=== PATIENT | male | born 1970 | race Caucasian/White ===

== ENCOUNTER 2017-10-24 19:37 | Inpatient (IN) | payer OTHER ==
[~2017-10-24] VITALS: Ht 170.2 cm; Wt 83.9 kg
[~2017-10-24 19:37] MED LIST: ADVAIR 250-501 EACH INH; CHLORDIAZEPOXID25 M3 PO; CLEOCIN HCL300 M1 PO; DAILY VALUE1 EACH PO; FISH OIL 1,0001 EAC1 PO; GLUCOSAMINE &1 EAC1 PO; LEXAPRO20 M1 PO; NALTREXONE HCL50 M1 PO; TOPROL XL100 M1 PO; VICODIN 5-3001 EACH PO; VITAMIN D31000 UNI1 PO; [UNRECOGNIZED DRUG - CODE] PO
[2017-10-24 20:33] LABS: ABSOLUTE BASOPHIL COUNT 0.1 /CUMM (0.0-0.2); ABSOLUTE EOSINOPHIL COUNT 0.1 /CUMM (0.0-0.7); ABSOLUTE GRANULOCYTE CT 3.1 /CUMM (1.4-6.5); ABSOLUTE LYMPH COUNT 3.4 /CUMM (1.2-3.4); ABSOLUTE MONOCYTE COUNT 0.4 /CUMM (0.10-0.60); BASOPHIL % 1.1 % (0.0-2.0); EOSINOPHIL % 1.5 % (0-5); GRANULOCYTE % 43.9 % (42.2-75.2); HEMATOCRIT 43.3 % (42-52); MEAN CORPUSCULAR HGB 31.4 PG (27.0-31.0); MEAN CORPUSCULAR VOLUME 92.3 FL (80.0-94.0); MEAN PLATELET VOLUME 7.6 FL (7.4-10.4); PLATELET COUNT 254 /CUMM (130-400); RBC DISTRIBUTION WIDTH 13.1 % (11.5-14.5); RED BLOOD CELL CT 4.69 /CUMM (4.70-6.10); WHITE BLOOD CELL COUNT 7.1 /CUMM (4.8-10.8)
--- NOTE | 2017-10-24 22:05 | ED NECK/BACK PAIN COMPLAINT ---
See Addendum History of Present Illness General Chief Complaint: General Adult Stated Complaint: PT HAS PAIN ON THE RIGTH SIDE AND IS NUMB Source: patient, old records Exam Limitations: no limitations Vital Signs & Intake/Output Vital Signs & Intake/Output Vital Signs Date Time Temp Pulse Resp B/P B/P Pulse O2 O2 Flow FiO2 Mean Ox Delivery Rate 10/25 0135 98.2 88 18 128/82 96 Room Air 10/25 0134 98.2 88 18 128/82 10/24 2347 98.6 90 18 104/68 10/24 2347 98.6 90 18 104/68 95 Room Air 10/24 1957 98.4 85 16 155/105 95 Room Air ED Intake and Output 10/25 0000 10/24 1200 Intake Total Output Total Balance Patient 190 lb Weight Allergies Coded Allergies: No Known Allergies (11/09/15) Reconcile Medications Chlordiazepoxide HCl 25 MG CAPSULE 1-2 CAP PO TID PRN alcohol withdrawal symptoms eight tabs...[id number] Cholecalciferol (Vitamin D3) (Vitamin D3) 1,000 UNIT CAPSULE 1 CAP PO DAILY SUPPLEMENT (Reported) Escitalopram Oxalate (Lexapro) 20 MG TABLET 1 TAB PO DAILY ANXIETY (Reported) Fluticasone/Salmeterol (Advair 250-50 Diskus) (Unknown Strength) BLST.W.DEV ( Unknown Dose) INH BID RESPIRATORY (Reported) Gluc 2KCL/Chondr/Cecile Hy/Hy AC (Glucosamine & Chondroitin Cap) 1 EACH CAPSULE 1 CAP PO DAILY SUPPLEMENT (Reported) Metoprolol Succ XL (Toprol XL) 100 MG TAB.ER.24H 1 TAB PO DAILY BP (Reported) Multivitamin (Daily Value) 1 EACH TABLET 1 TAB PO DAILY VITAMIN SUPPORT ( Reported) Naltrexone HCl 50 MG TABLET 1 TAB PO QPM SUBSTANCE ABUSE (Reported) [place]-3 Fatty Acids/Fish Oil (Fish Oil 1,000 MG Softgel) 1 EACH CAPSULE 1 CAP PO DAILY SUPPLEMENT (Reported) Vit B Complex 100 Cmb #3/Herbs (Balanced B-100 Tablet) 100 MG TABLET 1 TAB PO DAILY VITAMIN SUPPORT (Reported) Triage Note: PT TO TRIAGE C/O NECK PAIN X5 DAYS WITH R SIDE FACE AND ARM NUMBNESS SINCE YESTERDAY. PT STATES HAD 1/2 PINT VODKA AT 10 AM TO TRY AND "CURE THE PAIN." DENIES DAILY DRINKING. DENIES W/D SEIZURES. DENIES CP. Triage Nurses Notes Reviewed? yes Onset: Abrupt Duration: week(s): (1), intermittent, waxing and waning Timing: recent history Quality/Severity: mild (numbness) Location: paraspinous muscles Radiation: none Method of Injury: lifting pergola Associated Symptoms: etoh use HPI: 2-year-old male with history of hypertension, alcohol abuse presents to the ER complaining of right-sided neck pain radiating down his right arm and down his right back to his leg for the past 1 week after he states he was lifting a Pergola up. This happened at work there was no fall. He denies any chest pain shortness of breath. The symptoms are waxing and waning and intermittent in nature. Nothing preceded the episodes though. He denies any facial weakness slurred speech. His mother denies any changes mental status. No headache. He states at times his face feels numb. The patient does report that he had been drinking this evening in an attempt to improve his symptoms. On arrival the patient states that he is also looking for alcohol detox. He drinks daily he is gone through bad withdrawals before however denies history of seizure. No SI no HI. He denies any drug use. (Alfonzo Blanchard) Past History Travel History Traveled to [place] past 21 day No Medical History Any Pertinent Medical History? 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 No (Alfonzo Blanchard) Review of Systems Review of Systems Constitutional: Reports: see HPI. Comments Review of systems: See HPI, All other systems negative. Constitutional, no chills no fever, HEENT: no sore throat no congestion Cardiovascular: No chest pain , Skin: no rashes, no change in skin Respiratory: No dyspnea no cough no sputum GI: No nausea no vomiting, Muscle skeletal: No joint pain, no back pain, no neck pain, Neurologic: , no headache Heme/endocrine: No bruising (Alfonzo Blanchard) Physical Exam Physical Exam General Appearance: well developed/nourished, alert, awake Neck: normal inspection, supple, full range of motion Comments: Well-developed well-nourished person in no acute distress HEENT: Normal EENT exam; PERRL, EOMI, no nystagmus. HEAD is atraumatic. moist mucous membranes. Neck: Supple, no bruit normal range of motion Back: Full range of motion Cardiovascular: Regular rate and rhythms no murmurs Respiratory: Chest nontender.There were no bony deformities, no asymmetry. No respiratory distress. Patient speaking in full complete sentences. Breath sounds clear to auscultation bilaterally: NO W/R/R Abdomen: Soft, nontender nondistended, Extremity: No edema, full range of motion of extremities, normal and equal pulses bilaterally, 5 out of 5 strength noted to bilateral upper and lower extremities Neuro: Alert oriented x3, motor sensory normal, cranial nerves II through XII grossly intact. There were no obvious focal neurologic abnormalities. Skin: No appreciable rash on exposed skin, skin is warm and dry. Psych: Mood and affect is normal, memory and judgment is normal. Core Measures CVA/TIA Diagnosis: No (Alfonzo Blanchard) Progress Differential Diagnosis: C spine injury, cauda equina syn, herniated disc, myofascial strain, spinal cord inj, TIA. CVA, ETOH ABUSE, ETOH WITHDRAWAL, ELECTROLYTE ABNORMALITY Plan of Care: Orders Procedure Date/time Status URINE DRUG SCREEN FOR ER ONLY 10/25 0040 Active Pathway - chart 10/25 0039 Active CIWA 10/243 Active Add-on Test (ER Only) 10/24 2216 Active ETHANOL 10/24 202 Complete TROPONIN LEVEL 10/24 1950 Complete LIPASE 10/24 1950 Complete COMPREHENSIVE METABOLIC PANEL 10/24 1950 Complete CBC WITHOUT DIFFERENTIAL 10/24 1950 Complete EKG 10/24 1939 Active Current Medications Sig/Romeo Start time Last Medication Dose Stop Time Status Admin Lorazepam 1.5 MG Q12H 10/27 0600 UNVr (Ativan) 10/27 180 Lorazepam 1.5 MG Q6 10/26 0600 UNVr (Ativan) 10/26 1801 Metoprolol Tartrate 100 MG BID 10/25 0900 UNVr (Lopressor) Escitalopram Oxalate 10 MG 0800 10/25 0800 UNVr (Lexapro) Lorazepam 2 MG Q6 10/25 0600 UNVr (Ativan) 10/26 0001 Laboratory Tests 10/25/17 0120: Urine Opiates Screen Pending, Methadone Screen Pending, Barbiturate Screen Pending, Ur Phencyclidine Scrn Pending, Amphetamines Screen Pending, U Benzodiazepines Scrn Pending, Urine Cocaine Screen Pending, Urine Cannabis Screen Pending 10/24/172025: Anion Gap 13, Estimated GFR > 60, BUN/Creatinine Ratio 18.3, Glucose 135 H, Calcium 8.2 L, Total Bilirubin 0.5, AST 36, ALT 44, Alkaline Phosphatase 78, Troponin I < 0.01, Total Protein 6.8, Albumin 4.1, Globulin 2.7, Albumin/ Globulin Ratio 1.5, Lipase 238, CBC w Diff NO MAN DIFF REQ, RBC 4.69 L, MCV 92.3, MCH 31.4 H, MCHC 34.0, RDW 13.1, MPV 7.6, Gran % 43.9, Lymphocytes % 48.3 , Monocytes % 5.2, Eosinophils % 1.5, Basophils % 1.1, Absolute Granulocytes 3.1 , Absolute Lymphocytes 3.4, Absolute Monocytes 0.4, Absolute Eosinophils 0.1, Absolute Basophils 0.1, Serum Alcohol 367.0 I discussed with the patient all his labs CAT scan is neurologically intact, no focal weakness to the right side. The patient is requesting alcohol detox and discussed with them plan going forward we will watch him overnight given his elevated alcohol level at this time, we will MONITOR ciwa levels 100 case d/w and signed out to dr cerna pending sobriety, [facility] Diagnostic Imaging: Viewed by Me: Radiology Read, CT Scan. Discussed w/RAD: Radiology Read, CT Scan. Radiology Impression: PATIENT: BOO MCCARTY PRESENT AGE: 47 PATIENT ACCOUNT NO: [id number] : 69 LOCATION: [facility] ORDERING PHYSICIAN: Alfonzo CARLISLE SERVICE DATE: 10/24/17 EXAM TYPE: RAD - XRY-PORTABLE CHEST XRAY EXAMINATION: XR PORTABLE CHEST CLINICAL INFORMATION: Congestion. COMPARISON: None TECHNIQUE: Portable frontal view of the chest was obtained. FINDINGS: There is a mild linear streaky densities in the left lower lung. Right lung is clear. No pleural effusions are seen. The cardiomediastinal silhouette is normal. No acute osseous abnormality is visible. IMPRESSION: Mild amount of linear streaky densities in the left lower lung which may reflect scar or plate-like atelectasis. Otherwise, no airspace consolidation. DICTATED BY: Dk Kumar MD DATE/TIME DICTATED:10/24/172253 SEWAGE RETICULATION DRAFTING OFFICER:LOPEZ DATE/TIME TRANSCRIBED:10/24/172253 CONFIDENTIAL, DO NOT COPY WITHOUT APPROPRIATE AUTHORIZATION. <Electronically signed in Other Vendor System> SIGNED BY: Dk Kumar MD 10/24/172257 , PATIENT: BOO MCCARTY PRESENT AGE: 47 PATIENT ACCOUNT NO: [id number] : 69 LOCATION: [facility] ORDERING PHYSICIAN: Alfonzo CARLISLE SERVICE DATE: 10/24/17 EXAM TYPE: CAT - CT HEAD WO IV CONTRAST EXAMINATION: CT HEAD WITHOUT CONTRAST CLINICAL INFORMATION: Right-sided numbness. COMPARISON: Head CT from 06/04/2017. TECHNIQUE: Contiguous axial imaging was performed from the skull base to vertex without intravenous administration of contrast. The study is limited with motion artifacts. DLP: 777.6 mGy-cm FINDINGS: There is no evidence of acute intracranial hemorrhage or territorial infarction. No abnormal mass effect or midline shift is seen. Mcguire to white matter differentiation is well preserved. No extra-axial fluid collections are identified. The ventricles are normal in size. There is no abnormal attenuation within the brain parenchyma. The osseous structures and soft tissues are normal. The mastoid air cells are well aerated. There is mucosal opacification of the left maxillary sinus with mild to moderate mucosal thickening in the ethmoid sinus air cells. IMPRESSION: Limited study with motion artifacts. Otherwise, no acute intracranial pathology. Worsened mucosal opacification of the left maxillary sinus with mild to moderate mucosal thickening in the anterior ethmoid air cells bilaterally. DICTATED BY: Dk Kumar MD DATE/TIME DICTATED:10/24/172235 SEWAGE RETICULATION DRAFTING OFFICER:NAV DATE/ TIME TRANSCRIBED:10/24/172235 CONFIDENTIAL, DO NOT COPY WITHOUT APPROPRIATE AUTHORIZATION. <Electronically signed in Other Vendor System> SIGNED BY: Dk Kumar MD 10/24/172241 Initial ED EKG: nsr at 80, no acute st seg changes, normal axis Prior EKG: unchanged (05/2017) Hand-Off Endorsed To: Ayleen STOKES,Dk Garland Endorsed Time: 0100 Pending: other (sobriety, ciwa) (Cecilia CARLISLE,Alfonzo) Departure Departure Disposition: STILL A PATIENT Condition: Stable Clinical Impression Primary Impression: Alcohol abuse Referrals: Jorden STOKES,Dk Nelson (PCP/Family) Additional Instructions: Follow up with your pmd this week. return with any concerns Departure Forms: Customer Survey General Discharge Information (Alfonzo Blanchard) PA/THICKENER OPERATOR Co-Sign Statement Statement: ED Attending supervision documentation- [] I saw and evaluated the patient. I have also reviewed all the pertinent lab results and diagnostic results. I agree with the findings and the plan of care as documented in the PA's/THICKENER OPERATOR's documentation. [X] I have reviewed the ED Record and agree with the PA's/THICKENER OPERATOR's documentation. [] Additions or exceptions (if any) to the PAs/THICKENER OPERATOR's note and plan are summarized below: [] (Ayleen STOKES,Dk Garland)
--- NOTE | 2017-10-24 22:42 | CT SCAN REPORT ---
EXAMINATION: CT HEAD WITHOUT CONTRAST CLINICAL INFORMATION: Right-sided numbness. COMPARISON: Head CT from 06/04/2017. TECHNIQUE: Contiguous axial imaging was performed from the skull base to vertex without intravenous administration of contrast. The study is limited with motion artifacts. DLP: 777.6 mGy-cm FINDINGS: There is no evidence of acute intracranial hemorrhage or territorial infarction. No abnormal mass effect or midline shift is seen. Mcguire to white matter differentiation is well preserved. No extra-axial fluid collections are identified. The ventricles are normal in size. There is no abnormal attenuation within the brain parenchyma. The osseous structures and soft tissues are normal. The mastoid air cells are well aerated. There is mucosal opacification of the left maxillary sinus with mild to moderate mucosal thickening in the ethmoid sinus air cells. IMPRESSION: Limited study with motion artifacts. Otherwise, no acute intracranial pathology. Worsened mucosal opacification of the left maxillary sinus with mild to moderate mucosal thickening in the anterior ethmoid air cells bilaterally.
--- NOTE | 2017-10-24 22:58 | RADIOLOGY REPORT ---
EXAMINATION: XR PORTABLE CHEST CLINICAL INFORMATION: Congestion. COMPARISON: None TECHNIQUE: Portable frontal view of the chest was obtained. FINDINGS: There is a mild linear streaky densities in the left lower lung. Right lung is clear. No pleural effusions are seen. The cardiomediastinal silhouette is normal. No acute osseous abnormality is visible. IMPRESSION: Mild amount of linear streaky densities in the left lower lung which may reflect scar or plate-like atelectasis. Otherwise, no airspace consolidation.
[2017-10-24 23:47] VITALS: BP 104/68
[2017-10-25] VITALS (12 sets, daily range): BP systolic 128–180; BP diastolic 69–110
--- NOTE | 2017-10-25 20:05 | History & Physical ---
Toshia Granado 10/25/17 2005: General Information and HPI History of Present Illness: Mr. Sung is a 47-year-old male with past medical history significant for alcohol use disorder, HTN, anxiety who presents to the ED with neck pain and alcohol withdrawal. 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 When he got home he drank a pint of vodka to "self medicate" himself. Prior to that he reports he was sober for 1 week but often binge drink every other week. He has been admitted for alcohol withdrawal/detoxification 2-3 times, his last admission was 1 year ago at [facility]. He was previously placed on a Librium taper and weaned off for anxiety and subsequently placed on Gabapentin. He has had one alcoholic seizure at [facility] > 25 years ago. 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 Exam & Diagnostic Data Last 24 Hrs of Vital Signs/I&O Vital Signs Date Time Temp Pulse Resp B/P B/P Pulse O2 O2 Flow FiO2 Mean Ox Delivery Rate 10/26 2039 98.8 70 22 137/69 10/25 2040 98.8 70 22 137/69 93 Room Air 10/25 1840 98.8 98 20 152/98 10/25 1838 98.8 98 20 152/98 100 Room Air 10/25 1659 98.8 68 24 160/104 94 Room Air 10/25 1658 98.8 68 24 160/104 10/25 1431 83 16 164/106 10/25 1427 83 16 164/106 93 Room Air 10/25 1143 98.8 80 16 153/96 10/25 1143 98.8 80 16 153/96 94 Room Air 10/25 1116 90 145/76 10/25 0840 98.9 90 16 145/76 10/25 0835 98.9 90 16 145/76 94 Room Air 10/25 0628 99.1 82 18 132/84 10/25 0628 99.1 82 18 132/84 95 Room Air 10/25 0518 98.1 82 18 142/86 95 Room Air 10/25 0440 98.1 82 18 142/86 10/25 0333 98.0 86 18 144/84 95 Room Air 10/25 0231 98.0 86 18 144/84 10/25 0135 98.2 88 18 128/82 96 Room Air 10/25 0134 98.2 88 18 128/82 10/24 2347 98.6 90 18 104/68 10/24 2347 98.6 90 18 104/68 95 Room Air Intake & Output 10/25 1600 10/25 0800 10/25 0000 Intake Total Output Total Balance Patient 190 lb Weight Physical Exam General Appearance Alert, Oriented X3, Cooperative, No Acute Distress HEENT Atraumatic, PERRLA, EOMI, Mucous Membr. moist/pink Neck Supple, No JVD, full range of motion in cervical spine Cardiovascular Regular Rate, Normal S1, Normal S2, No Murmurs Lungs mild BL wheezing Abdomen Normal Bowel Sounds, Soft, No Tenderness Neurological BL hand tremors Extremities No Edema Last 24 Hrs of Labs/Mayco: Laboratory Tests 10/25/17 2044: Magnesium Cancelled 10/25/17 0120: Urine Opiates Screen < 100, Methadone Screen 53, Barbiturate Screen < 60, Ur Phencyclidine Scrn < 6.00, Amphetamines Screen < 100, U Benzodiazepines Scrn < 85, Urine Cocaine Screen < 50, Urine Cannabis Screen < 5.00 Diagnostic Data EKG Results SR, HR 78, QTc 452 CXR Results FINDINGS: There is a mild linear streaky densities in the left lower lung. Right lung is clear. No pleural effusions are seen. The cardiomediastinal silhouette is normal. No acute osseous abnormality is visible. IMPRESSION: Mild amount of linear streaky densities in the left lower lung which may reflect scar or plate-like atelectasis. Otherwise, no airspace consolidation. Other Results CT HEAD WITHOUT CONTRAST IMPRESSION: Limited study with motion artifacts. Otherwise, no acute intracranial pathology. Worsened mucosal opacification of the left maxillary sinus with mild to moderate mucosal thickening in the anterior ethmoid air cells bilaterally. Assessment/Plan Assessment: Mr. Sung is a 47-year-old male with past medical history significant for alcohol use disorder, HTN, anxiety who presents to the ED with neck pain and alcohol withdrawal. Problem list: Alcohol withdrawal/detoxification Right-sided neck pain Plan: Admit to general medicine for further evaluation and management Ativan per CIWA protocol TRC/nebs when necessary Resume home medications Thiamine, Folic acid, MVI supplementation Warm/cold compressions for neck pain Psych consult Diet: Regular DVT ppx: ALPS, sc heparin Code: Full As Ranked By This Provider Problem List: 1. Alcohol intoxication 2. Alcohol abuse 3. Alcohol dependency Core Measures/Misc (03/25) Acute Coronary Syndrome ACS Diagnosis: No Congestive Heart Failure Congestive Heart Failure Diagnosis No Cerebrovascular Accident CVA/TIA Diagnosis: No VTE (View Protocol) VTE Risk Factors Age>40 No Mechanical VTE Prophylaxis d/t N/A MechProphylax Ordered No VTE Pharm Prophylaxis d/t NA PharmProphylax ordered Sepsis (View protocol) Sepsis Present: No Nurys Yost 10/26/17 0102: General Information and HPI Allergies/Medications Home Med list Cholecalciferol (Vitamin D3) (Vitamin D) 2,000 UNIT CAPSULE 1 CAP PO DAILY SUPPLEMENT (Reported) Escitalopram Oxalate (Lexapro) 20 MG TABLET 1 TAB PO QPM ANXIETY (Reported) Fluticasone/Salmeterol (Advair 250-50 Diskus) 250 MCG-50 MCG/DOSE BLST.W.DEV 1 PUF INH BID lung (Reported) Fluticasone/Salmeterol (Advair 250-50 Diskus) 1 EACH BLST.W.DEV 1 PUF INH DAILY RESP. (Reported) Gabapentin 100 MG CAPSULE 1 CAP PO TID PRN ANXIETY (Reported) Gluc 2KCL/Chondr/Cecile Hy/Hy AC (Glucosamine & Chondroitin Cap) (Unknown Strength ) CAPSULE (Unknown Dose) PO DAILY SUPPLEMENT (Reported) Metoprolol Succ XL (Toprol XL) 100 MG TAB.ER.24H 1 TAB PO DAILY BP (Reported) Resident Review Statement Resident Statement: examined this patient, discussed with internal controls specialist, reviewed images, amended to note Other Findings: 47-year-old gentleman with past medical history of alcohol abuse with 2 episodes of alcohol detox, one episode of benzo/alcohol withdrawal seizures, smoker came to the hospital with chief complaint of neck pain for 3 days and also requesting alcohol detox. Patient reports that he has episodes of binge drinking 1 pint to 1 quart of vodka and recently after he had an neck strain due to moving heavy objects, he tried to treat his pain with excessive alcohol intake which resulted in binge drinking and now is coming to the hospital for alcohol detox. Patient denies SI or HI. Patient denies any nausea, vomiting, abdominal pain, dizziness, fevers, chills and the pain and it is much better. No focal neurological symptom. Patient also reports that he has history of anxiety and he is taking Lexapro and gabapentin as well. Patient is a daily smoker but denies using any illicit drugs. Patient was hospitalized in [facility] for [facility] couple of years ago for bronchitis/pneumonia and was hospitalized for alcohol/benzo withdrawal in [facility] about 20 years ago. No history of GI bleeding or ascites. Upon examination vitals in the ED with a stable with mildly elevated blood pressure, no fevers and good O2 saturation on room air Alert and oriented 3 HEENT Atraumatic, PERRLA, EOMI Neck Supple, No JVD, Cardiovascular Regular Rate, Normal S1, Normal S2 Lungs mild bilateral wheezing abdomen Normal Bowel Sounds, Soft, No Tenderness, No Hepatospenomegaly, No Masses Neurological Normal Gait, Normal Speech, Strength at 5/5 X4 Ext, Sensation Intact Extremities No Clubbing, No Cyanosis, No Edema,Normal Pulses Labs were notable for serum alcohol of 367 on October 24, calcium 8.2, glucose 137 , Chest x-ray Mild amount of linear streaky densities in the left lower lung which may reflect scar or plate-like atelectasis. Otherwise, no airspace consolidation. HEAD CT Worsened mucosal opacification of the left maxillary sinus with mild to moderate mucosal thickening in the anterior ethmoid air cells bilaterally. Assessment Alcohol abuse History of anxiety on Lexapro History of hypertension on metoprolol History of possible COPD on Advair? History of benzo/alcohol withdrawal seizures Mildly decreased calcium Plan Admit to general medicine floor Put the patient on thiamine, folic acid, multivitamin IV Ativan per CLIFFORD P.o. Ativan 2 mg every 6 for now Psychiatry and social consult in the morning Metoprolol 100 daily for blood pressure control Gabapentin 100 x3 times a day and Lexapro 20 mg daily Check magnesium and calcium in the morning and replete it one time for now TR nebs and continue Advair DVT prophylaxis is mechanical and subQ Lovenox, full code, heart healthy diet, Tylenol for pain Nixon STOKES, [facility] 10/26/17 0220: Attending MD Review Statement Attending Statement Attending MD Statement: examined this patient, discuss w/resident/PA/ANESTHESIOLOGIST/PHYSICIAN, agreed w/resident/PA/ANESTHESIOLOGIST/PHYSICIAN, reviewed images, amended to note Attending Assessment/Plan: 47 yo M smoker with h/o HTN, alcohol abuse, anxiety/depression, possible alcohol or benzo withdrawal seizure (>10 yrs ago), came to the ER for evaluation of right neck pain. Patient works at [employer] and 2 days ago lifted a heavy box, wherein he thinks he pulled a neck muscle and started having severe neck pain associated with right facial numbness. To combat the pain, he drank a pint of vodka. He is a binge drinker and drinks about a pint to a quart of vodka. He drinks almost every other day and tends to binge over the weekends. Last drink was 1 day prior. He states he was sober for 1 week prior to this. History is not very reliable. He told me his last detox was 7 yrs ago at [facility], but he reported to residents that last detox was 9 months ago. He currently denies SI or HI. Vitals: afebrile, hypertensive 180/110, HR 70-90, sats 94% RA. Exam: AAO, in no distress, mucosa dry, Chest b/l scattered wheeze, Heart S1S2 regular, Abd soft, LE no edema. Neuro exam nonfocal. Patient reports his neck pain is far better and right facial numbness is resolved. Labs unremarkable, alcohol 367. Utox some methadone but negative. CT head: no acute pathology, worsening mucosal opacification of left maxillary sinus with mild to moderate mucosal thickening in anterior ethmoid air cells. CXR: mild amount of linear streaky densities in left lower lung possibly atelectasis, no consolidation. EKG: sinus rhythm, no acute changes. Assessment and plan: 1. Alcohol withdrawal 2. Uncontrolled essential hypertension 3. Anxiety and depression 4. Right neck muscular sprain improving 5. Wheezing, mild bronchospasm likely underlying COPD given h/o smoking - Admit to general medicine - CIWA protocol, IV ativan per CIWA - PO ativan 2 mg Q6 - Banana bag x 1, change to PO thiamine, folic acid and MVI - Psych consult to help with anxiety management pt is on gabapentin and lexapro - Continue metoprolol for hypertension, consider adding amlodipine or ACEI - TRC nebs, patient has been on advair since he was diagnosed with bronchitis, will continue - Social work consult - Smoking cessation counseling, nicotine patch - Neck pain local hot compresses, analgesic balm and as needed motrin. DVT ppx Lovenox. Full code.
[2017-10-25] MEDS ORDERED: GABAPENTIN100 M2 PO (21:41)
[2017-10-25] MEDS ORDERED: GLUCOSAMINE &1 EAC1 PO (21:45)
[2017-10-25] MEDS ORDERED: VITAMIN D2000 UNIT PO (21:45)
--- NOTE | 2017-10-26 00:47 | Admission Certification ---
Admission Certification Certification Statement - As attending physician, I certify that at the time of - admission, based on clinical presentation, severity of - symptoms, need for further diagnostic testing and - therapeutic interventions, and risk of adverse outcomes - without in-hospital treatment, in my clinical assessment, - this patient requires an acute hospital stay for a minimum - of two nights or longer. I have also considered psychsocial - factors such as support system, advanced age, financial - issues, cognitive issues, and failed out-patient treatments, - past re-admission history, safety of patient, and lack of - compliance as applicable. Specific rationale supporting this admission is: Alcohol withdrawal.
[2017-10-26] MEDS ORDERED: ADVAIR 250-501 EACH INH (00:56)
[2017-10-26 02:44] VITALS: BP 180/120
[2017-10-26 07:14] VITALS: BP 162/118
--- NOTE | 2017-10-26 07:28 | PN- Housestaff ---
Kayode STOKES,[facility] 10/26/17 0728: Subjective Follow-up For: Alcohol withdrawal/detoxification Right-sided neck pain Subjective: Patient seen and examined with complaint of fatigue. No overnight events. ciwa 0, 11, 4, 4, 7, 5, 5, 8 patient required total of 13 mg of Ativan 2 mg q6 and 1 mg IV PRN Review of Systems Constitutional: Reports: see HPI. Objective Last 24 Hrs of Vital Signs/I&O Vital Signs Date Time Temp Pulse Resp B/P B/P Pulse O2 O2 Flow FiO2 Mean Ox Delivery Rate 10/26 1019 Room Air Room Air 10/26 0809 79 162/118 10/26 0809 79 162/118 10/26 0714 98.7 79 18 162/118 94 10/26 0331 180/120 10/26 0244 180/120 10/26 0004 180/110 10/25 2224 98.7 71 18 180/110 94 Room Air 10/25 2215 98.7 71 16 180/110 10/25 2040 98.8 70 22 137/69 10/25 2040 98.8 70 22 137/69 93 Room Air 10/25 1840 98.8 98 20 152/98 10/25 1838 98.8 98 20 152/98 100 Room Air 10/25 1659 98.8 68 24 160/104 94 Room Air 10/25 1658 98.8 68 24 160/104 10/25 1431 83 16 164/106 10/25 1427 83 16 164/106 93 Room Air 10/25 1143 98.8 80 16 153/96 10/25 1143 98.8 80 16 153/96 94 Room Air Intake & Output 10/26 1600 10/26 0800 10/26 0000 Intake Total 240 20 Output Total 0 Balance 240 20 Intake, IV 20 Intake, Oral 240 Output, Urine 0 Patient 185 lb Weight Weight Reported by Patient Measurement Method Physical Exam General Appearance: Alert, Oriented X3, Cooperative Lungs: Clear to Auscultation Abdomen: Normal Bowel Sounds, Soft, No Tenderness Neurological: Normal Speech Current Medications: Current Medications Sig/Romeo Start time Last Medication Dose Route Stop Time Status Admin Acetaminophen 650 MG Q6P PRN 10/25 2144 AC PO Budesonide/ 2 PUF BID 10/26 0900 AC Formoterol Fumarate INH Calcium Gluconate 0 .STK-MED ONE 10/25 2128 DC IV Calcium Gluconate 1 GM ONCE ONE 10/25 2045 DC 10/25 Sodium Chloride 100 ML IV 10/25 2144 2137 Enoxaparin Sodium 40 MG DAILY 10/26 0900 AC 10/26 SC 0809 Escitalopram Oxalate 10 MG 0800 10/25 0800 AC 10/26 PO 0808 Folic Acid 0 .STK-MED ONE 10/25 215 DC PO Folic Acid 1 MG DAILY 10/25 2145 AC 10/26 PO 0808 Labetalol HCl 10 MG ONCE ONE 10/26 0300 DC 10/26 IV 10/26 0301 0331 Lisinopril 20 MG DAILY 10/26 0900 AC 10/26 PO 0809 Lorazepam 1.5 MG Q12H 10/27 0600 DC PO 10/27 1801 Lorazepam 1.5 MG Q6 10/26 0600 CAN PO 10/26 1801 Lorazepam 2 MG ONE ONE 10/25 2330 DC 10/25 IV 10/25 2331 2349 Lorazepam 0 Q1P PRN 10/25 2145 AC 10/26 IV 0532 Lorazepam 0 .STK-MED ONE 10/25 1653 DC PO Lorazepam 0 .STK-MED ONE 10/25 1653 DC .ROUTE Lorazepam 2 MG ONE ONE 10/25 1645 DC 10/25 IV 10/25 1646 1659 Lorazepam 0 .STK-MED ONE 10/25 1145 DC PO Lorazepam 2 MG Q6 10/25 0600 AC 10/26 PO 11/01 0600 0532 Losartan Potassium 25 MG ONCE ONE 10/26 0245 CAN PO 10/26 0246 Losartan Potassium 25 MG ONCE ONE 10/25 2330 DC 10/26 PO 10/25 2331 0004 Magnesium Oxide 400 MG ONE ONE 10/25 2100 DC 10/25 PO 10/25 2101 2137 Metoprolol Succinate 100 MG DAILY 10/26 0900 AC 10/26 PO 0809 Metoprolol Tartrate 0 .STK-MED ONE 10/25 2128 DC PO Metoprolol Tartrate 0 .STK-MED ONE 10/25 1121 DC PO Metoprolol Tartrate 100 MG BID 10/25 0900 DC 10/25 PO 2137 Multivitamins 1 TAB DAILY 10/26 0900 AC 10/26 PO 0809 Thiamine HCl 0 .STK-MED ONE 10/25 2157 DC PO Thiamine HCl 100 MG DAILY 10/25 2144 AC 10/26 PO 0809 Last 24 Hrs of Lab/Mayco Results Last 24 Hrs of Labs/Mics: Laboratory Tests 10/26/17 0715: Anion Gap 11, Estimated GFR > 60, BUN/Creatinine Ratio 12.9, Magnesium 1.7, CBC w Diff NO MAN DIFF REQ, RBC 4.74, MCV 91.4, MCH 31.9 H, MCHC 34.9, RDW 13.2, MPV 8.1, Gran % 53.1, Lymphocytes % 34.3, Monocytes % 10.2 H, Eosinophils % 2.0 , Basophils % 0.4, Absolute Granulocytes 3.9, Absolute Lymphocytes 2.5, Absolute Monocytes 0.7 H, Absolute Eosinophils 0.1, Absolute Basophils 0 10/25/172043: Magnesium Cancelled Assessment/Plan Assessment: 47-year-old gentleman with past medical history of alcohol abuse with 2 episodes of alcohol detox, one episode of benzo/alcohol withdrawal seizures, smoker came to the hospital with chief complaint of neck pain for 3 days and also requesting alcohol detox. vitals in the ED with a stable with mildly elevated blood pressure Labs were notable for serum alcohol of 367 on October 24, calcium 8.2, glucose 137 The patient is being treated and evaluated for following conditions #Alcohol detoxification -CIWA max 11 -Ativan per CIWA -Ativan 2mg q6 -Multivitamin Folic acid Thiamine -Monitor for DTs and withdrawal seizures -Social work consult #History of hypertension Patient has history of essential hypertension and is on metoprolol at home. Overnight the patient's blood pressure was running in high range up to 180/100 patient received 10 mg of labetalol and 25 mg of losartan. Patient is currently passing through alcohol withdrawal and its expected his heart rate and blood pressure to runn at the higher range. -Continue home dose of metoprolol -Lisinopril added 20mg -Continue to monitor #Right-sided neck pain Likely muscular -Tylenol and motrin for pain -Warm compresses -Lidocaine patch #History of benzo/alcohol withdrawal seizures and anxiety -Continue gabapentin 100 mg 3 times a day -Continue Lexapro 30 mg daily -Psychiatric consult #Possible history of COPD on Advair -Continue Advair -TRC #Regular diet DVT ppx Lovenox/ Full code Problem List: 1. Alcohol abuse Pain Ratin Pain Location: n/a Pain Goal: Pain 4 or less Pain Plan: prn Tomorrow's Labs & Rationales: Mega Wadsworth MD 10/26/17 1230: Attending MD Review Statement Attending Statement Attending MD Statement: examined this patient, discuss w/resident/PA/HEALTH CARE LIAISON, agreed w/resident/PA/HEALTH CARE LIAISON, discussed with family, discussed with nursing, discussed with case mgmt Attending Assessment/Plan: 47 yo M smoker with h/o HTN, alcohol abuse, anxiety/depression, possible alcohol or benzo withdrawal seizure (>10 yrs ago), came to the ER for evaluation of right neck pain. Vitals: afebrile, hypertensive 160/118, HR 70-90, sats 92-94% RA. Physical exam is otherwise unremarkable Assessment and plan: 1. Alcohol withdrawal 2. Uncontrolled essential hypertension 3. Anxiety and depression 4. Right neck muscular sprain improving 5. Wheezing, mild bronchospasm likely underlying COPD given h/o smoking - CIWA protocol - maximum score of about 10 - PO ativan 2 mg Q6 - Banana bag x 1 given, now on oral MVI's - Psych consult to help with anxiety management pt is on gabapentin and lexapro - Added lisinopril - can go up on lisinopril to 40 mg OD, however, patient's BP elevation is from alcohol withdrawal most likely - TRC nebs, patient has been on advair since he was diagnosed with bronchitis, will continue - Social work consult - Smoking cessation counseling, nicotine patch - Neck pain local hot compresses, analgesic balm and as needed motrin. DVT ppx Lovenox. Full code.
[2017-10-26 08:24] LABS: ABSOLUTE BASOPHIL COUNT 0 /CUMM (0.0-0.2); ABSOLUTE EOSINOPHIL COUNT 0.1 /CUMM (0.0-0.7); ABSOLUTE GRANULOCYTE CT 3.9 /CUMM (1.4-6.5); ABSOLUTE LYMPH COUNT 2.5 /CUMM (1.2-3.4); ABSOLUTE MONOCYTE COUNT 0.7 /CUMM (0.10-0.60); BASOPHIL % 0.4 % (0.0-2.0); GRANULOCYTE % 53.1 % (42.2-75.2); HEMATOCRIT 43.3 % (42-52); MEAN CORPUSCULAR HGB 31.9 PG (27.0-31.0); MEAN CORPUSCULAR HGB CONC 34.9 G/DL (33.0-37.0); MEAN CORPUSCULAR VOLUME 91.4 FL (80.0-94.0); MEAN PLATELET VOLUME 8.1 FL (7.4-10.4); PLATELET COUNT 199 /CUMM (130-400); RBC DISTRIBUTION WIDTH 13.2 % (11.5-14.5); RED BLOOD CELL CT 4.74 /CUMM (4.70-6.10); WHITE BLOOD CELL COUNT 7.3 /CUMM (4.8-10.8)
[2017-10-26] MEDS ORDERED: MULTIVITAMINS1 EAC9 PO (11:40)
--- NOTE | 2017-10-26 11:40 | Patient Discharge Instructions ---
Discharge Instructions General Discharge Information You were seen/treated for: alcohol detox Special Instructions: please follow up with your primary care doctor after discharge please follow up with ike MASTERSON after discharge. Call to make an appointment Diet Continue normal diet: Yes Activity Activity Self Limited: Yes Acute Coronary Syndrome Inclusion Criteria At DC or during hospital stay patient has or had the following: ACS DIAGNOSIS No Discharge Core Measures Meds if any: Prescribed or Continued at Discharge Meds if any: NOT Prescribed or Continued at Discharge Congestive Heart Failure Inclusion Criteria At DC or during hospital stay patient has or had the following: CHF DIAGNOSIS No Discharge Core Measures Meds if any: Prescribed or Continued at Discharge Meds if any: NOT Prescribed or Continued at Discharge Cerebrovascular accident Inclusion Criteria At DC or during hospital stay patient has or had the following: CVA/TIA Diagnosis No Discharge Core Measures Meds if any: Prescribed or Continued at Discharge Meds if any: NOT Prescribed or Continued at Discharge Venous thromboembolism Inclusion Criteria VTE Diagnosis No VTE Type NONE VTE Confirmed by (Test) NONE Discharge Core Measures - Per Current guidelines, there needs to be overlap - treatment for the first 5 days of Warfarin therapy. - If discharged on Warfarin prior to 5 days of - overlap therapy, the patient will need to be - assessed for post discharge needs including - *Post discharge parental anticoagulation - *Warfarin and/or parental anticoagulation education - *Follow up date to check INR post discharge At least 5 days overlap therapy as Inpatient No Meds if any: Prescribed or Continued at Discharge Note: Overlap Therapy is Warfarin and Anticoagulant Meds if any: NOT Prescribed or Continued at Discharge
[2017-10-26 14:44] VITALS: BP 152/98
--- NOTE | 2017-10-26 15:44 | Cons- Psychiatry ---
Psychiatric Consult Date of Consult: 10/26/17 Reason for Consult: "Anxiety" Patient is followed by [facility] for PC and psychiatry. History of Present Illness: 47 single, male presents to triage on 10/24/17 @ 2000 with a CC of neck pain X 5 days, right side face and arm numbness since yesterday. One half pint vodka at 10AM to help the pain. History of seizure in early when [facility] instructed him to stop Ativan. Denies any detox in the ICU, or Ativan drip or ICU hospitalization Reports alcohol rehab at [facility] [place] after losing a job in 2007. Periods of sobriety 6 mos, 9 mos, 90 days The patient reports he binges on alcohol when he is stressed out. Denies psychiatry hospitalization follow ed by [facility], and was weaned off Librium and started on Lexapro by Wesley Jose APRN, who is aware the patient is in the hospital. He has a new job at [employer] that he wants to keep. His mother has notified [employer] that the patient is in the hospital, but not why. The patient lives in [place] with his mother, whom he cares for. He has no children. Allergies: Coded Allergies: No Known Allergies (11/09/15) Current Medications: Current Medications Sig/Romeo Start time Last Medication Dose Route Stop Time Status Admin Acetaminophen 650 MG Q6P PRN 10/25 2144 AC PO Budesonide/ 2 PUF BID 10/26 0900 AC Formoterol Fumarate INH Calcium Gluconate 0 .STK-MED ONE 10/25 2128 DC IV Calcium Gluconate 1 GM ONCE ONE 10/25 2044 DC 10/25 Sodium Chloride 100 ML IV 10/25 Enoxaparin Sodium 40 MG DAILY 10/26 0900 AC 10/26 SC 0809 Escitalopram Oxalate 10 MG 00 10/25 0800 AC 10/26 PO 0808 Folic Acid 0 .STK-MED ONE 10/25 2156 DC PO Folic Acid 1 MG DAILY 10/25 2144 AC 10/26 PO 0808 Labetalol HCl 10 MG ONCE ONE 10/26 0300 DC 10/26 IV 10/26 0301 0331 Lidocaine 1 PAT DAILY 10/26 1310 AC 10/26 EXT 1325 Lisinopril 20 MG DAILY 10/26 0900 AC 10/26 PO 0809 Lorazepam 1.5 MG Q12H 10/27 0600 DC PO 10/27 1801 Lorazepam 1.5 MG Q6 10/26 0600 CAN PO 10/26 1801 Lorazepam 2 MG ONE ONE 10/25 2330 DC 10/25 IV 10/25 2331 2349 Lorazepam 0 Q1P PRN 10/25 2145 AC 10/26 IV 0532 Lorazepam 0 .STK-MED ONE 10/25 1653 DC PO Lorazepam 0 .STK-MED ONE 10/25 1653 DC .ROUTE Lorazepam 2 MG ONE ONE 10/25 1645 DC 10/25 IV 10/25 1646 1659 Lorazepam 2 MG Q6 10/25 0600 AC 10/26 PO 11/01 0600 1326 Losartan Potassium 25 MG ONCE ONE 10/26 0245 CAN PO 10/26 0246 Losartan Potassium 25 MG ONCE ONE 10/25 2330 DC 10/26 PO 10/25 2331 0004 Magnesium Oxide 400 MG ONE ONE 10/25 2100 DC 10/25 PO 10/25 2101 2137 Magnesium Sulfate 1 GM ONCE ONE 10/26 1145 AC Dextrose/Water 100 ML IV 10/26 1544 Metoprolol Succinate 100 MG DAILY 10/26 0900 AC 10/26 PO 0809 Metoprolol Tartrate 0 .STK-MED ONE 10/25 2129 DC PO Metoprolol Tartrate 100 MG BID 10/25 0900 DC 10/25 PO 2137 Multivitamins 1 TAB DAILY 10/26 0900 AC 10/26 PO 0809 Nicotine 14 MG DAILY 10/26 1310 AC TOP Potassium Chloride 40 MEQ ONCE ONE 10/26 1130 DC 10/26 PO 10/26 1131 1326 Thiamine HCl 0 .STK-MED ONE 10/25 2157 DC PO Thiamine HCl 100 MG DAILY 10/25 2145 AC 10/26 PO 0809 Past History Past Medical History Neurological: NONE EENT: NONE Cardiovascular: hypertension Respiratory: NONE Gastrointestinal: NONE Hepatic: NONE Renal: NONE Musculoskeletal: NONE Psychiatric: anxiety, Alcohol use disorder Endocrine: NONE Blood Disorders: NONE Cancer(s): NONE SENIOR EXAMINER/Reproductive: NONE Past Surgical History Surgical History: none, non-contributory Psychosocial History Strengths/Capabilities: Motivated for treatment Physical Limitations (Interventions): Unknown Psychiatric Treatment History Psych Treatment Psychiatric Treatment No (Denies) Diagnosis: Alcohol use disorder Substance-induced mood disorder R/O anxiety, unspecified Risk Factors: substance abuse, male Substance Use/Abuse History Drug Use/Abuse Substances Used/Abused Yes Substance Used/Abused Alcohol First Use Not evaluated Last Used RN BABY How much used/taken Reports 1/2 pint before admission Substance Abuse Treatment Substance Abuse Treatment Past Substance Abuse TX Yes Inpatient Treatment Yes Outpatient Treatment Yes Location of Treatment [facility] Reason for Treatment ALcohol dependence Dates of Treatment 2007 Response to Treatment Unknown Assessment/Plan Mental Status Orientation: Person, Place, Situation Affect: Constricted Speech: WNL Neuro-vegetative: WNL Mental Status Exam: Alert, oriented to place, town, person, day, year, off by one month. Denies AH, TH, or VH; presents no [place] delusions Denies homelessness, helplessness, worthlessness or guilty feelings. He denies SI, HI and denies any history of suicide attempt. Sleep 7-8 hours, rested most mornings. He denies any trauma history He denies psychiatric hospitalization He works at [employer] and has a flexible schedule. Lab Results: Laboratory Tests 10/26 10/25 0715 2044 Chemistry Sodium (137 - 145 mmol/L) 137 Potassium (3.5 - 5.1 mmol/L) 3.5 Chloride (98 - 107 mmol/L) 97 L Carbon Dioxide (22 - 30 mmol/L) 28 Anion Gap (5 - 16) 11 BUN (9 - 20 mg/dL) 9 Creatinine (0.7 - 1.2 mg/dL) 0.7 Estimated GFR (>60 ml/min) > 60 BUN/Creatinine Ratio (7 - 25 %) 12.9 Calcium (8.4 - 10.2 mg/dL) 8.8 Magnesium (1.6 - 2.3 mg/dL) 1.7 Cancelled Lipase (23 - 300 U/L) 86 Hematology CBC w Diff NO MAN DIFF REQ WBC (4.8 - 10.8 /CUMM) 7.3 RBC (4.70 - 6.10 /CUMM) 4.74 Hgb (14.0 - 18.0 G/DL) 15.1 Hct (42 - 52 %) 43.3 MCV (80.0 - 94.0 FL) 91.4 MCH (27.0 - 31.0 PG) 31.9 H MCHC (33.0 - 37.0 G/DL) 34.9 RDW (11.5 - 14.5 %) 13.2 Plt Count (130 - 400 /CUMM) 199 MPV (7.4 - 10.4 FL) 8.1 Gran % (42.2 - 75.2 %) 53.1 Lymphocytes % (20.5 - 51.1 %) 34.3 Monocytes % (1.7 - 9.3 %) 10.2 H Eosinophils % (0 - 5 %) 2.0 Basophils % (0.0 - 2.0 %) 0.4 Absolute Granulocytes (1.4 - 6.5 /CUMM) 3.9 Absolute Lymphocytes (1.2 - 3.4 /CUMM) 2.5 Absolute Monocytes (0.10 - 0.60 /CUMM) 0.7 H Absolute Eosinophils (0.0 - 0.7 /CUMM) 0.1 Absolute Basophils (0.0 - 0.2 /CUMM) 0 Diffential Diagnosis: Alcohol use disorder Substance-induced mood disorder R/O anxiety, unspecified Impression: The patient is calm and cooperative. He states that his goal is to get back to work, which we agree with. I have informed him that it will some days to taper him off lorazepam, so that we minimize the risk of withdrawal seizure. He will need an appointment with [facility]. Uncomplicated alcohol withdrawal so far. We suggest using the ETOH Detox protocol to minimize risk of withdrawal. It is in the Order Sets, as 'ETOH Detox.' As of 1400: CIWA [id number] Lorazepam 11 mg in the last 24 hours, 6 scheduled and 5 PRN. VS @ 0714 162/118, 79HR, 98.7, 18RR, 94% RA Serum ETOH 10/24/17 = 367 Other labs reviewed He is not suicidal, psychotic or delirious. Provisional Treatment Plan: 1, Continue alcohol detox lorazepam taper, per the protocol. Hold scheduled lorazepam for oversedation or respiratory depression. See the Addendum for a copy of this. 2. Social work consult for after care planning. 3. Intensive Outpatient Program, and referral to his normal outpatient provider, Wesley Jose APRN at [facility] in [place]. 4. The patient will need a letter for his employer stating he was in the hospital, but not why. 5. Continue daily thiamine, folate and MVI Addendum Addendum In the order sets as: 'ETOH Detox' Proposed Alcohol Detox Order Set Combining 120 Hour (5 Day) Standing Ativan Taper With CIWA-Triggered PRN Ativan Vital Signs and CIWA q 2 hours x 24 hours then q 4 hours (increase Vital Signs and CIWA scoring back to q 2 hours if CIWA scores >8). Thiamine 100 mg po daily x 3 days, 1st dose now. Folate 1 mg po daily x 3 days, 1st dose now. Multivitamin 1 po daily, 1st dose now. Standing Taper (Hold for Over-sedation or Respiratory Depression, But DO NOT HOLD FOR SLEEP): First 24 hours (Total Standing Ativan 8 mg) Ativan 2 mg PO/IV at time 0 Ativan 2 mg PO/IV at time 6 hours Ativan 2 mg PO/IV at time 12 hours Ativan 2 mg PO/IV at time 18 hours Second 24 hours (Total Standing Ativan 6.5 mg) Ativan 1.5 mg PO/IV at time 0 Ativan 2 mg PO/IV at time 6 hours Ativan 1.5 mg PO/IV at time 12 hours Ativan 1.5 mg PO/IV at time 18 hours Third 24 hours (Total Standing Ativan 5 mg) Ativan 1 mg PO/IV at time 0 Ativan 1.5 mg PO/IV at time 6 hours Ativan 1 mg PO/IV at time 12 hours Ativan 1.5 mg PO/IV at time 18 hours Fourth 24 hours (Total Standing Ativan 3.5 mg) Ativan 1 mg PO/IV at time 0 Ativan 1 mg PO/IV at time 6 hours Ativan 0.5 mg PO/IV at time 12 hours Ativan 1 mg PO/IV at time 18 hours Fifth 24 hours (Total Standing Ativan 2 mg) Ativan 0.5 mg PO/IV at time 0 Ativan 0.5 mg PO/IV at time 6 hours Ativan 0.5 mg PO/IV at time 12 hours Ativan 0.5 mg PO/IV at time 18 hours Sixth 24 hours (Total Standing Ativan 0.5 mg) Ativan 0.5 mg PO/IV at time 0 CIWA-Triggered PRN Ativan Ativan 2 mg PO/IV q 2 hours prn CIWA 12+ or Pulse 111+. Ativan 1 mg PO/IV q 2 hours prn CIWA 8-11 or Pulse 100-110. Revised 12/03/13
[2017-10-26 22:04] VITALS: BP 114/80
[2017-10-27 07:04] VITALS: BP 129/75
--- NOTE | 2017-10-27 08:57 | PN- Housestaff ---
Giovanna Aguilar MD,Ami 10/27/17 0857: Subjective Follow-up For: Alcohol withdrawal/detoxification Right-sided neck pain Subjective: Patient visited today, was sleeping in bed comfortably in no acute distress No fever or chills, no shortness of breathing, no chest pain, no other events. CIWA 0-4 this morning Review of Systems Constitutional: Reports: see HPI. Objective Last 24 Hrs of Vital Signs/I&O Vital Signs Date Time Temp Pulse Resp B/P B/P Pulse O2 O2 Flow FiO2 Mean Ox Delivery Rate 10/27 1515 98.5 90 18 128/80 95 Room Air 10/27 1400 98.7 94 19 142/72 10/27 1000 98.9 91 18 132/84 10/27 0915 91 128/70 10/27 0704 97.9 82 20 129/75 97 Room Air 10/27 0400 98.5 18 10/26 2204 98.7 92 18 114/80 95 Room Air Intake & Output 10/27 1600 10/27 0800 10/27 0000 Intake Total 510 50 300 Output Total 950 700 Balance 510 -900 -400 Intake, IV 10 100 Intake, Oral 500 50 200 Output, Urine 950 700 Physical Exam General Appearance: No Acute Distress, Sleeping Skin: No Rashes Skin Temp/Moisture Exam: Warm/Dry Sepsis Skin Exam (color): Normal for Ethnicity HEENT: Atraumatic Cardiovascular: Normal S1, Normal S2 Lungs: Clear to Auscultation, Normal Air Movement Extremities: No Edema Current Medications: Current Medications Sig/Romeo Start time Last Medication Dose Route Stop Time Status Admin Acetaminophen 650 MG Q6P PRN 10/25 2144 AC PO Budesonide/ 2 PUF BID 10/26 09 AC 10/27 Formoterol Fumarate INH 0918 Enoxaparin Sodium 40 MG DAILY 10/26 0900 AC 10/27 SC 0914 Escitalopram Oxalate 10 MG 0800 10/25 0800 AC 10/27 PO 0914 Folic Acid 1 MG DAILY 10/25 214 AC 10/27 PO 0914 Lidocaine 1 PAT DAILY 10/26 1310 AC 10/27 EXT 0913 Lisinopril 20 MG DAILY 10/26 0900 AC 10/27 PO 0915 Lorazepam 1.5 MG Q6 10/27 1800 AC PO 10/28 180 Lorazepam 1.5 MG Q12H 10/27 0600 DC PO 10/27 1801 Lorazepam 0 Q1P PRN 10/25 2145 AC 10/26 IV 0532 Lorazepam 2 MG Q6 10/25 0600 DC 10/27 PO 11/01 0600 1142 Magnesium Sulfate 1 GM ONCE ONE 10/26 1145 DC 10/26 Dextrose/Water 100 ML IV 10/26 1544 1607 Metoprolol Succinate 100 MG DAILY 10/26 0900 AC 10/27 PO 0915 Multivitamins 1 TAB DAILY 10/26 0900 AC 10/27 PO 0914 Nicotine 14 MG DAILY 10/26 1310 AC 10/27 TOP 0911 Thiamine HCl 100 MG DAILY 10/25 2145 AC 10/27 PO 0915 Last 24 Hrs of Lab/[place]co Results Last 24 Hrs of Labs/Mics: Laboratory Tests 10/27/17 0725: Anion Gap 11, Estimated GFR > 60, BUN/Creatinine Ratio 16.7, Magnesium 2.1 Assessment/Plan Assessment: 47-year-old gentleman with past medical history of alcohol abuse with 2 episodes of alcohol detox, one episode of benzo/alcohol withdrawal seizures, smoker came to the hospital with chief complaint of neck pain for 3 days and also requesting alcohol detox. vitals in the ED with a stable with mildly elevated blood pressure Labs were notable for serum alcohol of 367 on October 24, calcium 8.2, glucose 137 The patient is being treated and evaluated for following conditions #Alcohol detoxification -CIWA max 11 -Ativan per CIWA -Ativan decreased to 1.5 mg q6 -Multivitamin Folic acid Thiamine -Monitor for DTs and withdrawal seizures -Social work consult #History of hypertension Patient has history of essential hypertension and is on metoprolol at home. Overnight the patient's blood pressure was running in high range up to 180/100 patient received 10 mg of labetalol and 25 mg of losartan. Patient is currently passing through alcohol withdrawal and its expected his heart rate and blood pressure to runn at the higher range. -Continue home dose of metoprolol -Lisinopril added 20mg -Continue to monitor #Right-sided neck pain Likely muscular -Tylenol and motrin for pain -Warm compresses -Lidocaine patch #History of benzo/alcohol withdrawal seizures and anxiety -Continue gabapentin 100 mg 3 times a day -Continue Lexapro 30 mg daily -Psychiatric consult #Possible history of COPD on Advair -Continue Advair -TRC #Regular diet DVT ppx Lovenox/ Full code Problem List: 1. Alcohol abuse 2. Alcohol intoxication Pain Ratin Pain Location: none Pain Goal: Pain 4 or less Pain Plan: Continue current plan Tomorrow's Labs & Rationales: None Blanca Castrejon MD 10/27/17 1635: Attending MD Review Statement Attending Statement Attending MD Statement: examined this patient, discuss w/resident/PA/TANK INSULATOR RUBBER, agreed w/resident/PA/TANK INSULATOR RUBBER, reviewed EMR data (avail), discussed with nursing, reviewed images, amended to note Attending Assessment/Plan: Patient seen and examined, overall doing well. CIWA scores are running in acceptable range. Vital signs are stable. Will taper his Ativan to 1.5 g every 6 hours today. Continue the rest of his medications. Patient on Lovenox for DVT prophylaxis.
[2017-10-27 10:00] VITALS: BP 132/84
[2017-10-27 14:00] VITALS: BP 142/72
[2017-10-27 15:15] VITALS: BP 128/80
[2017-10-27 23:43] VITALS: BP 127/81
[2017-10-28 07:29] VITALS: BP 110/72
--- NOTE | 2017-10-28 07:34 | PN- Housestaff ---
Giovanna Aguilar MD,Ami 10/28/17 0734: Subjective Follow-up For: Alcohol withdrawal Neck pain Subjective: Patient visited today, was sleeping in bed comfortably in no acute distress No fever or chills, no shortness of breathing, no chest pain, no other events. Improved neck pain CIWA 0-2 this morning Review of Systems Constitutional: Reports: see HPI. Objective Last 24 Hrs of Vital Signs/I&O Vital Signs Date Time Temp Pulse Resp B/P B/P Pulse O2 O2 Flow FiO2 Mean Ox Delivery Rate 10/28 921 92 126/98 10/28 09 92 126/98 10/28 0729 97.7 77 20 110/72 95 Room Air 10/27 2343 98.1 76 20 127/81 97 Room Air 10/27 1515 98.5 90 18 128/80 95 Room Air 10/27 1400 98.7 94 19 142/72 Intake & Output 10/28 1600 10/28 0800 10/28 0000 Intake Total 200 Output Total 400 Balance -200 Intake, Oral 200 Output, Urine 400 Physical Exam General Appearance: Alert, Oriented X3, Cooperative, No Acute Distress Skin Temp/Moisture Exam: Warm/Dry Sepsis Skin Exam (color): Normal for Ethnicity Cardiovascular: Normal S1, Normal S2 Lungs: Clear to Auscultation, Normal Air Movement Abdomen: Soft, No Tenderness Current Medications: Current Medications Sig/Romeo Start time Last Medication Dose Route Stop Time Status Admin Acetaminophen 650 MG Q6P PRN 10/25 2144 AC 10/28 PO 0728 Budesonide/ 2 PUF BID 10/26 09 AC 10/28 Formoterol Fumarate INH 21 Enoxaparin Sodium 40 MG DAILY 10/26 09 AC 10/28 SC 0921 Escitalopram Oxalate 10 MG 10/25 0800 AC 10/28 PO 0728 Folic Acid 1 MG DAILY 10/25 2145 AC 10/28 PO 0915 Lidocaine 1 PAT DAILY 10/26 1310 AC 10/28 EXT 0921 Lisinopril 20 MG DAILY 10/26 0900 AC 10/28 PO 0920 Lorazepam 1.5 MG Q6 10/27 1800 AC 10/28 PO 10/28 1801 0532 Lorazepam 0 Q1P PRN 10/25 2144 AC 10/26 IV 0532 Lorazepam 2 MG Q6 10/25 0600 DC 10/27 PO 11/01 0600 1142 Metoprolol Succinate 100 MG DAILY 10/26 0900 AC 10/28 PO 0922 Multivitamins 1 TAB DAILY 10/26 0900 AC 10/28 PO 0915 Nicotine 14 MG DAILY 10/26 1310 AC 10/28 TOP 0921 Thiamine HCl 100 MG DAILY 10/25 2145 AC 10/28 PO 0915 Assessment/Plan Assessment: 47-year-old gentleman with past medical history of alcohol abuse with 2 episodes of alcohol detox, one episode of benzo/alcohol withdrawal seizures, smoker came to the hospital with chief complaint of neck pain for 3 days and also requesting alcohol detox. vitals in the ED with a stable with mildly elevated blood pressure Labs were notable for serum alcohol of 367 on October 24, calcium 8.2, glucose 137 The patient is being treated and evaluated for following conditions #Alcohol detoxification -CIWA max 11 -Ativan per CIWA -Ativan decreased to 1.5 mg q6 yesterday - continue to taper ativan -Multivitamin Folic acid Thiamine -Monitor for DTs and withdrawal seizures -Social work consult #History of hypertension Patient has history of essential hypertension and is on metoprolol at home. Overnight the patient's blood pressure was running in high range up to 180/100 patient received 10 mg of labetalol and 25 mg of losartan. Patient is currently passing through alcohol withdrawal and its expected his heart rate and blood pressure to runn at the higher range. -Continue home dose of metoprolol -Lisinopril added 20mg -Continue to monitor #Right-sided neck pain Likely muscular -Tylenol and motrin for pain -Warm compresses -Lidocaine patch #History of benzo/alcohol withdrawal seizures and anxiety -Continue gabapentin 100 mg 3 times a day -Continue Lexapro 30 mg daily -Psychiatric consult #Possible history of COPD on Advair -Continue Advair -TRC #Regular diet DVT ppx Lovenox/ Full code Problem List: 1. Alcohol intoxication Pain Ratin Pain Location: none improve neck pain Pain Goal: Pain 4 or less Pain Plan: Continue current plan Tomorrow's Labs & Rationales: None Blanca Castrejon MD 10/28/17 1340: Attending MD Review Statement Attending Statement Attending MD Statement: examined this patient, discuss w/resident/PA/CHEMICAL DEPENDENCY ATTENDANT, agreed w/resident/PA/CHEMICAL DEPENDENCY ATTENDANT, reviewed EMR data (avail), discussed with nursing, amended to note Attending Assessment/Plan: Patient seen and examined, overall doing well. CIWA scores are running in acceptable range. Vital signs are stable. Will taper his Ativan to 1 mg every 6 hours today. Continue the rest of his medications. Patient on Lovenox for DVT prophylaxis.
[2017-10-28 14:58] VITALS: BP 112/61
[2017-10-28 22:08] VITALS: BP 148/84
[2017-10-29 06:03] VITALS: BP 126/90
--- NOTE | 2017-10-29 07:34 | Discharge Summary ---
Visit Information Visit Dates Admission Date: 10/25/17 Discharge Date: 10/30/17 Hospital Course Course Attending Physician: Mega Bone MD Primary Care Physician: Jorden STOKES,Dk Nelson Hospital Course: The patient is 47-year-old gentleman with past medical history of alcohol abuse with 2 episodes of alcohol detox, one episode of benzo/alcohol withdrawal seizures and essential hypertension. He presented to [facility] ED with chief complaint of neck pain for 3 days and also requesting alcohol detox. Patient suffered a neck strain after moving heavy object at his workplace and he decided to treat his pain with excessive alcohol intake resulting in binge drinking Vitals on presentation stable with mildly elevated blood pressure Admission of showed alcohol level of 367 and U tox positive for methadone CT head showed no acute pathology, worsening mucosal opacification of left maxillary sinus with mild to moderate mucosal thickening in anterior ethmoid air cells. CXR showed mild amount of linear streaky densities in left lower lung possibly atelectasis, no consolidation. The patient was admitted to the general medicine floor for alcohol detoxification. He was started on Ativan standing dose and IV PRN along with thiamine, folate and multivitamin. When his CIWA score ran in lower range, he was tapered off Ativan. Patient ran tachycardic and was hypersensitive during his stay most likely secondary to alcohol withdrawal. Patient has history of essential hypertension and is on metoprolol at home. His blood pressure ran on upto 180/100 prompting 10 mg labetalol one-time dose on presentation. Lisinopril 20 mg was also added to his regimen in addition to metoprolol later discontinued on normalization of blood pressure. He continued to complain of right-sided neck pain during his stay which was most likely muscular. pain control was achieved with Tylenol, Motrin, lidocaine patch and warm compresses. Patient had mild hypocalcemia on presentation 8.2 which resolved by itself on repeat labs the next day He also gives history of tobacco dependence and was maintained on nicotine patch. -Patient was extensively counseled on alcohol abstinence. He has also been provided with an option to follow up with [facility]. He was full code and his home medications of Lexapro, gabapentin, metoprolol and Advair were continued Allergies: Coded Allergies: No Known Allergies (11/09/15) Disposition Summary Disposition Principal Diagnosis: Alcohol detoxification Additional Diagnosis: Essential hypertension Discharge Disposition: home or self care Discharge Instructions General Discharge Information Code Status: Full Code Patient's Diet: Regular Patient's Activity: As tolerated Follow-Up Instructions/Appts: Please follow-up with her primary care doctor after discharge. Medications at Discharge Discharge Medications: Continue taking these medications: Metoprolol Succ XL (Toprol XL) 100 MG TAB.ER.24H 1 Tablet ORAL DAILY Comments: Last Taken: 10/30/17 Time: 0845AM Escitalopram Oxalate (Lexapro) 20 MG TABLET 1 Tablet ORAL Every night Comments: Last Taken: 10/30/17 Time: 0845AM Fluticasone/Salmeterol (Advair 250-50 Diskus) 1 EACH BLST.W.DEV 1 Puff Inhale through mouth DAILY Comments: SYMBICORT GIVEN IN HOSPITAL Last Taken: 10/30/17 Time: 0845AM Gabapentin (Gabapentin) 100 MG CAPSULE 1 Capsule ORAL THREE TIMES DAILY as needed for ANXIETY Comments: NOT GIVEN IN HOSPITAL Gluc 2KCL/Chondr/Cecile Hy/Hy AC (Glucosamine & Chondroitin Cap) 375 MG-300 MG-175 MG-2 MG CAPSULE 1 Tablet ORAL DAILY Comments: NOT GIVEN IN HOSPITAL Cholecalciferol (Vitamin D3) (Vitamin D) 2,000 UNIT CAPSULE 1 Capsule ORAL DAILY Qty = 60 Comments: NOT GIVEN IN HOSPITAL Start taking the following new medications: Multiple Vitamin (Multivitamins) 1 EACH TABLET 1 Tablet ORAL DAILY Qty = 30 No Refills Comments: Last Taken: 10/30/17 Time: 0845AM Lidocaine (Lidocaine) 5 % ADH..PATCH 1 Patch On the skin DAILY Qty = 30 No Refills Comments: Last Taken: 10/30/17 Time: 0845AM Copies To: Jorden STOKES,Dk Nelson Attending MD Review Statement Documenting Attending: Caro Underwood MD Other Findings: Medically stable to be discharged home today.
--- NOTE | 2017-10-29 07:34 | PN- Housestaff ---
See Addendum Subjective Follow-up For: Alcohol detoxification Subjective: Seen and examined. Resting comfortably. He offers no complaint. Had an uneventful night. CIWA running low max 3 patient is currently on 1 mg every 6 Ativan has not had any IV Ativan PRN Review of Systems Constitutional: Reports: see HPI. Objective Last 24 Hrs of Vital Signs/I&O Vital Signs Date Time Temp Pulse Resp B/P B/P Pulse O2 O2 Flow FiO2 Mean Ox Delivery Rate 10/29 0603 98.7 90 20 126/90 95 10/28 2208 98.4 82 20 148/84 98 Room Air 10/28 1458 98.1 75 20 112/61 94 Room Air 10/28 0922 92 126/98 10/28 0920 92 126/98 Physical Exam General Appearance: Alert, Oriented X3, Cooperative Neck: Supple, No JVD, smal systic lesion at back of neck Cardiovascular: Normal S1, Normal S2 Lungs: Clear to Auscultation Abdomen: Normal Bowel Sounds, Soft Neurological: Normal Speech Current Medications: Current Medications Sig/Romeo Start time Last Medication Dose Route Stop Time Status Admin Acetaminophen 650 MG Q6P PRN 10/25 214 AC 10/28 PO 0728 Budesonide/ 2 PUF BID 10/26 09 AC 10/28 Formoterol Fumarate INH 2139 Enoxaparin Sodium 40 MG DAILY 10/26 09 AC 10/28 SC 0921 Escitalopram Oxalate 10 MG 0800 10/25 0800 AC 10/28 PO 0728 Folic Acid 1 MG DAILY 10/25 2145 AC 10/28 PO 0915 Lidocaine 1 PAT DAILY 10/26 1310 AC 10/28 EXT 0921 Lisinopril 20 MG DAILY 10/26 0900 AC 10/28 PO 0920 Lorazepam 1 MG Q6 10/28 2359 AC 10/29 PO 0527 Lorazepam 1 MG Q6 10/28 1800 DC 10/28 PO 10/28 1801 1801 Lorazepam 1.5 MG Q6 10/27 1800 DC 10/28 PO 10/28 1801 1202 Lorazepam 0 Q1P PRN 10/25 2145 AC 10/26 IV 0532 Metoprolol Succinate 100 MG DAILY 10/26 0900 AC 10/28 PO 0922 Multivitamins 1 TAB DAILY 10/26 0900 AC 10/28 PO 0915 Nicotine 14 MG DAILY 10/26 1310 AC 10/28 TOP 0921 Thiamine HCl 100 MG DAILY 10/25 2145 10/28 PO 0915 Assessment/Plan Assessment: 47-year-old gentleman with past medical history of alcohol abuse with 2 episodes of alcohol detox, one episode of benzo/alcohol withdrawal seizures, smoker came to the hospital with chief complaint of neck pain for 3 days and also requesting alcohol detox. The patient is being treated and evaluated for following conditions #Alcohol detoxification -CIWA max 2 -Ativan per CIWA -Ativan decreased to 1 mg BID -Continue to taper ativan -Multivitamin Folic acid Thiamine -Monitor for DTs and withdrawal seizures -Social work consult #History of hypertension Patient has history of essential hypertension and is on metoprolol at home. His blood pressure ran on the higher side likely secondary to alcohol withdrawal on presentation prompting 10 mg labetalol one-time dose. Lisinopril 20 mg was also added to his regimen -Continue home dose of metoprolol -Lisinopril consider discontinuing his blood pressures normalized -Continue to monitor #Right-sided neck pain Likely muscular -Tylenol and motrin for pain -Warm compresses -Lidocaine patch #History of benzo/alcohol withdrawal seizures and anxiety -Continue gabapentin 100 mg 3 times a day -Continue Lexapro 30 mg daily -Psychiatric consult #Possible history of COPD on Advair -Continue Advair -TRC #Regular diet DVT ppx Lovenox/ Full code Problem List: 1. Alcohol intoxication Pain Ratin Pain Location: neck Pain Goal: Pain 4 or less Pain Plan: prn Tomorrow's Labs & Rationales: none
[2017-10-29 14:31] VITALS: BP 120/84
[2017-10-29 22:36] VITALS: BP 124/80
--- NOTE | 2017-10-30 07:17 | PN- Housestaff ---
[place] 10/30/17 0717: Subjective Follow-up For: Alcohol withdrawal Uncontrolled Hypertension Anxiety and depression Subjective: No overnight events. Patient remained afebrile and examined this morning. He denied any chest pain, short of breath, nausea, vomiting, chills, fever, abdominal pain dysuria. He reported having neck pain 2/10 under control with pain medication. He is eating drinking well. Possible discharge today. Patient will follow-up patient to outpatient alcohol detox program. Review of Systems Constitutional: Denies: chills, fever, weakness. EENTM: Reports: no symptoms. Cardiovascular: Denies: chest pain, orthopena, palpitations. Respiratory: Denies: cough, orthopnea, short of breath, sputum production. Gastrointestinal: Denies: abdominal pain, bloating, diarrhea, nausea. Genitourinary: Reports: no symptoms. Musculoskeletal: Reports: see HPI. Neurological/Psychological: Reports: no symptoms. Objective Last 24 Hrs of Vital Signs/I&O Vital Signs Date Time Temp Pulse Resp B/P B/P Pulse O2 O2 Flow FiO2 Mean Ox Delivery Rate 10/29 2236 98.1 93 18 124/80 95 Room Air 10/29 1431 98.4 80 20 120/84 95 Room Air Intake & Output 10/30 0800 10/30 0000 10/29 1600 Intake Total 120 1010 680 Output Total 900 Balance 120 110 680 Intake, IV 10 0 Intake, Oral 120 1000 680 Number 0 1 Bowel Movements Output, Urine 900 Physical Exam General Appearance: Alert, Oriented X3, Cooperative Skin Temp/Moisture Exam: Warm/Dry Sepsis Skin Exam (color): Normal for Ethnicity HEENT: Atraumatic, PERRLA, EOMI Neck: Supple Cardiovascular: Normal S1, Normal S2 Lungs: Clear to Auscultation Abdomen: Soft, No Tenderness Neurological: Normal Speech, Strength at 5/5 X4 Ext, Normal Tone Extremities: No Edema Assessment/Plan Assessment: 47-year-old gentleman with past medical history of alcohol abuse with 2 episodes of alcohol detox, one episode of benzo/alcohol withdrawal seizures, smoker came to the hospital with chief complaint of neck pain for 3 days and also requesting alcohol detox. We are following the patient for following conditions: Alcohol detoxification: -Continue CIWA -Ativan decreased to 0.5 mg BID -Multivitamin Folic acid Thiamine -Patient is stable and being discharged to home today. -Social work consult History of hypertension: -Continue home dose of metoprolol -Lisinopril consider discontinuing his blood pressures normalized -Continue to monitor Right-sided neck pain: Likely muscular -Tylenol and motrin for pain -Warm compresses -Lidocaine patch History of benzo/alcohol withdrawal seizures and anxiety: -Continue gabapentin 100 mg 3 times a day -Continue Lexapro 30 mg daily -Patient will follow up outpatient psychiatric DVT prophylaxis: Mechanical and subcutaneous Lovenox CODE STATUS: Full code Problem List: 1. Alcohol abuse Pain Ratin Pain Location: NECK Pain Goal: Remain pain free Pain Plan: pain pathway Tomorrow's Labs & Rationales: NONE Yasmine STOKES,Caro 10/30/17 1119: Attending MD Review Statement Attending Statement Attending MD Statement: examined this patient, discuss w/resident/PA/EXPERIMENTAL MACHINIST, agreed w/resident/PA/EXPERIMENTAL MACHINIST, reviewed EMR data (avail), discussed with nursing, discussed with case mgmt, amended to note Attending Assessment/Plan: Patient seen and examined. Resting comfortably not in any acute distress. No issues overnight reported by nursing staff. He has not required additional doses of Ativan. hE is alert and oriented 3 and conversant appropriately. Reports that mechanical back pain and improving. He is medically stable to be discharged home today. He is willing to follow-up with the [facility] as an outpatient. Also instructed him to follow-up with his primary care provider next week to ensure that his musculoskeletal symptoms continue to improve. If not he may require imaging at that time.
[2017-10-30 07:22] VITALS: BP 127/89
[2017-10-30 08:43] VITALS: BP 127/89
[2017-10-30] MEDS ORDERED: LIDOCAINE1 EACH TOP (10:06)
== END 2017-10-30 10:48 | DRG 772 ==
LOC: ERH 19:37 → ERHI 10-25 18:45 → 2NB 10-25 18:45 → ENRESERV 10-25 20:54 → ENTRNSPT 10-25 21:58 → EDTRNSPTSTS 10-25 22:07 → 2NB 10-25 22:15 → CMPTRNSPT 10-25 22:21 → 2NB 10-26 07:51 → ENPENDDIS 10-30 10:11 → 2NB 10-30 10:48
PROVIDERS: Internal Medicine; Physician Assistant Medical
PROC: HZ2ZZZZ Detoxification Services for Substance Abuse Treatment (ICD-10-PCS; principal; 2017-10-30)
PROC: HZ89ZZZ Medication Management for Substance Abuse Treatment, Other Replacement Medication (ICD-10-PCS; principal; 2017-10-30)
PROC: HZ99ZZZ Pharmacotherapy for Substance Abuse Treatment, Other Replacement Medication (ICD-10-PCS; principal; 2017-10-30)
DX: F10.239 Alcohol dependence with withdrawal, unspecified (principal); F10.229 Alcohol dependence with intoxication, unspecified; Y90.8 Blood alcohol level of 240 mg/100 ml or more; I10 Essential (primary) hypertension; Z72.0 Tobacco use; E83.51 Hypocalcemia; F41.9 Anxiety disorder, unspecified; S13.9XXA Sprain of joints and ligaments of unspecified parts of neck, initial encounter; X50.0XXA Overexertion from strenuous movement or load, initial encounter; J44.9 Chronic obstructive pulmonary disease, unspecified; F32.9 Major depressive disorder, single episode, unspecified
CPT/HCPCS: 2NSBP; 36592; 71045; 80307; 82436; 93005; 93010; 99232; G0480; J0610; J1650; J3490; J7508

== ENCOUNTER 2017-11-22 18:59 | Inpatient (IN) | payer OTHER ==
[~2017-11-22] VITALS: Ht 170.2 cm; Wt 83.9 kg
[~2017-11-22 18:59] MED LIST changes: +GABAPENTIN100 M2 PO; +LIDOCAINE1 EACH TOP; +MULTIVITAMINS1 EAC9 PO; +VITAMIN D2000 UNIT PO
--- NOTE | 2017-11-22 19:47 | ED GENERAL ADULT ---
See Addendum History of Present Illness General Chief Complaint: Dyspnea (COPD, CHF, Other) Stated Complaint: SHORT OF BREATH Source: patient, family, old records Exam Limitations: intoxication Vital Signs & Intake/Output Vital Signs & Intake/Output Vital Signs Date Time Temp Pulse Resp B/P B/P Pulse O2 O2 Flow FiO2 Mean Ox Delivery Rate 11/23 1210 98.4 82 20 140/106 11/23 1210 98.4 82 20 140/106 94 Room Air 11/23 0834 154/111 11/23 0834 154/111 11/23 0736 98.7 79 18 139/88 11/23 0735 98.7 79 18 199/88 99 Room Air 11/23 0510 98.4 81 18 123/87 11/23 0510 98.4 81 18 123/87 94 Room Air 11/23 0243 69 18 114/69 11/23 0243 69 18 114/69 94 Room Air 11/23 0032 76 16 129/61 95 Room Air 11/22 2246 70 18 118/53 94 Room Air 11/22 2127 96.8 77 16 142/99 11/22 2108 97 11/22 1905 96.8 77 16 142/99 95 Room Air ED Intake and Output 11/23 0000 11/22 1200 Intake Total 0 Output Total Balance 0 Intake, Oral 0 Patient 185 lb Weight Weight Reported by Patient Measurement Method Allergies Coded Allergies: No Known Allergies (11/09/15) Reconcile Medications Cholecalciferol (Vitamin D3) (Vitamin D) 2,000 UNIT CAPSULE 1 CAP PO DAILY SUPPLEMENT (Reported) Escitalopram Oxalate (Lexapro) 20 MG TABLET 1 TAB PO QPM ANXIETY (Reported) Fluticasone/Salmeterol (Advair 250-50 Diskus) 1 EACH BLST.W.DEV 1 PUF INH DAILY RESP. (Reported) Gabapentin 100 MG CAPSULE 1 CAP PO TID PRN ANXIETY (Reported) Gluc 2KCL/Chondr/Cecile Hy/Hy AC (Glucosamine & Chondroitin Cap) 375 MG-300 MG-175 MG-2 MG CAPSULE 1 TAB PO DAILY SUPPLEMENT (Reported) Lidocaine 5 % ADH..PATCH 1 PAT TOP DAILY Back pain Metoprolol Succ XL (Toprol XL) 100 MG TAB.ER.24H 1 TAB PO DAILY BP (Reported) Multiple Vitamin (Multivitamins) 1 EACH TABLET 1 TAB PO DAILY Supplement Triage Note: 47 Y/O MALE BROUGHT IN BY MOTHER FOR EVAL OF SOB. MOTHER STATES "HE TOLD ME HE COULDN'T BREATH SO I WOULD TAKE HIM TO THE HOSPITAL BUT HE DRANK A PINT OF VODKA TODAY AND HE DIDNT GO TO WORK AND IS GOING TO BE FIRED". PT STATES HE IS INTERESTED IN DETOX HOWEVER MOTHER COMMENTS HE HAD APPOINTMENT FOR OUTPATIENT DETOX RESOURCES AND "HE NEVER SHOWED". PT ONLY C/O R NECK PAIN. FALLS ASLEEP WHEN NOT ADDRESSED IN TRIAGE. Triage Nurses Notes Reviewed? yes Onset: 2 weeks Duration: week(s):, constant, continues in ED Timing: recent history Injury Environment: home Severity: severe No Modifying Factors: none HPI: Presents with mother after binge drinking for the last 2 weeks complaining of neck pain radiating to his arms and body percent on the left. He requests detox for alcohol. His last drink was 2 hours prior to admission with history of withdrawal seizures and DTs. His mother reports he complained of being short of breath prior to admission. There's been no fever chills nausea vomiting diarrhea abdominal pain chest pain headache dysuria rash bleeding. (Main Carr MD) Past History Travel History Traveled to [place] past 21 day No Medical History Any Pertinent Medical History? see below for history Neurological: NONE EENT: NONE Cardiovascular: hypertension Respiratory: NONE Gastrointestinal: NONE Hepatic: NONE Renal: NONE Musculoskeletal: NONE Psychiatric: anxiety, Alcohol use disorder Endocrine: NONE Blood Disorders: NONE Cancer(s): NONE BACK END ARCHITECT/Reproductive: NONE History of MRSA: No History of VRE: No History of CDIFF: No Influenza Vaccine: 07/18/17 Tetanus Vaccine: 11/09/15 Surgical History Surgical History: non-contributory, N Psychosocial History Who do you live with Mother Services at Home None What is your primary language Nepali Tobacco Use: Current Daily Use Daily Tobacco Use Amount/Type: => 5 Cigarettes daily Family History Hx Contributory? No (Main Carr MD) Review of Systems Review of Systems Constitutional: Reports: see HPI, malaise. EENTM: Reports: no symptoms. Respiratory: Reports: see HPI, short of breath. Cardiovascular: Reports: no symptoms. GI: Reports: no symptoms. Genitourinary: Reports: no symptoms. Musculoskeletal: Reports: see HPI, neck pain. Skin: Reports: no symptoms. Neurological/Psychological: Reports: see HPI, paresthesia. Hematologic/Endocrine: Reports: no symptoms. Immunologic/Allergic: Reports: no symptoms. All Other Systems: Reviewed and Negative (Main Carr MD) Physical Exam Physical Exam General Appearance: well developed/nourished, alert, awake, anxious, mild distress Head: atraumatic, normal appearance Eyes: Bilateral: normal appearance, PERRL, EOMI. Ears, Nose, Throat: normal pharynx, normal ENT inspection, hearing grossly normal Neck: normal inspection, supple, full range of motion, tender lateral, no midline tenderness Respiratory: chest non-tender, no respiratory distress, quiet respiration, decreased breath sounds, wheezing Cardiovascular: regular rate/rhythm, normal peripheral pulses, norml femoral pulses equa Peripheral Pulses: 4+ carotid (R), 4+ carotid (L) Gastrointestinal: normal bowel sounds, soft, non-tender, no organomegaly Back: normal inspection, normal range of motion Extremities: normal inspection, normal capillary refill, normal range of motion, no edema Neurologic/Psych: no motor/sensory deficits, awake, alert, oriented x 3, normal gait, normal mood/affect, supervisor in circuit testing II-XII nml as tested Reflexes: 2+: bicep (R), bicep (L). Skin: intact, normal color, warm/dry Lymphatic: no anterior cervical brie Core Measures ACS in differential dx? No CVA/TIA Diagnosis: No Sepsis Present: No Sepsis Focused Exam Completed? No (Main Carr MD) Progress Differential Diagnoses I considered the following diagnoses in my evaluation of the patient: Cervical radiculopathy alcohol dependence COPD Plan of Care: Orders Procedure Date/time Status Regular Diet 11/23 B Active Patient Safety Monitor 11/23 0335 Active Patient Safety Monitor 11/22 2335 Active URINE DRUG SCREEN FOR ER ONLY 11/22 1944 Complete OXYGEN SETUP (GEN) 11/23 1939 Active Saline Lock 11/[address] in observation 11/23 1939 Active Patient Data 11/23 1939 Active Vital Signs 11/23 1939 Active Patient Safety Monitor 11/23 1939 Active CIWA 11/23 1939 Active Activity/Ambulation 11/23 1939 Active MAGNESIUM 11/23 1939 Complete ETHANOL 11/23 1939 Complete COMPREHENSIVE METABOLIC PANEL 11/23 1939 Complete CBC WITHOUT DIFFERENTIAL 11/23 1939 Complete CASE MANAGEMENT CONSULT 11/23 1939 Active Code Status 11/23 1939 Active Intake & Output 11/22 1918 Active Current Medications Sig/Romeo Start time Last Medication Dose Stop Time Status Admin Metoprolol Succinate 100 MG DAILY 11/23 0900 AC 11/23 (Toprol Xl) 0834 Gabapentin 300 MG Q8 11/22 2200 AC 11/23 (Neurontin) 0508 Clonidine 0.1 MG TID 11/22 2100 AC 11/23 (Catapres) 0834 Escitalopram Oxalate 20 MG QPM 11/22 2099 AC 11/22 (Lexapro) 2126 Ibuprofen 600 MG 4 TIMES/DAY PRN 11/22 1944 AC (Motrin) Lidocaine 1 PAT DAILY 11/22 193 AC 11/23 (Lidoderm) 0834 Laboratory Tests 11/22/172037: Urine Opiates Screen < 100, Methadone Screen 47, Barbiturate Screen < 60, Ur Phencyclidine Scrn < 6.00, Amphetamines Screen < 100, U Benzodiazepines Scrn < 85, Urine Cocaine Screen < 50, Urine Cannabis Screen < 5.00 11/22/172001: Anion Gap 15, Estimated GFR > 60, BUN/Creatinine Ratio 18.8, Glucose 142 H, Calcium 8.9, Magnesium 1.7, Total Bilirubin 0.5, AST 76 H, ALT 72, Alkaline Phosphatase 71, Total Protein 6.7, Albumin 4.2, Globulin 2.5, Albumin/Globulin Ratio 1.7, CBC w Diff NO MAN DIFF REQ, RBC 5.04, MCV 92.3, MCH 32.1 H, MCHC 34.8, RDW 14.0, MPV 7.2 L, Gran % 56.9, Lymphocytes % 28.7, Monocytes % 13.2 H , Eosinophils % 0.5, Basophils % 0.7, Absolute Granulocytes 4.2, Absolute Lymphocytes 2.1, Absolute Monocytes 1.0 H, Absolute Eosinophils 0, Absolute Basophils 0.1, Serum Alcohol 365.0 Diagnostic Imaging: Viewed by Me: Radiology Read. Discussed w/RAD: Radiology Read. Radiology Impression: Mild degenerative changes of cervical spine. Degenerative disc height narrowing at C3-C4 and C4-C5. No change since the CT study of 2016. Initial ED EKG: none Hand-Off Endorsed To: Ambrosio Maciel DO Endorsed Time: 0700 Pending: other (CLIFFORD, case mgmt) (Lilly STOKESMain) Departure Departure Disposition: STILL A PATIENT Condition: Stable Clinical Impression Primary Impression: Alcohol dependency Secondary Impressions: Bronchospasm, acute, Cervical radiculopathy Referrals: Jorden STOKES,Dk Nelson (PCP/Family) Departure Forms: Customer Survey General Discharge Information (Main Carr MD) Departure Comments 11/23/17 The patient was signed out to me by Dr. Carr , he is pending approval for inpatient alcohol detox by case management. (Ambrosio Maciel DO) Critical Care Note Critical Care Note Critical Care Time: 30-74 min (35) (Main Carr MD) ED Attending Observation Initial Observation Note: I have seen and personally examined BOO MCCARTY on 11/22/17 at 2055. I agree with the current emergency department documentation. The disposition (admission or discharge) is uncertain at this time, he needs a period of observation for the following reason(s): alcohol intoxication deleirum, neck pain, bronchospasm The ED Nurse caring for this patient has been personally informed as to what the patient is being observed for. (Main Carr MD)
[2017-11-22 20:16] LABS: ABSOLUTE BASOPHIL COUNT 0.1 /CUMM (0.0-0.2); ABSOLUTE EOSINOPHIL COUNT 0 /CUMM (0.0-0.7); ABSOLUTE GRANULOCYTE CT 4.2 /CUMM (1.4-6.5); ABSOLUTE LYMPH COUNT 2.1 /CUMM (1.2-3.4); BASOPHIL % 0.7 % (0.0-2.0); EOSINOPHIL % 0.5 % (0-5); GRANULOCYTE % 56.9 % (42.2-75.2); HEMATOCRIT 46.5 % (42-52); MEAN CORPUSCULAR HGB 32.1 PG (27.0-31.0); MEAN CORPUSCULAR HGB CONC 34.8 G/DL (33.0-37.0); MEAN CORPUSCULAR VOLUME 92.3 FL (80.0-94.0); MEAN PLATELET VOLUME 7.2 FL (7.4-10.4); PLATELET COUNT 289 /CUMM (130-400); RED BLOOD CELL CT 5.04 /CUMM (4.70-6.10); WHITE BLOOD CELL COUNT 7.4 /CUMM (4.8-10.8)
--- NOTE | 2017-11-22 20:53 | RADIOLOGY REPORT ---
EXAMINATION: XR CERVICAL SPINE CLINICAL INFORMATION: Right neck pain. Tingling in fingers. No trauma. COMPARISON: CT cervical spine 06/04/2017 TECHNIQUE: Lateral. AP. Odontoid. Swimmer's. FINDINGS: Cervical disc height narrowing at C3-C4 with small endplate spurs of the vertebrae. There is mild disc height narrowing C4-C5 without significant spur. The remainder of the cervical disc heights are normal. The facet joints are normal. Compared to the prior CAT scan there is been no substantial change. IMPRESSION: Mild degenerative changes of cervical spine. Degenerative disc height narrowing at C3-C4 and C4-C5. No change since the CT study of 06/04/2017.
[2017-11-23] VITALS (7 sets, daily range): BP systolic 114–150; BP diastolic 69–106
--- NOTE | 2017-11-23 14:29 | History & Physical ---
Toshia Granado 11/23/17 1429: General Information and HPI History of Present Illness: Mr. Eddy is a 47-year-old M, current smoker (1/2 PPD x 20 yrs) with past medical history of alcohol use disorder, one episode of benzo/alcohol withdrawal seizures and HTN who presents to the ED with neck pain and alcohol intoxication. Patient reports he has been binge drinking for the past 2 weeks due to neck pain that radiates to his shoulders. He also reports intermittent palpitations, dry heaving, gait instability and "blackouts" after drinking. His last drink was a few hours ago, a pint of vodka. As per records patient did not go to work today due to intoxication. He has been treated at an [facility] at least 3 times. His psychiatrist recently changed his Librium to gabapentin. He denies fever, chills, jerky movements, SI/HI, hallucinations. In the ED he was hypertensive, he was given IV lorazepam 5 mg clonidine 0.1 mg, metoprolol 100 mg and gabapentin 300 mg Allergies/Medications Allergies: Coded Allergies: No Known Allergies (11/09/15) Past History Travel History Traveled to [place] past 21 day No Medical History Neurological: NONE EENT: NONE Cardiovascular: hypertension Respiratory: NONE Gastrointestinal: NONE Hepatic: NONE Renal: NONE Musculoskeletal: NONE Psychiatric: anxiety, Alcohol use disorder Endocrine: NONE Blood Disorders: NONE Cancer(s): NONE MASON TENDER/Reproductive: NONE History of MRSA: No History of VRE: No History of CDIFF: No Isolation History: Standard Influenza Vaccine: 07/18/17 Tetanus Vaccine: 11/09/15 Surgical History Surgical History: non-contributory, N Past Family/Social History Psychosocial History Services at Home: None Smoking Status: Never Smoked Review of Systems Review of Systems Constitutional: Reports: see HPI. Exam & Diagnostic Data Last 24 Hrs of Vital Signs/I&O Vital Signs Date Time Temp Pulse Resp B/P B/P Pulse O2 O2 Flow FiO2 Mean Ox Delivery Rate 11/23 1423 82 140/106 11/23 1210 98.4 82 20 140/106 11/23 1210 98.4 82 20 140/106 94 Room Air 11/23 0834 154/111 11/23 0834 154/111 11/23 0736 98.7 79 18 139/88 11/23 0735 98.7 79 18 199/88 99 Room Air 11/23 0510 98.4 81 18 123/87 11/23 0510 98.4 81 18 123/87 94 Room Air 11/23 0243 69 18 114/69 11/23 0243 69 18 114/69 94 Room Air 11/23 0032 76 16 129/61 95 Room Air 11/22 2246 70 18 118/53 94 Room Air 11/22 2127 96.8 77 16 142/99 11/22 2108 97 11/22 1905 96.8 77 16 142/99 95 Room Air Intake & Output 11/23 1600 11/23 0800 11/23 0000 Intake Total 0 Output Total Balance 0 Intake, Oral 0 Patient 185 lb Weight Weight Reported by Patient Measurement Method Physical Exam General Appearance Alert, Oriented X3, Cooperative, No Acute Distress HEENT Atraumatic, PERRLA, EOMI, Mucous Membr. moist/pink Cardiovascular Regular Rate, Normal S1, Normal S2, No Murmurs Lungs RUL/RLL wheezing Abdomen RUQ tenderness Extremities BL tremors Last 24 Hrs of Labs/Mayco: Laboratory Tests 11/22/172037: Urine Opiates Screen < 100, Methadone Screen 47, Barbiturate Screen < 60, Ur Phencyclidine Scrn < 6.00, Amphetamines Screen < 100, U Benzodiazepines Scrn < 85, Urine Cocaine Screen < 50, Urine Cannabis Screen < 5.00 11/22/172001: Anion Gap 15, Estimated GFR > 60, BUN/Creatinine Ratio 18.8, Glucose 142 H, Calcium 8.9, Magnesium 1.7, Total Bilirubin 0.5, AST 76 H, ALT 72, Alkaline Phosphatase 71, Total Protein 6.7, Albumin 4.2, Globulin 2.5, Albumin/Globulin Ratio 1.7, CBC w Diff NO MAN DIFF REQ, RBC 5.04, MCV 92.3, MCH 32.1 H, MCHC 34.8, RDW 14.0, MPV 7.2 L, Gran % 56.9, Lymphocytes % 28.7, Monocytes % 13.2 H , Eosinophils % 0.5, Basophils % 0.7, Absolute Granulocytes 4.2, Absolute Lymphocytes 2.1, Absolute Monocytes 1.0 H, Absolute Eosinophils 0, Absolute Basophils 0.1, Serum Alcohol 365.0 Diagnostic Data Other Results 11/22/17-1943 EXAM TYPE: RAD - XRY-CERV SPINE 4 OR 5 VIEWS FINDINGS: Cervical disc height narrowing at C3-C4 with small endplate spurs of the vertebrae. There is mild disc height narrowing C4-C5 without significant spur. The remainder of the cervical disc heights are normal. The facet joints are normal. Compared to the prior CAT scan there is been no substantial change. IMPRESSION: Mild degenerative changes of cervical spine. Degenerative disc height narrowing at C3-C4 and C4-C5. No change since the CT study of 06/04/2017. Assessment/Plan Assessment: Mr. Eddy is a 47-year-old gentleman with past medical history of alcohol abuse with 2 episodes of alcohol detox, one episode of benzo/alcohol withdrawal seizures and HTN who presents to the ED with alcohol withdrawal. Problem list: #Alcohol use disorder/withdrawal #Transaminitis - most likely 2/2 alcohol Plan: Admit to general med for further evaluation and management Ativan per CIAR protocol Scheduled Ativan 2 mg q6h MVI, thiamine, folate supplement Nicotine patch Resume home meds: Gabapentin, Escitalopram, and Metoprolol Psych consult Social work consult Diet: Regular DVT ppx: sc Lovenox Code: Full As Ranked By This Provider Problem List: 1. Alcohol intoxication 2. Alcohol dependency 3. Alcohol abuse Core Measures/Misc (03/25) Acute Coronary Syndrome ACS Diagnosis: No Congestive Heart Failure Congestive Heart Failure Diagnosis No Cerebrovascular Accident CVA/TIA Diagnosis: No VTE (View Protocol) VTE Risk Factors Age>40 No Mechanical VTE Prophylaxis d/t N/A MechProphylax Ordered No VTE Pharm Prophylaxis d/t NA PharmProphylax ordered Sepsis (View protocol) Sepsis Present: No Ilia Lance MD 11/23/17 0853: General Information and HPI Allergies/Medications Home Med list Cholecalciferol (Vitamin D3) (Vitamin D) 2,000 UNIT CAPSULE 1 CAP PO DAILY SUPPLEMENT (Reported) Clonidine HCl (Catapres) 0.1 MG TABLET 0.1 MG PO TID blodd pressure Cyclobenzaprine HCl 5 MG TABLET 5 MG PO BID PRN neck pain . Escitalopram Oxalate (Lexapro) 20 MG TABLET 1 TAB PO QPM ANXIETY (Reported) Fluticasone/Salmeterol (Advair 250-50 Diskus) 1 EACH BLST.W.DEV 1 PUF INH DAILY RESP. (Reported) Folic Acid 1 MG TABLET 1 MG PO DAILY vitamin supplement . Gabapentin 100 MG CAPSULE 1 CAP PO TID PRN ANXIETY (Reported) Gluc 2KCL/Chondr/Cecile Hy/Hy AC (Glucosamine & Chondroitin Cap) 375 MG-300 MG-175 MG-2 MG CAPSULE 1 TAB PO DAILY SUPPLEMENT (Reported) Lidocaine 5 % ADH..PATCH 1 PAT TOP DAILY Back pain Metoprolol Succ XL (Toprol XL) 100 MG TAB.ER.24H 1 TAB PO DAILY BP (Reported) Multiple Vitamin (Multivitamins) 1 EACH TABLET 1 TAB PO DAILY Supplement Nicotine (Nicotine Patch) 14 MG/24 HOUR PATCH.TD24 14 MG TOP DAILY SMOKING CESSATION . Omeprazole 20 MG CAPSULE.DR 40 MG PO DAILY AC ACID REFLUX . Thiamine HCl (Vitamin B-1) 50 MG TABLET 50 MG PO DAILY vitamin supplement . Resident Review Statement Resident Statement: examined this patient, discussed with commissioner of internal revenue, agreed with commissioner of internal revenue Other Findings: Patient is a 47-year-old male, chronic smoker(1/2 PPD x 20 yrs) with past medical history of alcohol use disorder and failed 3 episodes of alcohol detox( [facility] essential hypertension, history of chronic neck pain, brought in by mother for evaluation of shortness of breath. According to the mother he was not able to breath. According to the ED document the mother told that he drank 1 pint of vodka yesterday and is not working. He never followed his appointment for outpatient detox. During the examination he reports that he was having pain in the neck which was radiating to his right shoulder. He was feeling intermittent palpitation, dry heaving, nausea, tremors , feel probably while he walks, episodes of blackouts after drinking. He denies any SI/HI, hallucination. He is Vital signs at time of admission -temperature 96.8, pulse 77, respiratory rate 16, blood pressure 142/99, SPO2 95% on room air. On examination -patient was conscious, cooperative, tremors positive on extremities, lungs bilaterally wheezing, abdomen soft, bowel sounds positive, heart S1-S2 normal, extremity -no edema, no ecchymotic patches. Blood workup showed -WBC 7.4, hemoglobin 16.2, platelet count 29, granulocyte 56.9, monocytes 13.2, eosinophils 0.5, sodium 143, potassium 4.7, chloride 97, carbondi oxide 31, anion gap 15, BUN 15, creatinine 0.8, glucose 142, calcium 8.9, magnesium 1.57, total bilirubin 0.5, AST 76, ALT 72, alkaline phosphatase 71, total protein 6.7, U tox was negative, serum alcohol level was 365. Cervical spine CT scan -mild degenerative changes of the cervical spine, degenerative disc height narrowing at C3/C4, C4/C5. Patient was given lidocaine patch, ibuprofen, citalopram, clonidine, gabapentin, metoprolol. Assessment and plan - Alcohol use disorder - * We will admit the patient to general medicine floor * Ativan according to CIWA score * Tablet Ativan 2 mg every 6 * IV fluids -banana bag * Multivitamins * watch for withdrawal symptoms * Psych consult * Social work consult Neck pain -nonspecific possibly secondary to degenerative changes * Pain medication according to the pain scale Mild transaminitis -secondary to alcohol * We will follow the LFT chronic smoker * Nicotine patch daily * Smoking cessation counseling is done Diet -regular diet CODE STATUS-full code DVT prophylaxis -ALP s
[2017-11-24] VITALS: BP 150/90
[2017-11-24 06:20] VITALS: BP 154/90
--- NOTE | 2017-11-24 07:43 | PN- Housestaff ---
See Addendum Subjective Follow-up For: #Alcohol use disorder/withdrawal #Transaminitis - most likely 2/2 alcohol Subjective: Patient offers no complaints or acute events overnight Review of Systems Constitutional: Reports: see HPI. Objective Last 24 Hrs of Vital Signs/I&O Vital Signs Date Time Temp Pulse Resp B/P B/P Pulse O2 O2 Flow FiO2 Mean Ox Delivery Rate 11/24 0620 98.1 88 20 154/90 92 Room Air 11/24 0000 Room Air 11/24 0000 98.6 99 20 150/90 11/23 2201 98.6 99 20 150/90 93 11/23 2112 90 152/88 11/23 1718 98.3 90 18 150/80 93 Room Air 11/23 1705 Room Air 11/23 1643 98.6 76 18 146/88 11/23 1642 98.6 76 18 146/88 94 Room Air 11/23 1423 82 140/106 11/23 1210 98.4 82 20 140/106 11/23 1210 98.4 82 20 140/106 94 Room Air 11/23 0834 154/111 11/23 0834 154/111 Intake & Output 11/24 0800 11/24 0000 11/23 1600 Intake Total 480 1550 Output Total 250 Balance 480 1300 Intake, IV 750 Intake, Oral 480 800 Output, Urine 250 Patient 185 lb Weight Weight Reported by Patient Measurement Method Physical Exam General Appearance: Alert, Oriented X3, Cooperative, No Acute Distress Cardiovascular: Regular Rate, Normal S1, Normal S2 Lungs: Clear to Auscultation, Normal Air Movement Abdomen: Normal Bowel Sounds, Soft, No Tenderness Current Medications: Current Medications Sig/Romeo Start time Last Medication Dose Route Stop Time Status Admin Albuterol Sulfate 2 PUF Q4 11/23 1800 AC 11/23 INH 2111 Budesonide/ 2 PUF BID 11/23 2100 AC 11/23 Formoterol Fumarate INH 2111 Cholecalciferol 2,000 IU DAILY 11/23 1739 AC 11/23 PO 2111 Clonidine 0.1 MG TID 11/22 2100 AC 11/23 PO 2111 Cyanocobalamin/ 1 BAG 1500 11/24 1500 AC Thiamine/Pyridoxine IV 11/25 2259 Sodium Chloride 1,000 ML Cyanocobalamin/ 1 BAG DAILY 11/23 1426 CAN Thiamine/Pyridoxine IV 11/25 1659 Dextrose/Water 1,000 ML Cyanocobalamin/ 1 BAG DAILY 11/23 1426 DC 11/23 Thiamine/Pyridoxine IV 11/25 1659 1506 Sodium Chloride 1,000 ML Escitalopram Oxalate 20 MG QPM 11/22 2100 AC 11/23 PO 2112 Folic Acid 1 MG DAILY 11/23 1426 CAN PO 11/25 0901 Gabapentin 100 MG TID PRN 11/23 1745 AC PO Gabapentin 300 MG Q8 11/22 2200 DC 11/23 PO 1423 Ibuprofen 600 MG .STK-MED ONE 11/23 2118 DC PO 11/23 2119 Ibuprofen 600 MG 4 TIMES/DAY PRN 11/22 1945 AC 11/23 PO 2141 Lidocaine 1 PAT DAILY 11/22 1939 AC 11/23 EXT 0834 Lorazepam 0.5 MG ONCE 11/28 0000 DC IV 11/28 0001 Lorazepam 0.5 MG Q6 11/27 0600 DC IV 11/28 0000 Lorazepam 0.5 MG ONCE ONE 11/26 1800 DC IV 11/26 1801 Lorazepam 1 MG Q6H 11/26 0000 DC IV 11/26 1201 Lorazepam 1.5 MG Q12H 11/25 0600 DC IV 11/25 1801 Lorazepam 1 MG Q12H 11/25 0000 DC IV 11/25 1201 Lorazepam 2 MG ONCE ONE 11/24 1800 DC IV 11/24 1801 Lorazepam 1.5 MG Q6H 11/24 0000 DC IV 11/24 1201 Lorazepam 0 Q1P PRN 11/23 1815 AC 11/23 IV 2145 Lorazepam 2 MG Q6 11/23 1800 DC 11/23 IV 11/23 1801 1723 Lorazepam 2 MG Q6 11/23 1800 AC 11/24 PO 0552 Lorazepam 1 MG Q4P PRN 11/23 1800 DC IV Lorazepam 2 MG STAT STA 11/23 1454 DC 11/23 IV 11/23 1455 1455 Lorazepam 0 .STK-MED ONE 11/23 1448 CAN .ROUTE Lorazepam 2 MG ONCE 11/23 1430 DC IV 11/23 1431 Lorazepam 0 .STK-MED ONE 11/23 0808 DC PO Lorazepam 1 MG ONE ONE 11/23 0800 DC 11/23 PO 11/23 0801 0802 Metoprolol Succinate 100 MG DAILY 11/23 0900 AC 11/23 PO 0834 Multivitamins 1 TAB DAILY 11/23 1426 CAN PO Multivitamins 1 TAB DAILY 11/23 1739 AC 11/23 Therapeutic PO 2111 Nicotine 14 MG DAILY 11/23 1934 AC 11/23 TOP 211 Thiamine HCl 100 MG DAILY 11/23 1426 CAN PO 11/25 0901 Assessment/Plan Assessment: Mr. Eddy is a 47-year-old gentleman with past medical history of alcohol abuse with 2 episodes of alcohol detox, one episode of benzo/alcohol withdrawal seizures and HTN who presents to the ED with alcohol withdrawal. Problem list: #Alcohol use disorder/withdrawal #Mild Transaminitis - most likely 2/2 alcohol Plan: Continue Ativan per CIWA protocol Continue Scheduled Ativan 2 mg q6h Continue MVI, thiamine, folate supplement Continue Nicotine patch Continue Gabapentin, Escitalopram, and Metoprolol Appreciate Psych recommendations Diet: Regular DVT ppx: sc Lovenox Code: Full Problem List: 1. Alcohol intoxication 2. Alcohol dependency Pain Ratin Pain Location: NA Pain Goal: Remain pain free Pain Plan: NA Tomorrow's Labs & Rationales: CBC,BEP
[2017-11-24 08:48] LABS: ABSOLUTE BASOPHIL COUNT 0 /CUMM (0.0-0.2); ABSOLUTE EOSINOPHIL COUNT 0.1 /CUMM (0.0-0.7); ABSOLUTE GRANULOCYTE CT 2.4 /CUMM (1.4-6.5); ABSOLUTE LYMPH COUNT 1.8 /CUMM (1.2-3.4); ABSOLUTE MONOCYTE COUNT 0.5 /CUMM (0.10-0.60); BASOPHIL % 0.5 % (0.0-2.0); EOSINOPHIL % 1.8 % (0-5); GRANULOCYTE % 49.9 % (42.2-75.2); MEAN CORPUSCULAR HGB 32.1 PG (27.0-31.0); MEAN CORPUSCULAR HGB CONC 34.3 G/DL (33.0-37.0); MEAN CORPUSCULAR VOLUME 93.7 FL (80.0-94.0); MEAN PLATELET VOLUME 8.3 FL (7.4-10.4); PLATELET COUNT 149 /CUMM (130-400); RBC DISTRIBUTION WIDTH 14.1 % (11.5-14.5); RED BLOOD CELL CT 4.37 /CUMM (4.70-6.10); WHITE BLOOD CELL COUNT 4.9 /CUMM (4.8-10.8)
[2017-11-24 11:06] LABS: HEMATOCRIT 40.9 % (42-52)
[2017-11-24 12:00] VITALS: BP 156/104
[2017-11-24 14:56] VITALS: BP 124/84
[2017-11-24 22:38] VITALS: BP 140/90
[2017-11-25 01:42] VITALS: BP 142/94
[2017-11-25 06:57] VITALS: BP 142/96
--- NOTE | 2017-11-25 08:17 | PN- Housestaff ---
See Addendum Subjective Follow-up For: #Alcohol use disorder/withdrawal #Transaminitis - resolved Subjective: Patient seen and examined at bedside. No overnight events. Denies suicidal ideation, hallucination, nausea, vomiting, abdominal pain. Review of Systems Constitutional: Reports: no symptoms, see HPI. Objective Last 24 Hrs of Vital Signs/I&O Vital Signs Date Time Temp Pulse Resp B/P B/P Pulse O2 O2 Flow FiO2 Mean Ox Delivery Rate 11/25 0657 99.1 90 18 142/96 95 Room Air 11/25 0142 98.8 72 16 142/94 92 Room Air 11/24 2238 98.8 78 18 140/90 97 Room Air 11/24 2024 80 124/84 11/24 1456 124/84 11/24 1200 98.2 80 20 156/104 96 Room Air Intake & Output 11/25 1600 11/25 0800 11/25 0000 Intake Total 500 900 Output Total 600 Balance -100 900 Intake, IV 600 Intake, Oral 500 300 Output, Urine 600 Physical Exam General Appearance: Alert, Oriented X3, Cooperative, No Acute Distress Cardiovascular: Regular Rate, Normal S1, Normal S2, No Murmurs Lungs: Clear to Auscultation Abdomen: Soft, No Tenderness, No Hepatospenomegaly Neurological: Normal Speech, Strength at 5/5 X4 Ext, Normal Tone, Sensation Intact Current Medications: Current Medications Sig/Romeo Start time Last Medication Dose Route Stop Time Status Admin Albuterol Sulfate 2 PUF Q4 11/23 1800 AC 11/25 INH 1022 Budesonide/ 2 PUF BID 11/23 2100 AC 11/25 Formoterol Fumarate INH 1022 Cholecalciferol 2,000 IU DAILY 11/23 1739 AC 11/25 PO 1019 Clonidine 0.1 MG TID 11/22 2100 AC 11/25 PO 1020 Cyanocobalamin/ 1 BAG 1500 11/24 1500 DC 11/24 Thiamine/Pyridoxine IV 11/25 2259 1459 Sodium Chloride 1,000 ML Escitalopram Oxalate 20 MG QPM 11/22 2100 AC 11/24 PO 2024 Folic Acid 1 MG DAILY 11/25 0915 AC 11/25 PO 1017 Gabapentin 100 MG TID PRN 11/23 1745 AC PO Ibuprofen 600 MG 4 TIMES/DAY PRN 11/22 1945 AC 11/23 PO 2141 Lidocaine 1 PAT DAILY 11/22 1939 AC 11/23 EXT 0834 Lorazepam 0.5 MG ONCE 11/28 0000 DC IV 11/28 0001 Lorazepam 0.5 MG Q6 11/27 0600 DC IV 11/28 0000 Lorazepam 0.5 MG ONCE ONE 11/26 1800 DC IV 11/26 1801 Lorazepam 1 MG Q6H 11/26 0000 DC IV 11/26 1201 Lorazepam 1.5 MG Q6 11/25 1200 AC PO Lorazepam 1.5 MG Q12H 11/25 0600 DC IV 11/25 1801 Lorazepam 1 MG Q12H 11/25 0000 DC IV 11/25 1201 Lorazepam 2 MG ONCE ONE 11/24 1800 DC IV 11/24 1801 Lorazepam 0 Q1P PRN 11/23 1815 AC 11/23 IV 2145 Lorazepam 2 MG Q6 11/23 1800 DC 11/25 PO 0522 Metoprolol Succinate 100 MG DAILY 11/23 0900 AC 11/25 PO 1020 Multivitamins 1 TAB DAILY 11/23 1739 AC 11/25 Therapeutic PO 1020 Nicotine 14 MG DAILY 11/23 1934 AC 11/25 TOP 1021 Omeprazole 40 MG DAILY AC 11/24 1730 AC 11/25 PO 0522 Potassium Chloride 40 MEQ ONCE ONE 11/25 0915 DC 11/25 PO 11/25 0916 1018 Potassium Chloride 40 MEQ ONCE ONE 11/24 1515 DC 11/24 PO 11/24 1516 1711 Thiamine HCl 50 MG DAILY 11/25 0909 AC 11/25 PO 1018 Last 24 Hrs of Lab/Mayco Results Last 24 Hrs of Labs/Mics: Laboratory Tests 11/25/17 0630: Anion Gap 9, Estimated GFR > 60, BUN/Creatinine Ratio 11.7, CBC w Diff NO MAN DIFF REQ, RBC 4.41 L, MCV 93.2, MCH 32.1 H, MCHC 34.4, RDW 13.9, MPV 9.1, Gran % 68.2, Lymphocytes % 24.5, Monocytes % 5.6, Eosinophils % 1.4, Basophils % 0.3, Absolute Granulocytes 5.6, Absolute Lymphocytes 2.0, Absolute Monocytes 0.5, Absolute Eosinophils 0.1, Absolute Basophils 0 Assessment/Plan Assessment: Mr. Eddy is a 47-year-old gentleman with past medical history of alcohol abuse with 2 episodes of alcohol detox, one episode of benzo/alcohol withdrawal seizures and HTN who presents to the ED with alcohol withdrawal. Problem list: #Alcohol use disorder/withdrawal #Mild Transaminitis - resolved Plan: Continue Ativan per CIWA protocol. Scoring 2 in CIWA. Continue Scheduled Ativan at 1.5 mg every 6. Discontinue banana bag. Patient able to tolerate oral feeds. Continue MVI, thiamine, folate supplement. Potassium 3.5 was Repleted. Continue Nicotine patch Continue Gabapentin, Escitalopram, and Metoprolol Appreciate Psych recommendations Diet: Regular DVT ppx: sc Lovenox Code: Full Problem List: 1. Alcohol dependency Pain Ratin Pain Location: None Pain Goal: Remain pain free Pain Plan: Tylenol Tomorrow's Labs & Rationales: CBC, BEP
[2017-11-25 08:26] LABS: ABSOLUTE BASOPHIL COUNT 0 /CUMM (0.0-0.2); ABSOLUTE EOSINOPHIL COUNT 0.1 /CUMM (0.0-0.7); ABSOLUTE GRANULOCYTE CT 5.6 /CUMM (1.4-6.5); ABSOLUTE MONOCYTE COUNT 0.5 /CUMM (0.10-0.60); BASOPHIL % 0.3 % (0.0-2.0); EOSINOPHIL % 1.4 % (0-5); GRANULOCYTE % 68.2 % (42.2-75.2); HEMATOCRIT 41.1 % (42-52); MEAN CORPUSCULAR HGB 32.1 PG (27.0-31.0); MEAN CORPUSCULAR HGB CONC 34.4 G/DL (33.0-37.0); MEAN CORPUSCULAR VOLUME 93.2 FL (80.0-94.0); MEAN PLATELET VOLUME 9.1 FL (7.4-10.4); PLATELET COUNT 137 /CUMM (130-400); RBC DISTRIBUTION WIDTH 13.9 % (11.5-14.5); RED BLOOD CELL CT 4.41 /CUMM (4.70-6.10)
[2017-11-25 10:06] LABS: WHITE BLOOD CELL COUNT 8.1 /CUMM (4.8-10.8)
[2017-11-25 14:49] VITALS: BP 138/88
[2017-11-25 18:30] VITALS: BP 116/84
[2017-11-25 22:55] VITALS: BP 124/82
[2017-11-26] VITALS (9 sets, daily range): BP systolic 110–136; BP diastolic 62–88
--- NOTE | 2017-11-26 07:57 | PN- Housestaff ---
Toshia Granado 11/26/17 0756: Subjective Follow-up For: #Alcohol use disorder/withdrawal #Transaminitis - resolved Subjective: CIWA 0 overnight. Patient offers no complaints. Review of Systems Constitutional: Reports: see HPI. Objective Last 24 Hrs of Vital Signs/I&O Vital Signs Date Time Temp Pulse Resp B/P B/P Pulse O2 O2 Flow FiO2 Mean Ox Delivery Rate 11/26 0641 98.7 90 18 132/88 97 Room Air 11/26 0226 97.9 72 18 136/80 93 Room Air 11/25 2255 98.8 74 20 124/82 94 Room Air 11/25 2138 73 116/84 11/25 1830 98.5 73 20 116/84 93 Room Air 11/25 1449 99.4 82 20 138/88 94 Intake & Output 11/26 1600 11/26 0800 11/26 0000 Intake Total 300 200 Output Total Balance 300 200 Intake, Oral 300 200 Physical Exam General Appearance: Alert, Oriented X3, Cooperative, No Acute Distress Cardiovascular: Regular Rate, Normal S1, Normal S2 Lungs: Clear to Auscultation, Normal Air Movement Abdomen: Normal Bowel Sounds, Soft, No Tenderness Extremities: No Edema Current Medications: Current Medications Sig/Romeo Start time Last Medication Dose Route Stop Time Status Admin Albuterol Sulfate 2 PUF Q4 11/23 1800 AC 11/26 INH 0606 Budesonide/ 2 PUF BID 11/23 2100 AC 11/25 Formoterol Fumarate INH 2137 Cholecalciferol 2,000 IU DAILY 11/23 1739 AC 11/25 PO 1019 Clonidine 0.1 MG TID 11/22 2100 AC 11/25 PO 2138 Cyanocobalamin/ 1 BAG 1500 11/24 1500 DC 11/24 Thiamine/Pyridoxine IV 11/25 2259 1459 Sodium Chloride 1,000 ML Escitalopram Oxalate 20 MG QPM 11/22 2100 AC 11/25 PO 2138 Folic Acid 1 MG DAILY 11/25 0915 AC 11/25 PO 1017 Gabapentin 100 MG TID PRN 11/23 1745 AC PO Ibuprofen 600 MG 4 TIMES/DAY PRN 11/22 1945 AC 11/23 PO 2141 Lidocaine 1 PAT DAILY 11/22 1939 AC 11/23 EXT 0834 Lorazepam 0.5 MG ONCE 11/28 0000 DC IV 11/28 0001 Lorazepam 0.5 MG Q6 11/27 0600 DC IV 11/28 0000 Lorazepam 0.5 MG ONCE ONE 11/26 1800 DC IV 11/26 1801 Lorazepam 1 MG Q6H 11/26 0000 DC IV 11/26 1201 Lorazepam 1.5 MG Q6 11/25 1200 AC 11/26 PO 0606 Lorazepam 0 Q1P PRN 11/23 1815 AC 11/23 IV 2145 Lorazepam 2 MG Q6 11/23 1800 DC 11/25 PO 0522 Metoprolol Succinate 100 MG DAILY 11/23 0900 AC 11/25 PO 1020 Multivitamins 1 TAB DAILY 11/23 1739 AC 11/25 Therapeutic PO 1020 Nicotine 14 MG DAILY 11/23 1934 AC 11/25 TOP 1021 Omeprazole 40 MG DAILY AC 11/24 1730 AC 11/26 PO 0606 Potassium Chloride 40 MEQ ONCE ONE 11/25 0915 DC 11/25 PO 11/25 0916 1018 Thiamine HCl 50 MG DAILY 11/25 0909 AC 11/25 PO 1018 Last 24 Hrs of Lab/Mayco Results Last 24 Hrs of Labs/Mics: Laboratory Tests 11/26/17 0635: Sodium Pending, Potassium Pending, Chloride Pending, Carbon Dioxide Pending, Anion Gap Pending, BUN Pending, Creatinine Pending, BUN/Creatinine Ratio Pending Assessment/Plan Assessment: Mr. Eddy is a 47-year-old gentleman with past medical history of alcohol abuse with 2 episodes of alcohol detox, one episode of benzo/alcohol withdrawal seizures and HTN who presents to the ED with alcohol withdrawal. Problem list: #Alcohol use disorder/withdrawal #Mild Transaminitis - resolved Plan: Continue Ativan per [facility] protocol. Continue taper with Scheduled Ativan at 1.5 mg every 6 Continue MVI, thiamine, folate supplement Continue Nicotine patch Continue Gabapentin, Escitalopram, and Metoprolol Appreciate Psych recommendations Diet: Regular DVT ppx: sc Lovenox Code: Full Problem List: 1. Alcohol intoxication 2. Alcohol dependency Pain Ratin Pain Location: NA Pain Goal: Remain pain free Pain Plan: NA Tomorrow's Labs & Rationales: yancy Castrejon MD,Blanca 11/26/17 1120: Attending MD Review Statement Attending Statement Attending MD Statement: examined this patient, discuss w/resident/PA/WIND FARM DESIGNER, agreed w/resident/PA/WIND FARM DESIGNER, reviewed EMR data (avail), discussed with nursing, discussed with case mgmt, reviewed images, amended to note Attending Assessment/Plan: Patient seen and examined, CIWA scores are running low. He's complaining of some neck pain and neck muscle stiffness. Vital signs are stable. Patient also complained of feeling some pain and bilateral upper extremity with some tingling. Neck x-ray showed cervical spine arthritis. We will replete his potassium and magnesium and will also add low-dose muscle relaxant. Agree with decreasing the dose of his Ativan. Continue CIWA protocol with when necessary Ativan. Please at pharmacologic DVT prophylaxis with Lovenox. Patient to be seen by high school social studies teacher.
[2017-11-27 06:58] VITALS: BP 122/88
--- NOTE | 2017-11-27 08:17 | PN- Housestaff ---
Toshia Granado 11/27/17 0816: Subjective Follow-up For: #Alcohol use disorder/withdrawal #Transaminitis - resolved Subjective: CIWA 0-1 overnight. Patient offers no complaints. Denies nausea, vomiting, abdominal pain, urinary or bowel symptoms Review of Systems Constitutional: Reports: see HPI. Objective Last 24 Hrs of Vital Signs/I&O Vital Signs Date Time Temp Pulse Resp B/P B/P Pulse O2 O2 Flow FiO2 Mean Ox Delivery Rate 11/27 0658 97.6 93 18 122/88 95 Room Air 11/26 2200 97.9 74 18 126/80 11/26 2149 97.9 74 18 126/80 93 11/26 2103 97.9 74 18 126/80 11/26 1420 98.2 71 20 118/62 11/26 1406 98.2 71 20 118/62 93 11/26 1400 98.7 90 20 132/88 11/26 1200 98.7 90 20 132/88 11/26 1000 7.8 74 20 110/78 Intake & Output 11/27 1600 11/27 0800 11/27 0000 Intake Total 300 480 Output Total Balance 300 480 Intake, Oral 300 480 Physical Exam General Appearance: Alert, Oriented X3, Cooperative, No Acute Distress Cardiovascular: Regular Rate, Normal S1, Normal S2 Lungs: Clear to Auscultation, Normal Air Movement Extremities: No Tenderness/Swelling Current Medications: Current Medications Sig/Romeo Start time Last Medication Dose Route Stop Time Status Admin Albuterol Sulfate 2 PUF Q4 11/23 1800 AC 11/27 INH 0514 Budesonide/ 2 PUF BID 11/23 2100 AC 11/26 Formoterol Fumarate INH 210 Cholecalciferol 2,000 IU DAILY 11/23 1739 AC 11/26 PO 0837 Clonidine 0.1 MG TID 11/22 2100 AC 11/26 PO 2103 Cyclobenzaprine HCl 5 MG BID PRN 11/26 1145 AC 11/26 PO 1244 Enoxaparin Sodium 40 MG DAILY@1500 11/26 1536 AC 11/26 SC 1911 Escitalopram Oxalate 20 MG QPM 11/22 2100 AC 11/26 PO 2102 Folic Acid 1 MG DAILY 11/25 0915 AC 11/26 PO 0838 Gabapentin 100 MG TID PRN 11/23 1745 AC PO Ibuprofen 600 MG 4 TIMES/DAY PRN 11/22 1945 AC 11/23 PO 2141 Lidocaine 1 PAT DAILY 11/22 1939 AC 11/23 EXT 0834 Lorazepam 0.5 MG ONCE 11/28 0000 DC IV 11/28 0001 Lorazepam 1 MG Q8 11/27 1400 AC PO Lorazepam 0.5 MG Q6 11/27 0600 DC IV 11/28 0000 Lorazepam 0.5 MG ONCE ONE 11/26 1800 DC IV 11/26 1801 Lorazepam 1.5 MG Q8 11/26 1400 DC 11/27 PO 0514 Lorazepam 0 Q1P PRN 11/23 1815 AC 11/23 IV 2145 Metoprolol Succinate 100 MG DAILY 11/23 0900 AC 11/26 PO 0838 Multivitamins 1 TAB DAILY 11/23 1739 AC 11/26 Therapeutic PO 0838 Nicotine 14 MG DAILY 11/23 1934 AC 11/26 TOP 0837 Omeprazole 40 MG DAILY AC 11/24 1730 AC 11/27 PO 0514 Potassium Chloride 40 MEQ ONCE ONE 11/26 1345 DC 11/26 PO 11/26 1346 1420 Thiamine HCl 50 MG DAILY 11/25 0909 AC 11/26 PO 0837 Last 24 Hrs of Lab/Mayco Results Last 24 Hrs of Labs/Mics: Laboratory Tests 11/27/17 0629: Sodium Pending, Potassium Pending, Chloride Pending, Carbon Dioxide Pending, Anion Gap Pending, BUN Pending, Creatinine Pending, BUN/Creatinine Ratio Pending Assessment/Plan Assessment: Mr. Eddy is a 47-year-old gentleman with past medical history of alcohol abuse with 2 episodes of alcohol detox, one episode of benzo/alcohol withdrawal seizures and HTN who presents to the ED with alcohol withdrawal. Problem list: #Alcohol use disorder/withdrawal #Mild Transaminitis - resolved Plan: Continue Ativan per CIWA protocol. Continue taper with Scheduled Ativan at 1 mg every 8 Continue MVI, thiamine, folate supplement Continue Nicotine patch Continue Lidoderm patch Continue cyclobenzaprine for spasms Continue Gabapentin, Escitalopram, and Metoprolol Appreciate Psych recommendations Diet: Regular DVT ppx: sc Lovenox Code: Full Problem List: 1. Cervical radiculopathy 2. Alcohol intoxication 3. Alcohol dependency Pain Ratin Pain Location: NA Pain Goal: Remain pain free Pain Plan: NA Tomorrow's Labs & Rationales: bep Cash STOKESBlanca 11/27/17 1125: Attending MD Review Statement Attending Statement Attending MD Statement: examined this patient, discuss w/resident/PA/CALL MANAGER, agreed w/resident/PA/CALL MANAGER, reviewed EMR data (avail), discussed with nursing, discussed with case mgmt, reviewed images, amended to note Attending Assessment/Plan: Patient seen and examined, overall feeling much better. CIWA score running low.vss. On exam; aox3, nad. cv; s1,s2, rrr resp; clear abd; soft, nt, bs+ ext; no edema Laboratory Tests 11/27 06 Chemistry Sodium (137 - 145 mmol/L) 136 L Potassium (3.5 - 5.1 mmol/L) 3.7 Chloride (98 - 107 mmol/L) 101 Carbon Dioxide (22 - 30 mmol/L) 26 Anion Gap (5 - 16) 10 BUN (9 - 20 mg/dL) 9 Creatinine (0.7 - 1.2 mg/dL) 0.6 L Estimated GFR (>60 ml/min) > 60 BUN/Creatinine Ratio (7 - 25 %) 15.0 A/P: 47-year-old male with past medical history significant for hypertension and alcohol use was admitted with acute alcohol intoxication. Agree with further taper of Ativan. Neck pain is better with Flexeril and Lidoderm patch. Continue the rest of Mx. DVt px; Lovenox.
[2017-11-27 09:44] VITALS: BP 138/90
[2017-11-27 14:02] VITALS: BP 132/80
[2017-11-27 18:00] VITALS: BP 112/80
[2017-11-27 22:07] VITALS: BP 114/70
[2017-11-28 02:10] VITALS: BP 118/64
[2017-11-28 06:20] VITALS: BP 124/68
--- NOTE | 2017-11-28 07:40 | PN- Housestaff ---
See Addendum Subjective Follow-up For: #Alcohol use disorder/withdrawal #Transaminitis - resolved Subjective: CIWA 0 overnight. Patient offers no complaints. Denies nausea, vomiting, abdominal pain, urinary or bowel symptoms Review of Systems Constitutional: Reports: see HPI. Objective Last 24 Hrs of Vital Signs/I&O Vital Signs Date Time Temp Pulse Resp B/P B/P Pulse O2 O2 Flow FiO2 Mean Ox Delivery Rate 11/28 0620 98.4 73 18 124/68 95 Room Air 11/28 0210 75 18 118/64 96 Room Air 11/27 2207 98.7 65 20 114/70 94 Room Air 11/27 2049 65 114/70 11/27 1800 98.1 73 20 112/80 93 Room Air 11/27 1405 77 132/80 11/27 1402 96.0 77 20 132/80 96 Room Air 11/27 0944 97.9 64 20 138/90 95 Room Air Intake & Output 11/28 1600 11/28 0800 11/28 0000 Intake Total 480 480 Output Total Balance 480 480 Intake, Oral 480 480 Number 1 Bowel Movements Physical Exam General Appearance: Alert, Oriented X3, Cooperative, No Acute Distress Cardiovascular: Regular Rate, Normal S1, Normal S2 Lungs: Clear to Auscultation, Normal Air Movement Abdomen: Normal Bowel Sounds, Soft, No Tenderness Current Medications: Current Medications Sig/Romeo Start time Last Medication Dose Route Stop Time Status Admin Albuterol Sulfate 2 PUF Q4 11/23 1800 AC 11/28 INH 0542 Budesonide/ 2 PUF BID 11/23 2100 11/28 Formoterol Fumarate INH 0835 Cholecalciferol 2,000 IU DAILY 11/23 1739 AC 11/28 PO 0833 Clonidine 0.1 MG TID 11/22 2100 AC 11/28 PO 0832 Cyclobenzaprine HCl 5 MG BID PRN 11/26 1145 AC 11/26 PO 1244 Enoxaparin Sodium 40 MG DAILY@1500 11/26 1536 AC 11/27 SC 1606 Escitalopram Oxalate 20 MG QPM 11/22 2100 11/27 PO 2049 Folic Acid 1 MG DAILY 11/25 0915 AC 11/28 PO 0832 Gabapentin 100 MG TID PRN 11/23 1745 AC PO Ibuprofen 600 MG 4 TIMES/DAY PRN 11/22 1945 AC 11/23 PO 2141 Lidocaine 1 PAT DAILY 11/22 1939 AC 11/27 EXT 0857 Lorazepam 0.5 MG Q8 11/28 1400 AC PO 12/04 1359 Lorazepam 0.5 MG ONCE 11/28 0000 DC IV 11/28 0001 Lorazepam 1 MG Q8 11/27 1400 DC 11/28 PO 0541 Lorazepam 0 Q1P PRN 11/23 1815 AC 11/23 IV 2145 Magnesium Oxide 400 MG BID 11/27 1141 DC 11/27 PO 11/27 2101 2049 Metoprolol Succinate 100 MG DAILY 11/23 0900 AC 11/28 PO 0833 Multivitamins 1 TAB DAILY 11/23 1739 AC 11/28 Therapeutic PO 0833 Nicotine 14 MG DAILY 11/23 1934 AC 11/28 TOP 0834 Omeprazole 40 MG DAILY AC 11/24 1730 AC 11/28 PO 0541 Patient Medication 1 ED ONE ONE 11/27 1715 DC 11/27 Teaching ED 11/27 1716 1901 Potassium Chloride 40 MEQ ONCE ONE 11/27 1145 DC 11/27 PO 11/27 1146 1208 Thiamine HCl 50 MG DAILY 11/25 0909 AC 11/28 PO 0833 Last 24 Hrs of Lab/Mayco Results Last 24 Hrs of Labs/Mics: Laboratory Tests 11/28/17 0611: Sodium Pending, Potassium Pending, Chloride Pending, Carbon Dioxide Pending, Anion Gap Pending, BUN Pending, Creatinine Pending, BUN/Creatinine Ratio Pending Assessment/Plan Assessment: Mr. Eddy is a 47-year-old gentleman with past medical history of alcohol abuse with 2 episodes of alcohol detox, one episode of benzo/alcohol withdrawal seizures and HTN who presents to the ED with alcohol withdrawal. Problem list: #Alcohol use disorder/withdrawal #Mild Transaminitis - resolved Plan: Continue Ativan per CIWA protocol. Continue taper with Scheduled Ativan at 1 mg every 8 Continue MVI, thiamine, folate supplement Continue Nicotine patch Continue Lidoderm patch Continue cyclobenzaprine for spasms Continue Gabapentin, Escitalopram, and Metoprolol Appreciate Psych recommendations Diet: Regular DVT ppx: sc Lovenox Code: Full Dispo: DC home today Problem List: 1. Alcohol dependency 2. Alcohol intoxication 3. Alcohol abuse Pain Ratin Pain Location: NA Pain Goal: Remain pain free Pain Plan: NA Tomorrow's Labs & Rationales: none
[2017-11-28] MEDS ORDERED: NICOTINE PATCH1 EAC2 TOP ×2 (07:52→09:48)
[2017-11-28] MEDS ORDERED: VITAMIN B-150 M1 PO ×2 (07:52→09:48)
[2017-11-28] MEDS ORDERED: FOLIC ACID1 M1 PO ×2 (07:52→09:48)
[2017-11-28] MEDS ORDERED: OMEPRAZOLE20 M2 PO ×2 (07:52→09:48)
[2017-11-28] MEDS ORDERED: CLONIDINE PO ×2 (07:52→09:48)
[2017-11-28] MEDS ORDERED: CYCLOBENZAPRINE5 M2 PO ×2 (07:52→09:48)
--- NOTE | 2017-11-28 07:54 | Patient Discharge Instructions ---
Discharge Instructions General Discharge Information You were seen/treated for: Alcohol withdrawal Neck pain You had these procedures: none Special Instructions: Follow up with your PCP within 1 week of discharge You were given a new medication Clonidine for your high blood pressure. Discuss with your PCP in regards to continuing this medication Diet Continue normal diet: Yes Activity Full Activity/No Limits: Yes Acute Coronary Syndrome Inclusion Criteria At DC or during hospital stay patient has or had the following: ACS DIAGNOSIS No Discharge Core Measures Meds if any: Prescribed or Continued at Discharge Meds if any: NOT Prescribed or Continued at Discharge Congestive Heart Failure Inclusion Criteria At DC or during hospital stay patient has or had the following: CHF DIAGNOSIS No Discharge Core Measures Meds if any: Prescribed or Continued at Discharge Meds if any: NOT Prescribed or Continued at Discharge Cerebrovascular accident Inclusion Criteria At DC or during hospital stay patient has or had the following: CVA/TIA Diagnosis No Discharge Core Measures Meds if any: Prescribed or Continued at Discharge Meds if any: NOT Prescribed or Continued at Discharge Venous thromboembolism Inclusion Criteria VTE Diagnosis No VTE Type NONE VTE Confirmed by (Test) NONE Discharge Core Measures - Per Current guidelines, there needs to be overlap - treatment for the first 5 days of Warfarin therapy. - If discharged on Warfarin prior to 5 days of - overlap therapy, the patient will need to be - assessed for post discharge needs including - *Post discharge parental anticoagulation - *Warfarin and/or parental anticoagulation education - *Follow up date to check INR post discharge At least 5 days overlap therapy as Inpatient No Meds if any: Prescribed or Continued at Discharge Note: Overlap Therapy is Warfarin and Anticoagulant Meds if any: NOT Prescribed or Continued at Discharge
[2017-11-28] MEDS ORDERED: CATAPRES0.1 M1 PO (09:50)
--- NOTE | 2017-11-28 11:09 | Discharge Summary ---
Hospital Course Allergies: Coded Allergies: No Known Allergies (11/09/15) Discharge Instructions Medications at Discharge Discharge Medications: Continue taking these medications: Metoprolol Succ XL (Toprol XL) 100 MG TAB.ER.24H 1 Tablet ORAL DAILY Comments: Last Taken: 11/28/17 Time: 830AM Escitalopram Oxalate (Lexapro) 20 MG TABLET 1 Tablet ORAL Every night Comments: Last Taken: 11/27/17 Time: 850PM Fluticasone/Salmeterol (Advair 250-50 Diskus) 1 EACH BLST.W.DEV 1 Puff Inhale through mouth DAILY Comments: SYMBICORT GIVEN IN HOSPITAL Last Taken: 10/30/17 Time: 0845AM Gabapentin (Gabapentin) 100 MG CAPSULE 1 Capsule ORAL THREE TIMES DAILY as needed for ANXIETY Comments: NOT GIVEN IN HOSPITAL Gluc 2KCL/Chondr/Cecile Hy/Hy AC (Glucosamine & Chondroitin Cap) 375 MG-300 MG-175 MG-2 MG CAPSULE 1 Tablet ORAL DAILY Comments: NOT GIVEN IN HOSPITAL Cholecalciferol (Vitamin D3) (Vitamin D) 2,000 UNIT CAPSULE 1 Capsule ORAL DAILY Qty = 60 Comments: Last Taken: 11/28/17 Time: 830AM Multiple Vitamin (Multivitamins) 1 EACH TABLET 1 Tablet ORAL DAILY Qty = 30 Comments: Last Taken: 11/28/17 Time: 830AM Lidocaine (Lidocaine) 5 % ADH..PATCH 1 Patch On the skin DAILY Qty = 30 Comments: Last Taken: 11/27/17 Time: 900AM Start taking the following new medications: Thiamine HCl (Vitamin B-1) 50 MG TABLET 50 Milligram ORAL DAILY Qty = 30 No Refills Instructions: . Comments: Last Taken: 11/28/17 Time: 830AM Folic Acid (Folic Acid) 1 MG TABLET 1 Milligram ORAL DAILY Qty = 30 No Refills Instructions: . Comments: Last Taken: 11/28/17 Time: 830AM Omeprazole (Omeprazole) 20 MG CAPSULE.DR 40 Milligram ORAL DAILY BEFORE BREAKFAST Qty = 14 No Refills Instructions: . Comments: Last Taken: 11/28/17 Time: 540AM Nicotine (Nicotine Patch) 14 MG/24 HOUR PATCH.TD24 14 Milligram On the skin DAILY Qty = 7 No Refills Instructions: . Comments: Last Taken: 11/28/17 Time: 830AM Cyclobenzaprine HCl (Cyclobenzaprine HCl) 5 MG TABLET 5 Milligram ORAL TWICE DAILY as needed for neck pain Qty = 10 No Refills Instructions: . Comments: Last Taken: 11/26/17 Time: 1245PM Clonidine HCl (Catapres) 0.1 MG TABLET 0.1 Milligram ORAL THREE TIMES DAILY Qty = 21 No Refills Comments: Last Taken: 11/28/17 Time: 830AM
== END 2017-11-28 11:00 | DRG 775 ==
LOC: ERH 18:59 → ERHI 19:40 → 2NA 11-23 14:13 → EDBEDREQ 11-23 15:21 → ENRESERV 11-23 16:12 → 2NA 11-23 16:54 → ENTRNSPT 11-23 16:54 → EDTRNSPTSTS 11-23 17:01 → EDTRNSPT 11-23 17:01 → 2NA 11-23 17:06 → CMPTRNSPT 11-23 17:19 → 2NA 11-26 07:11 → ENPENDDIS 11-28 09:19 → 2NA 11-28 11:00
PROVIDERS: Emergency Medicine; Student in an Organized Health Care Education/Training Program
DX: F10.239 Alcohol dependence with withdrawal, unspecified (principal); Y90.8 Blood alcohol level of 240 mg/100 ml or more; M54.12 Radiculopathy, cervical region; I10 Essential (primary) hypertension; F41.9 Anxiety disorder, unspecified; R74.0 Nonspecific elevation of levels of transaminase and lactic acid dehydrogenase [LDH]; F17.200 Nicotine dependence, unspecified, uncomplicated
CPT/HCPCS: 2NAP; 6030; 36592; 72050; 80307; 82436; 99291; G0378; G0480; J1650; J3490; J7508

== ENCOUNTER 2017-12-05 17:27 | Inpatient (IN) | payer OTHER ==
[~2017-12-05] VITALS: Ht 170.2 cm; Wt 74.8 kg
[~2017-12-05 17:27] MED LIST changes: +CATAPRES0.1 M1 PO; +CLONIDINE PO; +CYCLOBENZAPRINE5 M2 PO; +FOLIC ACID1 M1 PO; +NICOTINE PATCH1 EAC2 TOP; +OMEPRAZOLE20 M2 PO; +VITAMIN B-150 M1 PO
[2017-12-05 18:32] VITALS: BP 101/56
[2017-12-05 19:35] VITALS: BP 115/75
[2017-12-05 19:48] LABS: ABSOLUTE BASOPHIL COUNT 0 /CUMM (0.0-0.2); ABSOLUTE EOSINOPHIL COUNT 0.2 /CUMM (0.0-0.7); ABSOLUTE GRANULOCYTE CT 3.2 /CUMM (1.4-6.5); ABSOLUTE LYMPH COUNT 4.4 /CUMM (1.2-3.4); ABSOLUTE MONOCYTE COUNT 0.6 /CUMM (0.10-0.60); BASOPHIL % 0.5 % (0.0-2.0); EOSINOPHIL % 2.6 % (0-5); GRANULOCYTE % 37.9 % (42.2-75.2); HEMATOCRIT 38.9 % (42-52); MEAN CORPUSCULAR HGB 32.3 PG (27.0-31.0); MEAN CORPUSCULAR HGB CONC 34.5 G/DL (33.0-37.0); MEAN CORPUSCULAR VOLUME 93.8 FL (80.0-94.0); MEAN PLATELET VOLUME 7.5 FL (7.4-10.4); PLATELET COUNT 336 /CUMM (130-400); RBC DISTRIBUTION WIDTH 14.3 % (11.5-14.5); RED BLOOD CELL CT 4.14 /CUMM (4.70-6.10); WHITE BLOOD CELL COUNT 8.4 /CUMM (4.8-10.8)
[2017-12-05 20:21] VITALS: BP 106/57
--- NOTE | 2017-12-05 21:20 | ED PSYCHIATRIC COMPLAINT ---
See Addendum History of Present Illness General Chief Complaint: Psychiatric Related Complaint Stated Complaint: NECK PAIN RADIATING DOWN LEFT ARM Source: patient, old records Exam Limitations: no limitations Vital Signs & Intake/Output Vital Signs & Intake/Output Vital Signs Date Time Temp Pulse Resp B/P B/P Pulse O2 O2 Flow FiO2 Mean Ox Delivery Rate 12/06 1515 88 170/108 12/06 1512 98.6 88 18 170/108 12/06 1512 98.6 88 18 170/108 94 Room Air 12/06 1229 99.1 92 18 170/104 12/06 1229 99.1 92 18 170/104 100 Room Air 12/06 1154 91 20 189/98 100 12/06 0927 98.6 96 18 172/98 12/06 0927 98.6 96 18 172/98 12/06 0925 98.6 96 18 172/98 12/06 0924 98.6 96 18 172/98 95 Room Air 12/06 0730 97.7 95 18 128/79 95 Room Air 12/06 0728 97.7 95 18 128/79 12/06 0605 98.3 87 18 138/66 100 Room Air 12/06 0432 97.8 74 18 104/63 12/06 0432 97.8 74 18 104/63 95 Room Air 12/06 0222 79.7 73 18 101/59 12/06 0222 97.7 73 18 101/59 93 Room Air 12/06 0036 97.2 79 18 100/69 12/06 0036 97.2 79 18 100/69 97 Room Air 12/05 2236 97.6 82 16 109/62 12/056 97.6 82 16 109/62 95 Room Air 12/05 2020 97.9 81 95 106/57 12/05 2020 97.9 81 18 106/57 95 12/05 1935 98.3 89 18 115/75 12/05 1842 Room Air 12/05 1832 98.3 83 18 101/56 12/05 1832 98.3 83 18 101/56 94 Room Air ED Intake and Output 12/06 0000 12/05 1200 Intake Total Output Total 200 Balance -200 Output, Urine 200 Patient 178 lb Weight Allergies Coded Allergies: No Known Allergies (11/09/15) Reconcile Medications Cholecalciferol (Vitamin D3) (Vitamin D) 2,000 UNIT CAPSULE 1 CAP PO DAILY SUPPLEMENT (Reported) Clonidine HCl (Catapres) 0.1 MG TABLET 0.1 MG PO TID blodd pressure Cyclobenzaprine HCl 5 MG TABLET 5 MG PO BID PRN neck pain . Escitalopram Oxalate (Lexapro) 20 MG TABLET 1 TAB PO QPM ANXIETY (Reported) Fluticasone/Salmeterol (Advair 250-50 Diskus) 1 EACH BLST.W.DEV 1 PUF INH DAILY RESP. (Reported) Folic Acid 1 MG TABLET 1 MG PO DAILY vitamin supplement . Gabapentin 100 MG CAPSULE 1 CAP PO TID PRN ANXIETY (Reported) Gluc 2KCL/Chondr/Cecile Hy/Hy AC (Glucosamine & Chondroitin Cap) 375 MG-300 MG-175 MG-2 MG CAPSULE 1 TAB PO DAILY SUPPLEMENT (Reported) Lidocaine 5 % ADH..PATCH 1 PAT TOP DAILY Back pain Metoprolol Succ XL (Toprol XL) 100 MG TAB.ER.24H 1 TAB PO DAILY BP (Reported) Multiple Vitamin (Multivitamins) 1 EACH TABLET 1 TAB PO DAILY Supplement Nicotine (Nicotine Patch) 14 MG/24 HOUR PATCH.TD24 14 MG TOP DAILY SMOKING CESSATION . Omeprazole 20 MG CAPSULE.DR 40 MG PO DAILY AC ACID REFLUX . Thiamine HCl (Vitamin B-1) 50 MG TABLET 50 MG PO DAILY vitamin supplement . Triage Note: 47 YEAR OLD MALE COMES TO ER WITH COMPLAINTS OF CHRONIC NECK PAIN , PT HAS BEEN SEEN FOR THIS AND HAS BEEN REFERRED TO PAIN MANAGEMENT AND MRI, PTS MOTHER IS WITH PT AND STATES THAT PT DRINKS ALL OF THE TIME AND THAT HE HAS NOT BEEN TAKING HIS MEDS PTS MOTHER STATES THAT PT THREATENED TO KILLL HIMSELF IF SHE DID NOT DRIVE HIM TO THE HOSPITAL. PTS MOTHER CRYING AT TRIAGE AND STATES THAT THE PATIENT NEEDS TO BE ADMITTED. PT ADMITS TO DRINKING PINT AND A HALF TODAY.PT STATES THAT IF HE GOES HOME " IM GOING TO STAB MYSELF IN THE NECK" Triage Nurses Notes Reviewed? yes Onset: Just prior to arrival Duration: day(s):, constant, continues in ED Timing: recent history Severity: moderate Associated Symptoms: impaired concentration, suicidal ideation HPI: Patient was recently admitted and discharged for alcohol detox. Reports 3 days prior to admission he began drinking heavily again to self medicate for his chronic neck pain that is so severe he threatens to kill himself. Denies fever chills nausea vomiting diarrhea abdominal pain chest pain cough shortness of breath headache dysuria rash bleeding. (Main Carr MD) Past History Travel History Traveled to [place] past 21 day No Medical History Any Pertinent Medical History? see below for history Neurological: seizure EENT: NONE Cardiovascular: hypertension Respiratory: NONE Gastrointestinal: NONE Hepatic: NONE Renal: NONE Musculoskeletal: osteoarthritis Psychiatric: anxiety, Alcohol use disorder Endocrine: NONE Blood Disorders: NONE Cancer(s): NONE JOINT SETTER/Reproductive: NONE History of MRSA: No History of VRE: No History of CDIFF: No Isolation History: Standard Tetanus Vaccine: 11/09/15 Surgical History Surgical History: N Psychosocial History Who do you live with Mother Services at Home None What is your primary language Upper Sorbian Tobacco Use: Current Daily Use Daily Tobacco Use Amount/Type: => 5 Cigarettes daily ETOH Use: alcoholic Illicit Drug Use: denies illicit drug use Family History Hx Contributory? No (Main Carr MD) Review of Systems Review of Systems Constitutional: Reports: no symptoms. EENTM: Reports: no symptoms. Respiratory: Reports: no symptoms. Cardiovascular: Reports: no symptoms. GI: Reports: no symptoms. Genitourinary: Reports: no symptoms. Musculoskeletal: Reports: see HPI, neck pain. Skin: Reports: no symptoms. Neurological/Psychological: Reports: see HPI. Hematologic/Endocrine: Reports: no symptoms. Immunologic/Allergic: Reports: no symptoms. All Other Systems: Reviewed and Negative (Main Carr MD) Physical Exam Physical Exam General Appearance: well developed/nourished, alert, awake, anxious, mild distress, intoxicated Head: atraumatic, normal appearance Eyes: Bilateral: normal appearance, PERRL, EOMI. Ears, Nose, Throat: normal pharynx, normal ENT inspection, hearing grossly normal Neck: normal inspection, supple, full range of motion, ecchymosis Respiratory: normal breath sounds, chest non-tender, no respiratory distress, quiet respiration, lungs clear Cardiovascular: regular rate/rhythm, normal peripheral pulses, norml femoral pulses equa Gastrointestinal: normal bowel sounds, soft, non-tender, no organomegaly Extremities: normal range of motion, no ligament instability Neurological/Psychiatric: no motor/sensory deficits, awake, agitated, alert, anxious, licensed guide II-XII nml as tested Appearance/Memory/Insight: disheveled, impaired insight Behavoir/Eye Contact/Speech: cooperative, compulsive, increased rate of speech Thoughts/Hallucinations: no apparent hallucination Skin: intact, normal color, warm/dry SAD PERSONS SAD PERSONS Response Value Male Sex? yes 1 Age <19 or >45 years? yes 1 Depression/Hopelessness? yes 2 Previous Attempts/Psych Care yes 1 Excessive Ethanol/Drug Use? yes 1 Rational Thinking Loss? yes 2 Social Support? has support 0 Stated Future Intent? yes 2 Total 10 SAD PERSONS Done? yes (Lilly STOKES,Main) Progress Differential Diagnosis: drug intoxication, drug overdose, drug withdrawal, electrolyte abnormality, hypoglycemia Plan of Care: Orders Procedure Date/time Status Regular Diet 12/06 B Active Continuous Observation Monitor 12/06 0700 Active Continuous Observation Monitor 12/06 0300 Active Continuous Observation Monitor 12/05 2300 Active CIWA 12/05 1920 Active ED CRISIS PSYCH CONSULT 12/05 1920 Active URINE DRUG SCREEN FOR ER ONLY 12/05 1910 Complete ETHANOL 12/05 1910 Complete COMPREHENSIVE METABOLIC PANEL 12/05 1910 Complete CBC WITHOUT DIFFERENTIAL 12/05 1910 Complete Continuous Observation Monitor 12/05 190 Active Current Medications Sig/Romeo Start time Last Medication Dose Stop Time Status Admin Metoprolol Succinate 100 MG DAILY 12/06 0900 UNVr 12/06 (Toprol Xl) 0927 Gabapentin 300 MG Q8 12/05 2199 UNVr 12/06 (Neurontin) 1515 Clonidine 0.1 MG TID 12/05 2099 UNVr 12/06 (Catapres) 1515 Escitalopram Oxalate 10 MG QPM 12/05 2099 UNVr 12/05 (Lexapro) 2237 Cyclobenzaprine HCl 5 MG BID PRN 12/05 1929 UNVr (Flexeril 5MG Tab) Lidocaine 1 PAT DAILY 12/05 1920 UNVr 12/06 (Lidoderm) 0927 Nicotine 14 MG DAILY 12/05 1920 UNVr 12/06 (Nicotine Cq) 0927 Laboratory Tests 12/05/171923: Anion Gap 16, Estimated GFR > 60, BUN/Creatinine Ratio 13.8, Glucose 112 H, Calcium 8.3 L, Total Bilirubin 0.2, AST 48, ALT 60, Alkaline Phosphatase 81, Total Protein 6.4, Albumin 3.7, Globulin 2.7, Albumin/Globulin Ratio 1.4, CBC w Diff NO MAN DIFF REQ, RBC 4.14 L, MCV 93.8, MCH 32.3 H, MCHC 34.5, RDW 14.3, MPV 7.5, Gran % 37.9 L, Lymphocytes % 52.3 H, Monocytes % 6.7, Eosinophils % 2.6, Basophils % 0.5, Absolute Granulocytes 3.2, Absolute Lymphocytes 4.4 H, Absolute Monocytes 0.6, Absolute Eosinophils 0.2, Absolute Basophils 0, Serum Alcohol 340.0 12/05/173: Urine Opiates Screen < 100, Methadone Screen 53, Barbiturate Screen < 60, Ur Phencyclidine Scrn < 6.00, Amphetamines Screen 160, U Benzodiazepines Scrn < 85, Urine Cocaine Screen < 50, Urine Cannabis Screen < 5.00 Hand-Off Endorsed To: Dk Abbasi MD Endorsed Time: 0700 Pending: consult (crisis) (Main Carr MD) Comments: Patient has been seen and evaluated with seed production field supervisor. He has been cleared from a psychiatric point of view. Patient was offered to go home with Librium taper however he is very concerned and thinks that he really needs to stay in the hospital for alcohol detox. Patient states that his neck just hurt so bad that he forces him to drink. Patient has no appointment with pain management as well as physical therapy and is in discussion with his doctor for an MRI of the neck. Patient notified that we would not be admitting him for neck pain however we would send the paperwork to the state to see if they would approve another admission for alcohol detox (Dk Abbasi MD) Departure Departure Disposition: STILL A PATIENT Condition: Stable Clinical Impression Primary Impression: Alcohol intoxication delirium Secondary Impressions: Chronic neck pain, Suicidal ideation Referrals: Dk Leonardo MD (PCP/Family) Departure Forms: General Discharge Information (Main Carr MD) Admission Note Spoke With: Shanel Galvez MD Documentation of Exam: Documentation of any treatments & extenuating circumstances including Concerns Regarding Discharge (functional status, medication knowledge or non-compliance, living conditions, etc.) that warrant an admission rather than observation: [ Admitted for alcohol dependency and acute withdrawal. Patient has an IOP appointment for December 12 so he can transition right into IOP care upon discharge from the hospital.] (Dk Abbasi MD)
[2017-12-05 22:36] VITALS: BP 109/62
[2017-12-06] VITALS (11 sets, daily range): BP systolic 100–174; BP diastolic 59–111
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
--- NOTE | 2017-12-06 19:55 | History & Physical ---
WareKaylene 12/06/171953: General Information and HPI MD Statement: I have seen and personally examined BOO MCCARTY and documented this H&P. The patient is a 47 year old M who presented with a patient stated chief complaint of [Alcohol detox]. Source of Information: patient, old records Exam Limitations: no limitations History of Present Illness: Mr. Mccarty is a 47yo M w/ PMH of hypertension, OA, alcohol use disorder, anxiety, history of remote alcohol withdrawl seizure about 10yrs ago x 1 episode, presented with a ER for alcohol detox. Patient presented with chief complaint of chronic neck pain, that was recently referred to pain management and MRI, however patient's mother stated the patient was drinking all the times for the past 3 days to self medicate himself for the chronic neck pain, and he has not been taking his meds. Patient also expressed suicidal ideations per patient's mother upon ER visit. His right neck pain started a few months ago with worsening in the last few weeks, w/ radiation to right arm with on/off tingling sensation. Patient had tried Flexril, Tylenol, Motrin however without any particular relief. Patient was recommended for MRI, however he did not go or follow with any physical therapy at least. Patient denies any hallucination, delusions, but endorsed suicidal ideation to ER, and had sitter in place. Upon admission to the floor, patient denied any suicidal ideation or homicidal ideation anymore. Patient was now intubated was admitted to ICU, and multiple trials were previous detoxing hospital before. Patient had drank approximately 7 50 cc of vodka per day, and last drink was the day prior to this admission. Patient is a current active smoker 5-6 homemade cigars per day, smoking for 16 years. Allergies/Medications Allergies: Coded Allergies: No Known Allergies (11/09/15) Home Med list Cholecalciferol (Vitamin D3) (Vitamin D) 2,000 UNIT CAPSULE 1 CAP PO DAILY SUPPLEMENT (Reported) Clonidine HCl (Catapres) 0.1 MG TABLET 0.1 MG PO TID blodd pressure Cyclobenzaprine HCl 5 MG TABLET 5 MG PO BID PRN neck pain . Escitalopram Oxalate (Lexapro) 20 MG TABLET 1 TAB PO QPM ANXIETY (Reported) Fluticasone/Salmeterol (Advair 250-50 Diskus) 1 EACH BLST.W.DEV 1 PUF INH DAILY RESP. (Reported) Folic Acid 1 MG TABLET 1 MG PO DAILY vitamin supplement . Gabapentin 100 MG CAPSULE 1 CAP PO TID PRN ANXIETY (Reported) Gluc 2KCL/Chondr/Cecile Hy/Hy AC (Glucosamine & Chondroitin Cap) 375 MG-300 MG-175 MG-2 MG CAPSULE 1 TAB PO DAILY SUPPLEMENT (Reported) Lidocaine 5 % ADH..PATCH 1 PAT TOP DAILY Back pain Metoprolol Succ XL (Toprol XL) 100 MG TAB.ER.24H 1 TAB PO DAILY BP (Reported) Multiple Vitamin (Multivitamins) 1 EACH TABLET 1 TAB PO DAILY Supplement Nicotine (Nicotine Patch) 14 MG/24 HOUR PATCH.TD24 14 MG TOP DAILY SMOKING CESSATION . Omeprazole 20 MG CAPSULE.DR 40 MG PO DAILY AC ACID REFLUX . Thiamine HCl (Vitamin B-1) 50 MG TABLET 50 MG PO DAILY vitamin supplement . 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 Exam & Diagnostic Data Last 24 Hrs of Vital Signs/I&O Vital Signs Date Time Temp Pulse Resp B/P B/P Pulse O2 O2 Flow FiO2 Mean Ox Delivery Rate 12/06 1837 98.4 95 20 169/104 12/06 1838 98.4 95 20 169/104 93 Room Air 12/06 1515 88 170/108 12/06 1512 98.6 88 18 170/108 12/06 1512 98.6 88 18 170/108 94 Room Air 12/06 1229 99.1 92 18 170/104 12/06 1229 99.1 92 18 170/104 100 Room Air 12/06 1154 91 20 189/98 100 12/06 0927 98.6 96 18 172/98 12/06 926 98.6 96 18 172/98 12/06 0925 98.6 96 18 172/98 12/06 0924 98.6 96 18 172/98 95 Room Air 12/06 0730 97.7 95 18 128/79 95 Room Air 12/06 0728 97.7 95 18 128/79 12/06 0605 98.3 87 18 138/66 100 Room Air 12/06 0432 97.8 74 18 104/63 12/06 0432 97.8 74 18 104/63 95 Room Air 12/06 0222 79.7 73 18 101/59 12/06 0222 97.7 73 18 101/59 93 Room Air 12/06 0036 97.2 79 18 100/69 12/06 0036 97.2 79 18 100/69 97 Room Air 12/05 2236 97.6 82 16 109/62 12/05 2236 97.6 82 16 109/62 95 Room Air 12/05 2020 97.9 81 95 106/57 12/05 2020 97.9 81 18 106/57 95 Intake & Output 12/06 1600 12/06 0800 12/06 0000 Intake Total Output Total 200 Balance -200 Output, Urine 200 Patient 80.739 kg Weight Physical Exam General Appearance Alert, Oriented X3, Cooperative, No Acute Distress Skin No Rashes, No Breakdown, No Significant Lesion Skin Temp/Moisture Exam: Warm/Dry Sepsis Skin Exam (color): Normal for Ethnicity HEENT Atraumatic Neck Supple, No JVD Cardiovascular Regular Rate Lungs Clear to Auscultation, Normal Air Movement Abdomen Normal Bowel Sounds, Soft, No Tenderness Neurological Normal Speech, Strength at 5/5 X4 Ext, Normal Tone, mild bilateral hand tremors Extremities No Clubbing, No Cyanosis, No Edema, Normal Pulses Assessment/Plan Assessment: On admission, Vitals: Stable afebrile, pulse 88, RR 18, BP 170/108, 94% on room air -CBC: No leukocytosis, H/H 14.4/48.9, MCV 93.8 -BMP: Unremarkable, except serum alcohol 340, 12/05/2017 Problem list/Assessment/Hospital Course: #Alcohol detox #Transaminitis #PMH of hypertension, alcohol withdrawal seizure, anxiety - Admit to general medicine, vitals/CIWA per protocol -Ativan 2 mg every 6, and taper per clinical course -Thiamine/multivitamin/folic acid/B12 -Social service consult -Jone LFTs -Alcohol cessation counseling -PT as needed -Continue gabapentin for pain DVT prophylaxis Pharm PPX + ALPS Regular Diet Full Code As Ranked By This Provider Problem List: 1. Chronic neck pain 2. Alcohol intoxication Core Measures/Misc (03/25) Acute Coronary Syndrome ACS Diagnosis: No Congestive Heart Failure Congestive Heart Failure Diagnosis No Cerebrovascular Accident CVA/TIA Diagnosis: No VTE (View Protocol) VTE Risk Factors Age>40 No Mechanical VTE Prophylaxis d/t N/A MechProphylax Ordered No VTE Pharm Prophylaxis d/t NA PharmProphylax ordered Sepsis (View protocol) Sepsis Present: No If YES complete Sepsis Event Note If YES complete Sepsis Event Note Christina Ramirez 12/07/17 0149: Core Measures/Misc (03/25) Sepsis (View protocol) If YES complete Sepsis Event Note If YES complete Sepsis Event Note Resident Review Statement Resident Statement: examined this patient, discussed with [employer] compliance internship, agreed with [employer] compliance internship Other Findings: Mr Mccarty 47 year old man w/ a PMHx of alcohol abuse ( heavy use in the last 10 years, but varying times of sobriety of 1 year, 6 months ), last hospital admission 2 weeks ago at [facility] for alcohol detox, who relapsed the day after discharge, anxiety, alcohol withdrawl seizure (10 yrs ago x one episode), hypertension, was brought in with a chief concern of chronic neck pain , and drank heavily for the last 3 days for the relief of neck pain. He did not have any chest pain, palpitations. No headache, no injury, loss of consciousness, no motorweakness. Neck pain started a few months ago, and has worsened in the last few weeks; located on the right side of the neck w/ radiation to the right arm, occassional tingling sensation. Tried flexirl, tyleol, motrin w/ no relief. He was evalated by Dr. Mckeon, and was recommended to get an MRI and see an orthopedic surgeon at some point. He did not undergo any physical therapy so far. No hallucinations, delusions. He reported suicidal ideation while he was in the emergency room, and had sitter in place. But upon talking to him, he did not have any suicidal ideation or homicidal ideation at this time. As per the patient, he was never intubated or was admitted into the ICU. He tried multiple trials of detox in a hospital. Drinks approximately 750 mL of vodka a day, and the last drink was the day prior to hospital admission. Day smoker smokes approximately 5-6 homemade cigars per day and has been smoking for the last 16 years. 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 At the time of admission-temperature 98.4, pulse rate 85, respiration 20, blood pressure 169/104, 93% on room air. He persistently remained hypotensive while he was in the ED, which improved during the day. He remained afebrile while he was in the ED. General Exam: AAOx3, No acute distress, dry mucosa, Skin: No rashes, no breakdown;HEENT: PERRLA, EOMI;Neck: Supple, No JVD; No cervical lymphadenopathy; CVS: Reg Rate, Normal S1,S2, No MGR;Resp: Normal air entry, no ronchi/rales; Abdomen: Soft, No tenderness, Normal Bowel Sounds;Neuro: Normal Speech, Strength 5/5 b/l x 4 extremities, Sensation intact, CN III-XII NL, Reflexes 2+, tremors of hand;Extremities: No cyanosis, no pedal edema Pertinent lab findings- WBC 8.4 (granulocytopenia), Hb 13.4, Platelets 236. Sodium 145, potassium 3.7, anion gap 16, bicarbonate 24, Renal function BUN 11, creatinine 0.8. Liver chemistries-AST 48, ALT 60, alkaline phosphatase 81. Alcohol serum-340. X-ray because spine-Mild degenerative changes of cervical spine. Degenerative disc height narrowing at C3-C4 and C4-C5. No change since the CT study of 06/04/2017. Etiology in his case is likely from excessive alcohol use for the relief of his neck pain, and is admitted for alcohol detox inpatient to general medicine service. He has several admissions to hospital for alcohol detox, and would like an IOP at the time of discharge. In regards to his pain in his neck, which seems chronic, with no neurological deficits warrants an outpatient evaluation at this time. He needs to be seen by physical therapy at the time of discharge. In regards to his hypertension, which is likely exacerbated by alcohol detox for which he should be continued on his home medications and short-acting vacation such as clonidine. Slightly elevated liver chemistries, could be activated to alcohol use. Problem list: #1 alcohol detox #2 elevated liver enzymes #3 hypertension #4 history of alcohol withdrawal seizures #5 history of anxiety #5 history of neck pain w/ radiculopathy Plan: #1 admit to inpatient service-Gen. medicine #2 intravenous Ativan every hour as per CIWA #3 scheduled by mouth Ativan 2 mg every 6 hourly, which should be tapered as per the CIWA protocol. #4 thiamine, multivitamin, folic acid for nutritional deficiencies, and prevention of encephalopathy. #5 continue Lexapro #6 social service consult #7 continue antihypertensives. #8 recheck liver enzymes in the a.m. #9 cessation of alcohol counseling. #10 Lidoderm patch, hot and cold therapy #11 Consider physical therapy, to establish care #12 Continue gabapentin for pain. Housekeeping checklist -DVT prophylaxis-subcutaneous heparin -GI prophylaxis-Protonix -medication reconciliation-done -pain management with Tylenol. Avoid opiates, and try nonopiate medications at this time. Smitha STOKES,Mega 12/07/17 0424: Core Measures/Misc (03/25) Sepsis (View protocol) If YES complete Sepsis Event Note If YES complete Sepsis Event Note Attending MD Review Statement Attending Statement Attending MD Statement: examined this patient, discuss w/resident/PA/CLINIC LEAD, agreed w/resident/PA/CLINIC LEAD, reviewed EMR data (avail), discussed with nursing Attending Assessment/Plan: Mr. Mccarty is a 47-year-old man with history of alcohol abuse for the past at least 10 years, recurrent hospital admissions, last hospital admission about 2 weeks ago and apparently relapsed the day after discharge, has also history of anxiety, withdrawal seizures, hypertension comes in with chief complaints of excessive drinking and concern for chronic neck pain. On examination, vital signs blood pressure 106/57, , heart rate of 81, temperature 97.9, respiratory rate of 18 Assessment 1. Acute alcohol intoxication 2. Mild transaminitis 3. Chronic neck pain Plan We'll admit to Gen. medicine inpatient service, CIWA protocol, thiamine and multivitamin and folic acid. Will obtain case management and social service consult. Apparently patient has IOP scheduled on December 12. Continue home antihypertensives. Physical therapy evaluation
[2017-12-07] VITALS (15 sets, daily range): BP systolic 100–158; BP diastolic 70–110
--- NOTE | 2017-12-07 07:23 | PN- Housestaff ---
Subjective Review of Systems Constitutional: Reports: see HPI. Objective Last 24 Hrs of Vital Signs/I&O Vital Signs Date Time Temp Pulse Resp B/P B/P Pulse O2 O2 Flow FiO2 Mean Ox Delivery Rate 12/07 0457 98.2 67 18 138/84 91 Room Air 12/07 0108 98.5 71 20 136/90 93 Room Air 12/07 0059 71 130/90 06/ 0000 98.2 72 18 158/110 12/06 2356 72 158/110 12/06 2248 98.2 72 18 158/110 95 Room Air 12/06 2110 98.0 102 16 171/111 12/06 2047 98.2 76 18 174/111 94 Room Air 12/06 1838 98.4 95 20 169/104 12/06 1838 98.4 95 20 169/104 93 Room Air 12/06 1515 88 170/108 12/06 1512 98.6 88 18 170/108 12/06 1512 98.6 88 18 170/108 94 Room Air 12/06 1229 99.1 92 18 170/104 12/06 1229 99.1 92 18 170/104 100 Room Air 12/06 1154 91 20 189/98 100 12/06 0927 98.6 96 18 172/98 12/06 0927 98.6 96 18 172/98 12/06 0925 98.6 96 18 172/98 12/06 0924 98.6 96 18 172/98 95 Room Air 12/06 0730 97.7 95 18 128/79 95 Room Air 12/06 0728 97.7 95 18 128/79 Intake & Output 12/07 0800 12/07 0000 12/06 1600 Intake Total 180 250 Output Total Balance 180 250 Intake, Oral 180 250 Patient 74.843 kg Weight Weight Reported by Patient Measurement Method Current Medications: Current Medications Sig/Romeo Start time Last Medication Dose Route Stop Time Status Admin Acetaminophen 650 MG Q8P PRN 12/06 2300 AC PO Clonidine 0 .STK-MED ONE 12/06 1511 DC PO Clonidine 0.1 MG TID 12/05 2100 AC 12/06 PO 2356 Cyanocobalamin/ 1 BAG DAILY 12/07 0900 DC Thiamine/Pyridoxine IV Sodium Chloride 1,000 ML Cyclobenzaprine HCl 5 MG .STK-MED ONE 12/06 2251 DC PO 12/06 2252 Cyclobenzaprine HCl 5 MG BID PRN 12/05 1930 AC PO Escitalopram Oxalate 10 MG QPM 12/05 2100 AC 12/06 PO 2356 Folic Acid 1 MG DAILY 12/06 2230 AC 12/06 PO 2350 Gabapentin 0 .STK-MED ONE 12/06 1511 DC PO Gabapentin 300 MG Q8 12/05 2200 AC 12/07 PO 0527 Heparin Sodium 5,000 UNIT Q8 12/06 2200 AC 12/07 (Porcine) SC 0528 Lidocaine 1 PAT 0500 12/07 0500 AC TOP Lidocaine 1 PAT DAILY 12/07 0215 DC 12/07 TOP 0425 Lidocaine 1 PAT DAILY 12/05 1921 DC 12/06 TOP 0927 Lorazepam 2 MG Q6 12/06 2359 AC 12/07 PO 0527 Lorazepam 0 Q1P PRN 12/06 2115 AC 12/07 IV 0426 Lorazepam 2 MG ONCE ONE 12/06 1530 DC 12/06 PO 12/06 1531 1548 Lorazepam 0 .STK-MED ONE 12/06 1530 DC PO Metoprolol Succinate 100 MG DAILY 12/06 0900 AC 12/06 PO 0927 Multivitamins 1 TAB DAILY 12/06 2230 AC 12/06 PO 2350 Nicotine 0 .STK-MED ONE 12/06 0919 DC TOP Nicotine 14 MG DAILY 12/05 192 AC 12/06 TOP 0927 Ondansetron HCl 4 MG ONCE ONE 12/06 0830 DC 12/06 PO 12/06 930 0927 Ondansetron HCl 0 .STK-MED ONE 12/06 0925 DC PO Thiamine HCl 100 MG DAILY 12/07 0900 AC PO Thiamine HCl 100 MG ONCE ONE 12/06 2230 DC 12/06 PO 12/06 223 2351 Lines/Diet/Fluids Restraints: none
--- NOTE | 2017-12-07 08:30 | PN- Housestaff ---
Toshia Granado 12/07/17 0830: Subjective Follow-up For: Alcohol use disorder/withdrawal Subjective: CIWA 0-9. Patient offers no complaitns. Denies nausea, vomiting, urinary or bowel symptoms Review of Systems Constitutional: Reports: see HPI. Objective Last 24 Hrs of Vital Signs/I&O Vital Signs Date Time Temp Pulse Resp B/P B/P Pulse O2 O2 Flow FiO2 Mean Ox Delivery Rate 12/07 0948 98.2 79 20 140/90 90 Room Air 12/07 0905 98.2 67 18 138/84 12/07 0905 98.2 67 18 138/84 12/07 0457 98.2 67 18 138/84 91 Room Air 12/07 0108 98.5 71 20 136/90 93 Room Air 12/07 0059 71 130/90 12/07 0000 98.2 72 18 158/110 12/06 2356 72 158/110 12/06 2248 98.2 72 18 158/110 95 Room Air 12/06 2110 98.0 102 16 171/111 12/06 2047 98.2 76 18 174/111 94 Room Air 12/06 1838 98.4 95 20 169/104 12/06 1838 98.4 95 20 169/104 93 Room Air 12/06 1515 88 170/108 12/06 1512 98.6 88 18 170/108 12/06 1512 98.6 88 18 170/108 94 Room Air Intake & Output 12/07 1600 12/07 0800 12/07 0000 Intake Total 180 250 Output Total Balance 180 250 Intake, Oral 180 250 Patient 165 lb Weight Weight Reported by Patient Measurement Method Physical Exam General Appearance: Alert, Oriented X3, Cooperative, No Acute Distress Cardiovascular: Regular Rate, Normal S1, Normal S2 Lungs: Clear to Auscultation, Normal Air Movement Abdomen: Normal Bowel Sounds, Soft, No Tenderness Extremities: No Edema Current Medications: Current Medications Sig/Romeo Start time Last Medication Dose Route Stop Time Status Admin Acetaminophen 650 MG Q8P PRN 12/06 2300 AC PO Clonidine 0 .STK-MED ONE 12/06 1511 DC PO Clonidine 0.1 MG TID 12/05 2100 AC 12/07 PO 0905 Cyanocobalamin/ 1 BAG DAILY 12/07 09 DC Thiamine/Pyridoxine IV Sodium Chloride 1,000 ML Cyclobenzaprine HCl 5 MG .STK-MED ONE 12/06 2251 DC PO 12/06 2252 Cyclobenzaprine HCl 5 MG BID PRN 12/05 1930 AC 12/07 PO 0959 Escitalopram Oxalate 10 MG QPM 12/05 2100 AC 12/06 PO 2356 Folic Acid 1 MG DAILY 12/06 2230 AC 12/06 PO 2350 Gabapentin 0 .STK-MED ONE 12/06 1511 DC PO Gabapentin 300 MG Q8 12/05 2200 AC 12/07 PO 0527 Heparin Sodium 5,000 UNIT Q8 12/06 2200 AC 12/07 (Porcine) SC 0528 Lidocaine 1 PAT 0500 12/07 0500 AC TOP Lidocaine 1 PAT DAILY 12/07 0215 DC 12/07 TOP 0425 Lidocaine 1 PAT DAILY 12/05 1921 DC 12/06 TOP 0927 Lorazepam 2 MG Q8 12/07 1400 AC PO Lorazepam 2 MG Q6 12/06 2359 DC 12/07 PO 0527 Lorazepam 0 Q1P PRN 12/06 2115 AC 12/07 IV 0426 Lorazepam 2 MG ONCE ONE 12/06 1530 DC 12/06 PO 12/06 1531 1548 Lorazepam 0 .STK-MED ONE 12/06 1530 DC PO Metoprolol Succinate 100 MG DAILY 12/06 0900 AC 12/07 PO 0905 Multivitamins 1 TAB DAILY 12/06 2230 AC 12/06 PO 2350 Nicotine 14 MG DAILY 12/05 1921 AC 12/07 TOP 0959 Thiamine HCl 100 MG DAILY 12/07 0900 AC 12/07 PO 0905 Thiamine HCl 100 MG ONCE ONE 12/06 2230 DC 12/06 PO 12/06 223 2351 Last 24 Hrs of Lab/Mayco Results Last 24 Hrs of Labs/Mics: Laboratory Tests 12/07/17 0615: Anion Gap 8, Estimated GFR > 60, BUN/Creatinine Ratio 17.1, Phosphorus 3.6, Magnesium 1.7, Total Bilirubin 1.0, Direct Bilirubin 0.2, AST 46, ALT 55, Alkaline Phosphatase 68, Total Protein 6.1 L, Albumin 3.4 L Assessment/Plan Assessment: Mr. Eddy is a 47-year-old gentleman with past medical history of alcohol abuse with 2 episodes of alcohol detox, one episode of benzo/alcohol withdrawal seizures and HTN who presents to the ED with alcohol withdrawal. Problem list: #Alcohol use disorder/withdrawal Plan: Monitor and replete magnesium and potassium PRN Continue Ativan per CIWA protocol Continue taper with Scheduled Ativan at 2 mg every 8 Continue MVI, thiamine, folate supplement Continue Nicotine patch Continue Lidoderm patch Continue cyclobenzaprine for spasms Continue Gabapentin, Escitalopram, and Metoprolol Diet: Regular DVT ppx: sc Lovenox Code: Full Problem List: 1. Alcohol intoxication Pain Ratin Pain Location: NA Pain Goal: Remain pain free Pain Plan: NA Tomorrow's Labs & Rationales: CBC, BEP Cash STOKES,Blanca 12/07/17 1133: Attending MD Review Statement Attending Statement Attending MD Statement: examined this patient, discuss w/resident/PA/HYDRO PLANT OPERATOR, agreed w/resident/PA/HYDRO PLANT OPERATOR, reviewed EMR data (avail), discussed with nursing, discussed with case mgmt, amended to note Attending Assessment/Plan: Patient seen and examined, does complain of chronic neck pain. Patient is admitted with acute alcohol withdrawal. CIWA scores are running between 3-10. Vital Signs Date Time Temp Pulse Resp B/P B/P Pulse O2 O2 Flow FiO2 Mean Ox Delivery Rate 12/07 0948 98.2 79 20 140/90 90 Room Air 12/07 0905 98.2 67 18 138/84 12/07 0905 98.2 67 18 138/84 12/07 0457 98.2 67 18 138/84 91 Room Air 12/07 0108 98.5 71 20 136/90 93 Room Air 12/07 0059 71 130/90 06/ 0000 98.2 72 18 158/110 12/06 2356 72 158/110 12/06 2248 98.2 72 18 158/110 95 Room Air 12/06 2110 98.0 102 16 171/111 12/06 2047 98.2 76 18 174/111 94 Room Air 12/06 1838 98.4 95 20 169/104 12/06 1838 98.4 95 20 169/104 93 Room Air 12/06 1515 88 170/108 12/06 1512 98.6 88 18 170/108 12/06 1512 98.6 88 18 170/108 94 Room Air 12/06 1229 99.1 92 18 170/104 12/06 1229 99.1 92 18 170/104 100 Room Air 12/06 1154 91 20 189/98 100 on exam; aox3, nad. some shaking. cv; s1,s2, rrr resp; clear abd; soft, nt, bs+ ext; no edema Laboratory Tests 12/07 0615 Chemistry Sodium (137 - 145 mmol/L) 138 Potassium (3.5 - 5.1 mmol/L) 3.8 Chloride (98 - 107 mmol/L) 100 Carbon Dioxide (22 - 30 mmol/L) 31 H Anion Gap (5 - 16) 8 BUN (9 - 20 mg/dL) 12 Creatinine (0.7 - 1.2 mg/dL) 0.7 Estimated GFR (>60 ml/min) > 60 BUN/Creatinine Ratio (7 - 25 %) 17.1 Phosphorus (2.5 - 4.5 mg/dL) 3.6 Magnesium (1.6 - 2.3 mg/dL) 1.7 Total Bilirubin (0.2 - 1.3 mg/dL) 1.0 Direct Bilirubin (< 0.4 mg/dL) 0.2 AST (17 - 59 U/L) 46 ALT (21 - 72 U/L) 55 Alkaline Phosphatase (< 127 U/L) 68 Total Protein (6.3 - 8.2 g/dL) 6.1 L Albumin (3.5 - 5.0 g/dL) 3.4 L A/P; 47 y/o M with pmh sig for hypertension, OA, alcohol use disorder multiple admissions for alcohol withdrawal admitted this time also with acute alcohol intoxication needing detox. Agree with decreasing Ativan to 2 mg every 8 hours scheduled. Continue when necessary Ativan. Patient claims that he had followed up with his primary care doctor with neck pain and the doctor had recommended MRI as well as physical therapy. We can continue the gabapentin, lidoderm patch as well as Flexeril for pain management. Continue CIWA protocol. Continue the rest of the meds. DVT px; Hep sq.
[2017-12-08 02:00] VITALS: BP 160/90
[2017-12-08 04:00] VITALS: BP 160/90
[2017-12-08 06:54] VITALS: BP 148/100
[2017-12-08 09:12] LABS: ABSOLUTE BASOPHIL COUNT 0 /CUMM (0.0-0.2); ABSOLUTE EOSINOPHIL COUNT 0.2 /CUMM (0.0-0.7); ABSOLUTE LYMPH COUNT 2.5 /CUMM (1.2-3.4); ABSOLUTE MONOCYTE COUNT 0.3 /CUMM (0.10-0.60); BASOPHIL % 0.6 % (0.0-2.0); EOSINOPHIL % 3.1 % (0-5); GRANULOCYTE % 50.4 % (42.2-75.2); HEMATOCRIT 38.5 % (42-52); MEAN CORPUSCULAR HGB 32.5 PG (27.0-31.0); MEAN CORPUSCULAR HGB CONC 34.5 G/DL (33.0-37.0); MEAN CORPUSCULAR VOLUME 94.2 FL (80.0-94.0); MEAN PLATELET VOLUME 8.1 FL (7.4-10.4); PLATELET COUNT 237 /CUMM (130-400); RBC DISTRIBUTION WIDTH 14.2 % (11.5-14.5); RED BLOOD CELL CT 4.09 /CUMM (4.70-6.10); WHITE BLOOD CELL COUNT 5.9 /CUMM (4.8-10.8)
[2017-12-08 15:01] VITALS: BP 126/86
--- NOTE | 2017-12-08 15:16 | PN- Gen Med ---
Assessment/Plan Medical Assessment: 47 yr old M with PMH of HTN, OA, ETOH use disorder, anxiety, history of remote alcohol withdrawl seizure about 10yrs ago x 1 episode, presented with a ER for alcohol detox. Patient presented with CC of chronic neck pain, that was recently referred to pain management and MRI, however patient's mother stated the patient was drinking all the times for the past 3 days to self medicate himself for the chronic neck pain, and he has not been taking his meds. Pt was recently seen by DR Leonardo in the clinic for pain managment and according to pt plan was to do MRI and Physical therapy. His right neck pain started a few months ago with worsening in the last few weeks, w/ radiation to right arm with on/off tingling sensation. Patient had tried Flexril, Tylenol, Motrin however without any particular relief. Pt was drinking vodka and is a current everyday smoker. Complaining of headache and stiff neck currently and shoulder pain. Problem List: 1. Alcohol intoxication 2. Alcohol dependency 3. Cervical radiculopathy 4. Chronic neck and back pain Plan: ALcohol withdrawl and intoxication- cont on ciwa protocol. His ciwa score this am was from 0-7, will cont to taper ativan. will decrease the dose tomorrow. Will consult SW for rehab options. Nicotine dependence- cont on nicotine pactch. 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 Neck and shoulder pain- cont current management. MRI as outpt. Subjective Review of Systems Constitutional: Denies: chills, fever. Cardiovascular: Denies: chest pain, palpitations. Respiratory: Denies: cough, short of breath. Gastrointestinal: Denies: abdominal pain. Musculoskeletal: Reports: see HPI. Neurological/Psychological: Reports: depressed. Objective Last 24 Hrs of Vital Signs/I&O Vital Signs Date Time Temp Pulse Resp B/P B/P Pulse O2 O2 Flow FiO2 Mean Ox Delivery Rate 12/08 1501 98.4 70 20 126/86 93 12/08 1452 84 149/98 / 0956 72 160/110 / 0956 72 160/110 / 0800 Room Air 12/08 0654 97.5 70 16 148/100 92 Room Air 12/08 0400 98.3 58 16 160/90 06/02 0200 98.3 58 16 160/90 92 Room Air 12/07 2200 98.1 72 20 100/70 06/ 2200 98.1 72 20 100/70 91 Room Air / 2000 97.0 64 20 120/90 06/ 1803 96.7 78 20 130/91 94 Room Air / 1800 96.7 79 20 130/91 06 1600 98.6 77 20 110/80 Intake & Output 12/08 1600 12/08 0800 06 0000 Intake Total 600 920 Output Total 700 Balance 600 220 Intake, IV 20 Intake, Oral 600 900 Number 0 0 Bowel Movements Output, Urine 700 Physical Exam General Appearance: Alert, Oriented X3, Cooperative, No Acute Distress HEENT: Atraumatic, EOMI Neck: Supple Cardiovascular: Regular Rate, Normal S1, Normal S2 Lungs: Clear to Auscultation, Normal Air Movement Neurological: Normal Speech
[2017-12-08 22:36] VITALS: BP 146/98
[2017-12-09] VITALS (9 sets, daily range): BP systolic 127–160; BP diastolic 80–98
--- NOTE | 2017-12-09 08:38 | PN- Housestaff ---
See Addendum Subjective Follow-up For: Alcohol use disorder/withdrawal Subjective: CIWA 0-5 overnight. Patient reports mild tremors. Denies SI/HI, nausea, vomiting , neck pain, abdominal pain, urinary or bowel symptoms Review of Systems Constitutional: Reports: see HPI. Objective Last 24 Hrs of Vital Signs/I&O Vital Signs Date Time Temp Pulse Resp B/P B/P Pulse O2 O2 Flow FiO2 Mean Ox Delivery Rate 12/09 1013 98.4 74 20 127/89 100 /03 1000 98.4 74 20 127/89 /03 0821 70 136/80 06/03 0821 70 136/80 06/03 0645 97.6 58 16 136/88 93 Room Air / 0200 98.3 80 16 140/90 95 Room Air 06/ 0030 98.4 76 16 140/90 /03 0023 98.4 76 16 140/90 94 Room Air / 2236 98.1 84 18 146/98 97 Room Air 12/08 2027 86 144/90 /02 1501 98.4 70 20 126/86 93 06/02 1452 84 149/98 Intake & Output 12/09 1600 12/09 0800 12/09 0000 Intake Total 1600 480 Output Total Balance 1600 480 Intake, Oral 1600 480 Number 0 Bowel Movements Physical Exam General Appearance: Alert, Oriented X3, Cooperative, No Acute Distress Cardiovascular: Regular Rate, Normal S1, Normal S2 Lungs: Clear to Auscultation, Normal Air Movement Abdomen: Normal Bowel Sounds, Soft, No Tenderness Current Medications: Current Medications Sig/Romeo Start time Last Medication Dose Route Stop Time Status Admin Acetaminophen 650 MG Q8P PRN 12/06 2299 AC 12/07 PO 175 Clonidine 0.1 MG TID 12/05 2099 AC 12/09 PO 0821 Cyclobenzaprine HCl 5 MG .STK-MED ONE 12/09 0431 DC PO 12/09 043 Cyclobenzaprine HCl 5 MG BID PRN 12/05 1929 AC 12/09 PO 0435 Escitalopram Oxalate 10 MG QPM 12/05 2099 AC 12/08 PO 202 Folic Acid 1 MG DAILY 12/06 2229 AC 12/09 PO 0821 Gabapentin 300 MG Q8 12/05 2199 AC 12/09 PO 0539 Heparin Sodium 5,000 UNIT Q8 12/06 2199 AC 12/09 (Porcine) SC 0539 Lidocaine 1 PAT 0500 12/07 0500 AC 12/09 TOP 0435 Lorazepam 2 MG Q8 12/07 1400 AC 12/09 PO 0538 Lorazepam 0 Q1P PRN 12/06 2115 AC 12/07 IV 0426 Metoprolol Succinate 100 MG DAILY 12/06 0900 AC 12/09 PO 0821 Multivitamins 1 TAB DAILY 12/06 2230 AC 12/09 PO 0821 Nicotine 14 MG DAILY 12/05 1921 AC 12/09 TOP 0821 Thiamine HCl 100 MG DAILY 12/07 0900 AC 12/09 PO 0821 Assessment/Plan Assessment: Mr. Eddy is a 47-year-old gentleman with past medical history of alcohol abuse with 2 episodes of alcohol detox, one episode of benzo/alcohol withdrawal seizures and HTN who presents to the ED with alcohol withdrawal. Problem list: #Alcohol use disorder/withdrawal Plan: Monitor and replete magnesium and potassium PRN Continue Ativan per CIWA protocol Continue taper with Scheduled Ativan at 1.5 mg every 8 Continue MVI, thiamine, folate supplement Continue Nicotine patch Continue Lidoderm patch Continue cyclobenzaprine for spasms Continue Gabapentin, Escitalopram, and Metoprolol Diet: Regular DVT ppx: sc Lovenox Code: Full Problem List: 1. Alcohol intoxication Pain Ratin Pain Location: NA Pain Goal: Remain pain free Pain Plan: NA Tomorrow's Labs & Rationales: none
[2017-12-10] VITALS (8 sets, daily range): BP systolic 112–158; BP diastolic 80–100
--- NOTE | 2017-12-10 07:08 | PN- Housestaff ---
Subjective Follow-up For: Alcohol use disorder/withdrawal Subjective: Patient reports he feels much better and denies mentioning SI/HI. Upon discharge he states he will go to AA meeting at the [facility] near his house though he was unsuccessfully on last discharge. He denies nausea, vomiting, abdominal pain, urinary or bowel symptoms Review of Systems Constitutional: Reports: see HPI. Objective Last 24 Hrs of Vital Signs/I&O Vital Signs Date Time Temp Pulse Resp B/P B/P Pulse O2 O2 Flow FiO2 Mean Ox Delivery Rate 12/10 1456 98.6 66 20 130/90 06/04 1406 98.6 66 20 130/90 98 06/04 1125 98.2 06/ 1022 73 20 112/92 94 06/ 0835 98.0 82 16 138/100 06/04 0834 98.0 82 16 138/100 06/ 0800 98.0 82 16 138/88 / 0600 97.9 80 16 152/100 93 Room Air / 0200 98.0 76 16 140/86 94 Room Air / 2106 90 128/80 / 2022 98.8 90 20 128/80 90 Room Air / 1622 98.7 77 20 160/98 94 Room Air Intake & Output 12/10 1600 /04 0800 12/10 0000 Intake Total 200 480 Output Total Balance 200 480 Intake, Oral 200 480 Physical Exam General Appearance: Alert, Oriented X3, Cooperative, No Acute Distress Cardiovascular: Regular Rate, Normal S1, Normal S2 Lungs: Clear to Auscultation, Normal Air Movement Abdomen: Normal Bowel Sounds, Soft, No Tenderness Current Medications: Current Medications Sig/Romeo Start time Last Medication Dose Route Stop Time Status Admin Acetaminophen 650 MG Q8P PRN 12/06 2300 AC 12/07 PO 1757 Amlodipine Besylate 5 MG DAILY 12/10 1412 AC PO Clonidine 0.1 MG TID 12/05 2099 AC 12/10 PO 1456 Cyclobenzaprine HCl 5 MG BID PRN 12/05 193 AC 12/09 PO 210 Escitalopram Oxalate 10 MG QPM 12/05 2099 AC 12/09 PO 210 Folic Acid 1 MG DAILY 12/06 2229 AC 12/10 PO 0833 Gabapentin 300 MG Q8 12/05 2199 AC 12/10 PO 1456 Heparin Sodium 5,000 UNIT Q8 12/06 2199 AC 12/10 (Porcine) SC 1455 Lidocaine 1 PAT 0500 12/07 0500 AC 12/10 TOP 0835 Lorazepam 1 MG Q8 12/10 1400 AC 12/10 PO 1501 Lorazepam 1.5 MG Q8 12/09 1400 DC 12/10 PO 0507 Lorazepam 0 Q1P PRN 12/06 2115 AC 12/07 IV 0426 Metoprolol Succinate 100 MG DAILY 12/06 0900 AC 12/10 PO 0834 Multivitamins 1 TAB DAILY 12/06 2230 AC 12/10 PO 0833 Nicotine 14 MG DAILY 12/05 1921 AC 12/10 TOP 0835 Thiamine HCl 100 MG DAILY 12/07 0900 AC 12/10 PO 0833 Last 24 Hrs of Lab/Mayco Results Last 24 Hrs of Labs/Mics: Laboratory Tests 12/10/17 0716: Anion Gap 8, Estimated GFR > 60, BUN/Creatinine Ratio 8.6 Assessment/Plan Assessment: Mr. Eddy is a 47-year-old gentleman with past medical history of alcohol abuse with 2 episodes of alcohol detox, one episode of benzo/alcohol withdrawal seizures and HTN who presents to the ED with alcohol withdrawal. Problem list: #Alcohol use disorder/withdrawal Plan: Monitor and replete magnesium and potassium PRN Continue Ativan per CIWA protocol Continue taper with Scheduled Ativan at 1 mg every 8 Continue MVI, thiamine, folate supplement Continue Nicotine patch Continue Lidoderm patch Continue cyclobenzaprine for spasms Continue Gabapentin, Escitalopram, and Metoprolol Diet: Regular DVT ppx: sc Lovenox Code: Full Problem List: 1. Chronic neck pain 2. Alcohol intoxication Pain Ratin Pain Location: NA Pain Goal: Remain pain free Pain Plan: NA Tomorrow's Labs & Rationales: none
--- NOTE | 2017-12-10 11:36 | PN- Att Addend ---
Attending Addendum Attending Brief Note Patient seen and examined, overall doing well. She was scores are running low. Blood pressure was fluctuating. Agree with decreasing the dose of Ativan as he was scores are running low. We can add 5 mg of amlodipine for better control of the blood pressure. Continue Tylenol and Flexeril for neck pain control. Patient also on Lexapro. Patient will need criminal justice social worker evaluation. Patient on heparin subcutaneous for DVT prophylaxis.
[2017-12-11] VITALS (8 sets, daily range): BP systolic 124–153; BP diastolic 74–97
--- NOTE | 2017-12-11 08:37 | PN- Housestaff ---
Toshia Granado 12/11/17 0837: Subjective Follow-up For: Alcohol use disorder/withdrawal Subjective: Patient reports persistent neck pain. He also states that he has been approved for FMLA and is planning on using that for his pain management and physical therapy appointment, He also reports he has failed outpatient Gabapentin Review of Systems Constitutional: Reports: see HPI. Objective Last 24 Hrs of Vital Signs/I&O Vital Signs Date Time Temp Pulse Resp B/P B/P Pulse O2 O2 Flow FiO2 Mean Ox Delivery Rate 12/11 0546 98.1 79 20 134/88 93 Room Air 06/ 0000 98.5 81 20 124/80 12/10 2225 98.5 81 18 124/80 92 Room Air / 2200 98.5 81 18 124/80 12/10 2046 74 158/98 12/10 2000 74 20 158/98 / 1803 98.6 66 20 130/90 06/ 1456 98.6 66 20 130/90 06/04 1406 98.6 66 20 130/90 98 /04 1125 98.2 12/10 1022 73 20 112/92 94 Intake & Output 12/11 1600 12/11 0800 12/11 0000 Intake Total 120 Output Total Balance 120 Intake, Oral 120 Physical Exam General Appearance: Alert, Oriented X3, Cooperative, No Acute Distress Cardiovascular: Regular Rate, Normal S1, Normal S2 Lungs: Clear to Auscultation, Normal Air Movement Abdomen: Normal Bowel Sounds, Soft, No Tenderness Current Medications: Current Medications Sig/Romeo Start time Last Medication Dose Route Stop Time Status Admin Acetaminophen 650 MG Q8P PRN 12/06 2300 AC 12/11 PO 0803 Amlodipine Besylate 5 MG DAILY 12/10 1412 AC 12/10 PO 1803 Clonidine 0.1 MG TID 12/05 2099 AC 12/10 PO 204 Cyclobenzaprine HCl 5 MG BID PRN 12/05 1930 AC 12/09 PO 210 Escitalopram Oxalate 10 MG QPM 12/05 2099 AC 12/10 PO 204 Folic Acid 1 MG DAILY 12/06 223 AC 12/10 PO 0833 Gabapentin 300 MG Q8 12/05 2200 AC 12/11 PO 0557 Heparin Sodium 5,000 UNIT Q8 12/06 220 AC 12/11 (Porcine) SC 0557 Lidocaine 1 PAT 0500 12/07 0500 AC 12/11 TOP 0557 Lorazepam 0.5 MG Q8 12/11 1400 UNVr PO 12/17 1359 Lorazepam 1 MG Q8 12/10 1400 DC 12/11 PO 0557 Lorazepam 0 Q1P PRN 12/06 2115 AC 12/07 IV 0426 Metoprolol Succinate 100 MG DAILY 12/06 0900 AC 12/10 PO 0834 Multivitamins 1 TAB DAILY 12/06 2230 AC 12/10 PO 0833 Nicotine 14 MG DAILY 12/05 1921 AC 12/10 TOP 0835 Thiamine HCl 100 MG DAILY 12/07 0900 AC 12/10 PO 0833 Assessment/Plan Assessment: Mr. Eddy is a 47-year-old gentleman with past medical history of alcohol abuse with 2 episodes of alcohol detox, one episode of benzo/alcohol withdrawal seizures and HTN who presents to the ED with alcohol withdrawal. Problem list: #Alcohol use disorder/withdrawal Plan: Continue Ativan per CIWA protocol Continue taper with Scheduled Ativan at 0.5 mg every 8 Last dose of Ativan scheduled for tomorrow Continue MVI, thiamine, folate supplement Continue Nicotine patch Continue Lidoderm patch Continue cyclobenzaprine for spasms Continue Gabapentin, Escitalopram, and Metoprolol Diet: Regular DVT ppx: sc Lovenox Code: Full Problem List: 1. Chronic neck pain 2. Alcohol intoxication Pain Ratin Pain Location: neck Pain Goal: Pain 4 or less Pain Plan: Flexiril Tomorrow's Labs & Rationales: NONE Cash STOKES,[facility] 12/11/17 1244: Attending MD Review Statement Attending Statement Attending MD Statement: examined this patient, discuss w/resident/PA/HAIR TINTER, agreed w/resident/PA/HAIR TINTER, reviewed EMR data (avail), discussed with nursing, discussed with case mgmt, amended to note Attending Assessment/Plan: Patient seen and examined, continued to improve. CIWA scores are running low. Patient on Ativan taper. Vital signs are stable. We'll continue to taper Ativan. Had a lengthy discussion with patient about his outpatient follow-up for alcohol detox. Advised that should he should follow-up with IOP. Patient does not seem to be very interested but would like to speak with the forensic social worker. Continue the rest of the management. DVT px; hep sq. Possibl discharge home in am.
[2017-12-12 02:08] VITALS: BP 134/89
[2017-12-12 05:51] VITALS: BP 143/99
--- NOTE | 2017-12-12 07:39 | PN- Housestaff ---
See Addendum Subjective Follow-up For: Alcohol detox Subjective: Patient offers no complaints or acute events overnight Review of Systems Constitutional: Reports: see HPI. Objective Last 24 Hrs of Vital Signs/I&O Vital Signs Date Time Temp Pulse Resp B/P B/P Pulse O2 O2 Flow FiO2 Mean Ox Delivery Rate 12/12 0843 65 143/98 /06 0843 65 143/98 / 0843 65 143/98 /06 0551 98.3 66 20 143/99 98 Room Air 06/ 0208 98.3 72 18 134/89 93 Room Air 06/05 2211 98.2 73 153/97 94 Room Air 06/05 2200 98.2 73 18 153/97 06/05 1827 98.7 73 16 130/74 92 Room Air 06/05 1800 98.7 73 16 130/74 06/05 1422 80 130/80 06/05 1411 98.5 80 20 130/80 96 06/05 1040 97.9 74 20 140/90 98 Intake & Output 12/12 1600 12/12 0800 12/12 0000 Intake Total 360 800 Output Total Balance 360 800 Intake, Oral 360 800 Physical Exam General Appearance: Alert, Oriented X3, Cooperative, No Acute Distress Cardiovascular: Regular Rate, Normal S1, Normal S2 Lungs: Clear to Auscultation, Normal Air Movement Abdomen: Normal Bowel Sounds, Soft, No Tenderness Current Medications: Current Medications Sig/Romeo Start time Last Medication Dose Route Stop Time Status Admin Acetaminophen 650 MG Q8P PRN 12/06 2300 AC 12/11 PO 0803 Amlodipine Besylate 5 MG DAILY 12/10 1412 AC 12/12 PO 0843 Clonidine 0.1 MG TID 12/05 2100 AC 12/12 PO 0843 Cyclobenzaprine HCl 5 MG BID PRN 12/05 1930 AC 12/11 PO 1050 Escitalopram Oxalate 10 MG QPM 12/05 2100 AC 12/11 PO 2211 Folic Acid 1 MG DAILY 12/06 2230 AC 12/12 PO 0843 Gabapentin 300 MG Q8 12/05 2200 AC 12/12 PO 0533 Heparin Sodium 5,000 UNIT Q8 12/06 2200 AC 12/12 (Porcine) SC 0533 Lidocaine 1 PAT 0500 12/07 0500 AC 12/12 TOP 0533 Lorazepam 0.5 MG Q8 06/05 1400 AC 12/12 PO 12/17 1359 0533 Lorazepam 0 Q1P PRN 12/06 2115 AC 12/07 IV 0426 Metoprolol Succinate 100 MG DAILY 12/06 0900 AC 12/12 PO 0843 Multivitamins 1 TAB DAILY 12/06 2230 AC 12/12 PO 0843 Nicotine 14 MG DAILY 12/05 1921 AC 12/12 TOP 0843 Thiamine HCl 100 MG DAILY 12/07 0900 AC 12/12 PO 0843 Assessment/Plan Assessment: Mr. Eddy is a 47-year-old gentleman with past medical history of alcohol abuse with 2 episodes of alcohol detox, one episode of benzo/alcohol withdrawal seizures and HTN who presents to the ED with alcohol withdrawal. Problem list: #Alcohol use disorder/withdrawal Plan: Continue Ativan per CIMT protocol Continue taper with Scheduled Ativan at 0.5 mg X 1 DOSE Last dose of Ativan scheduled for tomorrow Continue MVI, thiamine, folate supplement Continue Nicotine patch Continue Lidoderm patch Continue cyclobenzaprine for spasms Continue Gabapentin, Escitalopram, and Metoprolol Diet: Regular DVT ppx: sc Lovenox Code: Full DISPO: APPT AT IOP TODAY AT 9:30 AM Problem List: 1. Alcohol intoxication Pain Ratin Pain Location: na Pain Goal: Remain pain free Pain Plan: na Tomorrow's Labs & Rationales: NONE
--- NOTE | 2017-12-12 08:23 | Discharge Summary ---
Visit Information Visit Dates Admission Date: 12/06/17 Discharge Date: 12/12/17 Hospital Course Course Attending Physician: Blanca Castrejon MD Primary Care Physician: Jorden STOKES,Dk Nelson [facility] Course: Mr. Eddy is a 47-year-old gentleman with past medical history of alcohol abuse with 2 episodes of alcohol detox, one episode of benzo/alcohol withdrawal seizures and HTN who presents to the ED with alcohol withdrawal. He was admitted to general medical floor for further evaluation and management #Alcohol use disorder/withdrawal Patient was given Ativan per CIWA protocol in addition to Scheduled Ativan that was eventually tapered. He was given MVI, thiamine, folate supplementation. He was discharged home and a scheduled appointment was made for him to [facility]Hypertension His blood pressure was persistently elevated despite being on antihypertensives. We added a low dose Amlodipine to his current regimen #Chronic medical conditions He was resumed on his home meds. He was given Nicotine patch for smoking cessation and cyclobenzaprine and a Lidoderm patch for muscle spasms. Allergies: Coded Allergies: No Known Allergies (11/09/15) Disposition Summary Disposition Principal Diagnosis: Alcohol detoxification/withdrawal Additional Diagnosis: Hypertension Discharge Disposition: home or self care Discharge Instructions General Discharge Information Code Status: Full Code Patient's Diet: Regular Patient's Activity: Full Follow-Up Instructions/Appts: Follow up with your PCP within 1 week of discharge Attend your appointment at the IOP today at 9:30 am AT [address] Medications at Discharge Discharge Medications: Continue taking these medications: Metoprolol Succ XL (Toprol XL) 100 MG TAB.ER.24H 1 Tablet ORAL DAILY Comments: Last Taken: 12/12/17 Time: 830AM Escitalopram Oxalate (Lexapro) 20 MG TABLET 1 Tablet ORAL Every night Comments: Last Taken: 12/11/17 Time: 22:11 Fluticasone/Salmeterol (Advair 250-50 Diskus) 1 EACH BLST.W.DEV 1 Puff Inhale through mouth DAILY Comments: PATIENT DID NOT TAKE IN HOSPITAL Gabapentin (Gabapentin) 100 MG CAPSULE 1 Capsule ORAL THREE TIMES DAILY as needed for ANXIETY Comments: Last Taken:12/12/17 Time:0530 AM Gluc 2KCL/Chondr/Cecile Hy/Hy AC (Glucosamine & Chondroitin Cap) 375 MG-300 MG-175 MG-2 MG CAPSULE 1 Tablet ORAL DAILY Comments: NOT GIVEN IN HOSPITAL Cholecalciferol (Vitamin D3) (Vitamin D) 2,000 UNIT CAPSULE 1 Capsule ORAL DAILY Qty = 60 Comments: DID NOT ADMINISTER IN HOSPITAL Multiple Vitamin (Multivitamins) 1 EACH TABLET 1 Tablet ORAL DAILY Qty = 30 Comments: Last Taken: 12/12/17 Time: 830AM Lidocaine (Lidocaine) 5 % ADH..PATCH 1 Patch On the skin DAILY Qty = 30 Comments: Last Taken: 12/12/17 Time: 900AM Thiamine HCl (Vitamin B-1) 50 MG TABLET 50 Milligram ORAL DAILY Qty = 30 Instructions: . Comments: Last Taken: 12/12/17 Time: 830AM Folic Acid (Folic Acid) 1 MG TABLET 1 Milligram ORAL DAILY Qty = 30 Instructions: . Comments: Last Taken: 12/12/17 Time: 830AM Omeprazole (Omeprazole) 20 MG CAPSULE.DR 40 Milligram ORAL DAILY BEFORE BREAKFAST Qty = 14 Instructions: . Comments: DID NOT TAKE MEDICATION Nicotine (Nicotine Patch) 14 MG/24 HOUR PATCH.TD24 14 Milligram On the skin DAILY Qty = 7 Instructions: . Comments: Last Taken: 12/12/17 Time: 830AM Cyclobenzaprine HCl (Cyclobenzaprine HCl) 5 MG TABLET 5 Milligram ORAL TWICE DAILY as needed for neck pain Qty = 10 Instructions: . Comments: Last Taken:12/11/17 Time:10:50 AM Clonidine HCl (Catapres) 0.1 MG TABLET 0.1 Milligram ORAL THREE TIMES DAILY Qty = 21 Comments: Last Taken: 12/24/17 Time: 0830 Start taking the following new medications: Amlodipine Besylate (Amlodipine Besylate) 5 MG TABLET 5 Milligram ORAL DAILY Qty = 30 No Refills Comments: Last Taken:12/12/17 Time:0830 AM Copies To: Dk Leonardo MD
[2017-12-12 08:43] VITALS: BP 143/98
[2017-12-12] MEDS ORDERED: AMLODIPINE BESYL5 M1 PO (08:44)
--- NOTE | 2017-12-12 08:45 | Patient Discharge Instructions ---
Discharge Instructions General Discharge Information You were seen/treated for: Alcohol detox Special Instructions: Follow up with your PCP within 1 week of discharge Attend your appointment at the [facility] today at 9:30 am AT [address] Diet Continue normal diet: Yes Activity Full Activity/No Limits: Yes Acute Coronary Syndrome Inclusion Criteria At DC or during hospital stay patient has or had the following: ACS DIAGNOSIS No Discharge Core Measures Meds if any: Prescribed or Continued at Discharge Meds if any: NOT Prescribed or Continued at Discharge Congestive Heart Failure Inclusion Criteria At DC or during hospital stay patient has or had the following: CHF DIAGNOSIS No Discharge Core Measures Meds if any: Prescribed or Continued at Discharge Meds if any: NOT Prescribed or Continued at Discharge Cerebrovascular accident Inclusion Criteria At DC or during hospital stay patient has or had the following: CVA/TIA Diagnosis No Discharge Core Measures Meds if any: Prescribed or Continued at Discharge Meds if any: NOT Prescribed or Continued at Discharge Venous thromboembolism Inclusion Criteria VTE Diagnosis No VTE Type NONE VTE Confirmed by (Test) NONE Discharge Core Measures - Per Current guidelines, there needs to be overlap - treatment for the first 5 days of Warfarin therapy. - If discharged on Warfarin prior to 5 days of - overlap therapy, the patient will need to be - assessed for post discharge needs including - *Post discharge parental anticoagulation - *Warfarin and/or parental anticoagulation education - *Follow up date to check INR post discharge At least 5 days overlap therapy as Inpatient No Meds if any: Prescribed or Continued at Discharge Note: Overlap Therapy is Warfarin and Anticoagulant Meds if any: NOT Prescribed or Continued at Discharge
[2017-12-13] MEDS ORDERED: AMLODIPINE BESYL5 M1 PO (16:31)
== END 2017-12-12 10:05 | DRG 775 ==
LOC: ERH 17:27 → ERHI 12-06 18:25 → 2NA 12-06 18:25 → ENRESERV 12-06 19:38 → ENTRNSPT 12-06 20:02 → 2NA 12-06 20:21 → CMPTRNSPT 12-06 20:41 → EDTRNSPT 12-06 20:41 → 2NA 12-07 08:11 → ENPENDDIS 12-12 08:55 → 2NA 12-12 10:05
PROVIDERS: Emergency Medicine; Student in an Organized Health Care Education/Training Program
DX: F10.239 Alcohol dependence with withdrawal, unspecified (principal); Y90.8 Blood alcohol level of 240 mg/100 ml or more; G89.29 Other chronic pain; I10 Essential (primary) hypertension; M19.90 Unspecified osteoarthritis, unspecified site; F41.9 Anxiety disorder, unspecified; R74.0 Nonspecific elevation of levels of transaminase and lactic acid dehydrogenase [LDH]; F17.290 Nicotine dependence, other tobacco product, uncomplicated; M54.12 Radiculopathy, cervical region
CPT/HCPCS: 2NAP; 36592; 80307; 82436; G0463; G0480; J1644; J2060; J3101; J3490; J7508

== ENCOUNTER 2017-12-21 14:40 | Inpatient (IN) | payer OTHER ==
[~2017-12-21] VITALS: Ht 170.2 cm; Wt 83.9 kg
[~2017-12-21 14:40] MED LIST changes: +AMLODIPINE BESYL5 M1 PO
[2017-12-21 14:55] VITALS: BP 171/119
--- NOTE | 2017-12-21 15:24 | ED GENERAL ADULT ---
History of Present Illness General Chief Complaint: ETOH/Drug Related Complaint Stated Complaint: ALCOHOL WITHDRAWL Source: patient Exam Limitations: no limitations Vital Signs & Intake/Output Vital Signs & Intake/Output Vital Signs Date Time Temp Pulse Resp B/P B/P Pulse O2 O2 Flow FiO2 Mean Ox Delivery Rate 12/21 2308 98.9 12/21 230 90 150/100 12/21 2106 100.0 90 18 150/100 12/21 2106 94.0 90 18 150/100 12/21 2106 100.0 90 18 150/100 94 Room Air 12/210 163/102 12/21 2028 99.3 97 24 163/102 98 Room Air 12/21 2020 172/101 12/21 1934 99.5 95 18 175/101 12/21 1934 99.5 95 18 175/101 95 Room Air 12/21 1737 99.0 85 23 169/109 12/21 1735 99.0 83 23 169/109 98 Room Air 12/21 1545 98.7 84 24 171/105 12/21 1541 83 24 171/105 96 Room Air 12/21 1455 97.6 92 18 171/119 12/21 1451 98.9 92 18 171/119 96 Room Air ED Intake and Output 12/22 0000 12/21 1200 Intake Total 100 Output Total Balance 100 Intake, Oral 100 Patient 186 lb Weight Weight Reported by Patient Measurement Method Allergies Coded Allergies: No Known Allergies (11/09/15) Reconcile Medications Amlodipine Besylate 5 MG TABLET 5 MG PO DAILY High blood pressure . Cholecalciferol (Vitamin D3) (Vitamin D) 2,000 UNIT CAPSULE 1 CAP PO DAILY SUPPLEMENT (Reported) Clonidine HCl (Catapres) 0.1 MG TABLET 0.1 MG PO TID blodd pressure Cyclobenzaprine HCl 5 MG TABLET 5 MG PO BID PRN neck pain . Escitalopram Oxalate (Lexapro) 20 MG TABLET 1 TAB PO QPM ANXIETY (Reported) Fluticasone/Salmeterol (Advair 250-50 Diskus) 1 EACH BLST.W.DEV 1 PUF INH DAILY RESP. (Reported) Folic Acid 1 MG TABLET 1 MG PO DAILY vitamin supplement . Gabapentin 300 MG CAPSULE 1 CAP PO TID ANXIETY (Reported) Gluc 2KCL/Chondr/Cecile Hy/Hy AC (Glucosamine & Chondroitin Cap) 375 MG-300 MG-175 MG-2 MG CAPSULE 1 TAB PO DAILY SUPPLEMENT (Reported) Lidocaine 5 % ADH..PATCH 1 PAT TOP DAILY Back pain Metoprolol Succ XL (Toprol XL) 100 MG TAB.ER.24H 1 TAB PO DAILY BP (Reported) Multiple Vitamin (Multivitamins) 1 EACH TABLET 1 TAB PO DAILY Supplement Naproxen 500 MG TABLET 1 TAB PO BID PAIN/INFLAMMATION (Reported) Nicotine (Nicotine Patch) 14 MG/24 HOUR PATCH.TD24 14 MG TOP DAILY SMOKING CESSATION . Omeprazole 20 MG CAPSULE.DR 40 MG PO DAILY AC ACID REFLUX . Thiamine HCl (Vitamin B-1) 50 MG TABLET 50 MG PO DAILY vitamin supplement . Triage Note: PT STATES HE STOPPED DRINKING YESTERDAY AND HE IS DETOXING BAD. PT STATES HE HAS NAUSEA AND IS SWEATING. PT CALLED HIS PCP BECAUSE HE WANTED TO DETOX FROM ETOH AT HOME BUT WAS TOLD TO COME TO THE ED. PT'S LAST DRINK WAS YESTERDAY AT [facility]. PT STATES HE HAS HAD SEIZURES FROM ETOH WITHDRAWEL PT SHAKING IN TRIAGE. PT DENIES SI/HI. PT DENIES DRUG USE. Triage Nurses Notes Reviewed? yes Onset: Gradual Duration: day(s): Timing: recent history Injury Environment: home Severity: moderate HPI: 27-year-old male with history of alcohol abuse, hypertension presents emergency department for alcohol withdrawal. Patient's last drink was yesterday, he typically drinks 750ML-1 PINT. Patient has a history of seizures related to alcohol withdrawal several years ago. Currently patient reports sweating, shaking, nausea. Patient also reports chest tightness left chest. Patient denies SI/HI, drug use, abdominal pain, dyspnea. (Shelia CARLISLE,Tayler Mantilla) Past History Travel History Traveled to [place] past 21 day No Medical History Any Pertinent Medical History? see below for history Neurological: seizure EENT: NONE Cardiovascular: hypertension Respiratory: NONE Gastrointestinal: NONE Hepatic: NONE Renal: NONE Musculoskeletal: osteoarthritis, spinal stenosis Psychiatric: anxiety, Alcohol use disorder Endocrine: NONE Blood Disorders: NONE Cancer(s): NONE PROMOTION SPECIALIST/Reproductive: NONE History of MRSA: No History of VRE: No History of CDIFF: No Tetanus Vaccine: 11/09/15 Surgical History Surgical History: N Psychosocial History Who do you live with Mother Services at Home None What is your primary language Croatian Tobacco Use: Current Daily Use Daily Tobacco Use Amount/Type: => 5 Cigarettes daily ETOH Use: alcoholic Illicit Drug Use: denies illicit drug use Family History Hx Contributory? No (Tayler Hart) Review of Systems Review of Systems Constitutional: Reports: see HPI. EENTM: Reports: no symptoms. Respiratory: Reports: no symptoms. Cardiovascular: Reports: see HPI. GI: Reports: see HPI. Genitourinary: Reports: no symptoms. Musculoskeletal: Reports: no symptoms. Skin: Reports: no symptoms. Neurological/Psychological: Reports: see HPI. Hematologic/Endocrine: Reports: no symptoms. Immunologic/Allergic: Reports: no symptoms. All Other Systems: Reviewed and Negative (Tayler Hart) Physical Exam Physical Exam General Appearance: well developed/nourished, alert, awake, uncomfortable, tremulous Head: atraumatic, normal appearance Eyes: Bilateral: normal appearance. Ears, Nose, Throat: hearing grossly normal Neck: normal inspection, supple, full range of motion Respiratory: normal breath sounds, no respiratory distress, lungs clear Cardiovascular: regular rate/rhythm, normal peripheral pulses Peripheral Pulses: 2+ radial (R), 2+ radial (L) Gastrointestinal: normal bowel sounds, soft, no organomegaly, RUQ, LUQ tenderness Back: normal inspection, normal range of motion Extremities: normal inspection, normal range of motion Neurologic/Psych: awake, alert, oriented x 3 Skin: intact, normal color, warm/dry, old ecchymosis to left lower abdomen Core Measures ACS in differential dx? Yes CVA/TIA Diagnosis: No Sepsis Present: No Sepsis Focused Exam Completed? No (Tayler Hart) Progress Differential Diagnoses I considered the following diagnoses in my evaluation of the patient: [Alcohol abuse, alcohol withdrawal, electrolyte abnormality, drug abuse] Plan of Care: Orders Procedure Date/time Status Heart Healthy Diet 12/22 B Active Code Status 12/21 235 Active TROPONIN LEVEL 12/21 235 Active EKG 12/21 235 Active Weight 12/21 2106 Active Vital Signs 12/21 2106 Active Teach/Educate 12/21 2106 Active Pain Treatment and Response 12/21 2106 Active Nutritional Intake, Monitor 12/21 2106 Active Isolation 12/21 2106 Active Intake & Output 12/21 2106 Active Patient Care Conference 12/21 2106 Active Activity/Ambulation 12/21 2106 Active Pathway - chart 12/21 2030 Active House Staff 12/21 2030 Active Patient Data 12/21 2030 Active CASE MANAGEMENT CONSULT 12/21 2030 Active Patient Data 12/21 2001 Active Saline Lock 12/21 1950 Active Misc Message 12/21 1950 Active ED Holding Orders 12/21 1950 Active Admit to inpatient 12/21 1950 Active Vital Signs 12/21 1950 Active Code Status 12/21 1950 Complete Intake & Output 12/21 1542 Active TROPONIN LEVEL 12/21 1525 Complete Telemetry/Hearing Therapy Director 12/21 1504 Complete CIWA 12/21 1453 Active EKG 12/21 1453 Active URINE DRUG SCREEN FOR ER ONLY 12/21 1452 Complete LIPASE 12/21 1452 Complete ETHANOL 12/21 1452 Complete COMPREHENSIVE METABOLIC PANEL 12/21 1452 Complete CBC WITHOUT DIFFERENTIAL 12/21 1452 Complete EKG 12/21 0600 Active VTE Mechanical Prophylaxis 12/21 UNK Active Vital Signs 12/21 UNK Complete CIWA 12/21 UNK Complete Current Medications Sig/Romeo Start time Last Medication Dose Stop Time Status Admin Lorazepam 1 MG Q6H 12/24 0000 AC 12/21 (Ativan) 12/24 1201 2040 Enoxaparin Sodium 40 MG DAILY 12/22 0900 AC (Lovenox) Escitalopram Oxalate 10 MG DAILY 12/22 0900 AC (Lexapro) Metoprolol Succinate 100 MG DAILY 12/22 0900 AC (Toprol Xl) Nicotine 14 MG DAILY 12/22 0900 UNVr (Nicotine Cq) Omeprazole 40 MG DAILY AC 12/22 0700 CAN (Prilosec) Lorazepam 1.5 MG Q6 12/22 0600 AC (Ativan) 12/22 1801 Pantoprazole Sodium 40 MG DAILY 12/21 2345 UNVr (Protonix) Cyanocobalamin/ 1 BAG DAILY@2200 12/21 2200 AC 12/21 Thiamine/Pyridoxine 12/24 0559 2302 (Vitamin in I.V.) Dextrose/Water 1,000 ML (D5W 1000) Clonidine 0.1 MG TID 12/21 2100 AC 12/21 (Catapres) 2040 Gabapentin 300 MG TID 12/21 2100 AC 12/21 (Neurontin) 2040 Morphine Sulfate 2 MG Q4P PRN 12/21 2100 AC (MORPHINE SULFATE) Ibuprofen 600 MG Q6P PRN 12/21 2030 AC 12/21 (Motrin) 2302 Lidocaine 1 PAT Q24H 12/21 2029 AC 12/21 (Lidoderm) 2301 Lorazepam 1 MG Q1P PRN 12/21 2029 AC 12/21 (Ativan) 2041 Ondansetron HCl 4 MG Q6P PRN 12/21 2029 AC 12/21 (Zofran) 213 Folic Acid 1 MG DAILY 12/21 2025 AC 12/21 (Folic Acid) 12/23 0901 230 Multivitamins 1 TAB DAILY 12/21 2025 AC 12/21 (Theragran Vitamins) 230 Thiamine HCl 100 MG DAILY 12/21 2025 AC 12/21 (Vitamin B1) 12/23 0901 2301 Amlodipine Besylate 5 MG DAILY 12/22 2015 AC 12/21 (Norvasc) 230 Laboratory Tests 12/21/17 1642: Urine Opiates Screen < 100, Methadone Screen 43, Barbiturate Screen < 60, Ur Phencyclidine Scrn < 6.00, Amphetamines Screen < 100, U Benzodiazepines Scrn < 85, Urine Cocaine Screen < 50, Urine Cannabis Screen < 5.00 12/21/17 1525: Anion Gap 16, Estimated GFR > 60, BUN/Creatinine Ratio 21.4, Glucose 185 H, Calcium 8.7, Total Bilirubin 0.6, AST 93 H, ALT 100 H, Alkaline Phosphatase 70 , Troponin I < 0.01, Total Protein 7.2, Albumin 4.0, Globulin 3.2, Albumin/ Globulin Ratio 1.3, Lipase 392 H, CBC w Diff NO MAN DIFF REQ, RBC 5.18, MCV 92.7, MCH 31.8 H, MCHC 34.3, RDW 13.3, MPV 8.1, Gran % 70.1, Lymphocytes % 20.1 L, Monocytes % 9.3, Eosinophils % 0.2, Basophils % 0.3, Absolute Granulocytes 8.6 H, Absolute Lymphocytes 2.5, Absolute Monocytes 1.1 H, Absolute Eosinophils 0, Absolute Basophils 0, Serum Alcohol < 10.0 12/21/17 1453: Troponin I Cancelled 12/21/17 0600: Sodium Cancelled, Potassium Cancelled, Chloride Cancelled, Carbon Dioxide Cancelled, Anion Gap Cancelled, BUN Cancelled, Creatinine Cancelled, BUN/ Creatinine Ratio Cancelled, Total Bilirubin Cancelled, Direct Bilirubin Cancelled, AST Cancelled, ALT Cancelled, Alkaline Phosphatase Cancelled, Troponin I Cancelled, Total Protein Cancelled, Albumin Cancelled, CBC w Diff Cancelled, WBC Cancelled, RBC Cancelled, Hgb Cancelled, Hct Cancelled, MCV Cancelled, MCH Cancelled, MCHC Cancelled, RDW Cancelled, Plt Count Cancelled, MPV Cancelled Patient denies alcohol level of 0 initial CIWA score of 18. Patient medicated and given this abnormality. Patient is complaining of chest tightness. EKG is stable, no acute ischemic changes, troponin enzyme is negative. Urine drug screen is negative. Spoke with hospitalist Dr. Galvez regarding this patient's admission. Diagnostic Imaging: Viewed by Me: Radiology Read. Discussed w/RAD: Radiology Read. CXR Impression: PATIENT: BOO MCCARTY PRESENT AGE: 47 PATIENT ACCOUNT NO: [id number] : 69 LOCATION: [facility] ORDERING PHYSICIAN: Tayler CARLISLE SERVICE DATE: 12/21/17 EXAM TYPE: RAD - XRY- PORTABLE CHEST XRAY EXAMINATION: XR PORTABLE CHEST CLINICAL INFORMATION: Chest pain. Assess for cardiopulmonary process. COMPARISON: Chest x-ray 10/24/2017. TECHNIQUE: Portable 80 degrees semierect frontal view of the chest was obtained. FINDINGS: The lung lea are well-expanded. There are linear areas of opacity in the left mid/lower zone laterally, consistent with scarring or atelectasis, demonstrated on prior imaging. The remaining lung lea are clear. The cardiac silhouette is normal. There are no pleural effusions or pneumothorax. The central pulmonary vasculature is normal. The hilar regions appear normal. There are no acute osseous findings. IMPRESSION: 1. The study redemonstrates linear opacities in the left mid/lower zone laterally consistent with scarring or atelectasis. 2. There are no acute cardiopulmonary findings. DICTATED BY: Daniel Hui MD DATE/TIME DICTATED:12/21/171607 OFFICE MESSENGER HELPER:NAV DATE/ TIME TRANSCRIBED:12/21/171607 CONFIDENTIAL, DO NOT COPY WITHOUT APPROPRIATE AUTHORIZATION. <Electronically signed in Other Vendor System> SIGNED BY: Daniel Hui MD 12/21/17 0684 Initial ED EKG: SINUS RHYTHM @79BPM, NONSPECIFIC ST CHANGES Prior EKG: unchanged (10/24/17) (Tayler Hart) Departure Departure Disposition: STILL A PATIENT Condition: Stable Clinical Impression Primary Impression: Alcohol dependence with withdrawal Qualifiers: Complication of substance-induced condition: with unspecified complication Qualified Code: F10.239 - Alcohol dependence with withdrawal, unspecified Secondary Impressions: Chest pain Qualifiers: Chest pain type: unspecified Qualified Code: R07.9 - Chest pain, unspecified Referrals: Jorden STOKES,Dk Nelson (PCP/Family) Departure Forms: Customer Survey General Discharge Information Admission Note Spoke With: Shanel Galvez MD Documentation of Exam: Documentation of any treatments & extenuating circumstances including Concerns Regarding Discharge (functional status, medication knowledge or non-compliance, living conditions, etc.) that warrant an admission rather than observation: [ Patient at least history with previous seizures related to alcohol withdrawal, going through alcohol withdrawal currently with elevated CIWA scores requiring IV ativan, chest pain requiring telemetry monitoring, premature discharge medically unsafe] (Tayler Hart) PA/INFANT AND TODDLER TEACHER Co-Sign Statement Statement: ED Attending supervision documentation- [X] I saw and evaluated the patient. I have also reviewed all the pertinent lab results and diagnostic results. I agree with the findings and the plan of care as documented in the PA's/INFANT AND TODDLER TEACHER's documentation. 12/21/17, 19:42... Pt comfortable after ativan with minimal tremors, high ciwa score, merits admission for parenteral benzos, further management. [] I have reviewed the ED Record and agree with the PA's/INFANT AND TODDLER TEACHER's documentation. [] Additions or exceptions (if any) to the PAs/INFANT AND TODDLER TEACHER's note and plan are summarized below: [] (Vinny STOKES,Pelon Resendiz) Critical Care Note Critical Care Note Critical Care Time: non-applicable (Tayler Hart)
[2017-12-21 15:30] LABS: ABSOLUTE BASOPHIL COUNT 0 /CUMM (0.0-0.2); ABSOLUTE EOSINOPHIL COUNT 0 /CUMM (0.0-0.7); ABSOLUTE GRANULOCYTE CT 8.6 /CUMM (1.4-6.5); ABSOLUTE LYMPH COUNT 2.5 /CUMM (1.2-3.4); ABSOLUTE MONOCYTE COUNT 1.1 /CUMM (0.10-0.60); BASOPHIL % 0.3 % (0.0-2.0); EOSINOPHIL % 0.2 % (0-5); GRANULOCYTE % 70.1 % (42.2-75.2); MEAN CORPUSCULAR HGB 31.8 PG (27.0-31.0); MEAN CORPUSCULAR HGB CONC 34.3 G/DL (33.0-37.0); MEAN CORPUSCULAR VOLUME 92.7 FL (80.0-94.0); MEAN PLATELET VOLUME 8.1 FL (7.4-10.4); PLATELET COUNT 296 /CUMM (130-400); RBC DISTRIBUTION WIDTH 13.3 % (11.5-14.5); RED BLOOD CELL CT 5.18 /CUMM (4.70-6.10); WHITE BLOOD CELL COUNT 12.3 /CUMM (4.8-10.8)
[2017-12-21 15:45] VITALS: BP 171/105
--- NOTE | 2017-12-21 16:14 | RADIOLOGY REPORT ---
EXAMINATION: XR PORTABLE CHEST CLINICAL INFORMATION: Chest pain. Assess for cardiopulmonary process. COMPARISON: Chest x-ray 10/24/2017. TECHNIQUE: Portable 80 degrees semierect frontal view of the chest was obtained. FINDINGS: The lung lea are well-expanded. There are linear areas of opacity in the left mid/lower zone laterally, consistent with scarring or atelectasis, demonstrated on prior imaging. The remaining lung lea are clear. The cardiac silhouette is normal. There are no pleural effusions or pneumothorax. The central pulmonary vasculature is normal. The hilar regions appear normal. There are no acute osseous findings. IMPRESSION: 1. The study redemonstrates linear opacities in the left mid/lower zone laterally consistent with scarring or atelectasis. 2. There are no acute cardiopulmonary findings.
[2017-12-21 17:37] VITALS: BP 169/109
[2017-12-21] MEDS ORDERED: GABAPENTIN300 M2 PO (18:41)
[2017-12-21] MEDS ORDERED: NAPROXEN500 M2 PO (18:41)
[2017-12-21 19:34] VITALS: BP 175/101
--- NOTE | 2017-12-21 19:51 | History & Physical ---
General Information and HPI Allergies/Medications Allergies: Coded Allergies: No Known Allergies (11/09/15) Home Med list Amlodipine Besylate 5 MG TABLET 5 MG PO DAILY High blood pressure . Cholecalciferol (Vitamin D3) (Vitamin D) 2,000 UNIT CAPSULE 1 CAP PO DAILY SUPPLEMENT (Reported) Clonidine HCl (Catapres) 0.1 MG TABLET 0.1 MG PO TID blodd pressure Cyclobenzaprine HCl 5 MG TABLET 5 MG PO BID PRN neck pain . Escitalopram Oxalate (Lexapro) 20 MG TABLET 1 TAB PO QPM ANXIETY (Reported) Fluticasone/Salmeterol (Advair 250-50 Diskus) 1 EACH BLST.W.DEV 1 PUF INH DAILY RESP. (Reported) Folic Acid 1 MG TABLET 1 MG PO DAILY vitamin supplement . Gabapentin 300 MG CAPSULE 1 CAP PO TID ANXIETY (Reported) Gluc 2KCL/Chondr/Cecile Hy/Hy AC (Glucosamine & Chondroitin Cap) 375 MG-300 MG-175 MG-2 MG CAPSULE 1 TAB PO DAILY SUPPLEMENT (Reported) Lidocaine 5 % ADH..PATCH 1 PAT TOP DAILY Back pain Metoprolol Succ XL (Toprol XL) 100 MG TAB.ER.24H 1 TAB PO DAILY BP (Reported) Multiple Vitamin (Multivitamins) 1 EACH TABLET 1 TAB PO DAILY Supplement Naproxen 500 MG TABLET 1 TAB PO BID PAIN/INFLAMMATION (Reported) Nicotine (Nicotine Patch) 14 MG/24 HOUR PATCH.TD24 14 MG TOP DAILY SMOKING CESSATION . Omeprazole 20 MG CAPSULE.DR 40 MG PO DAILY AC ACID REFLUX . Thiamine HCl (Vitamin B-1) 50 MG TABLET 50 MG PO DAILY vitamin supplement . 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
--- NOTE | 2017-12-21 20:04 | History & Physical ---
BrilaurasanaPrincessangel luis 12/21/172002: General Information and HPI History of Present Illness: Mr. Eddy is a 47-year-old M, current smoker (1/2 PPD x 20 yrs) with past medical history of alcohol use disorder, one episode of benzo/alcohol withdrawal seizures, multiple admissions for alcohol withdrawal, chronic neck pain, HTN who presents to the ED with alcohol withdrawal. Patient reports after previous discharge 12/12/17, he went for his scheduled appointment at an [facility] at [address] [place] [address]. he then went back to work and that Sunday of he began to drink again. He normally drinks 1 pint of vodka and his last drink has yesterday at noon. He then reports he had a sudden onset of left sided abdominal pain, back pain and left arm numbness. Subsequently he was dry heaving and had bilateral upper extremity tremors. He also reports shortness of breath with deep inspiration, night sweats and chills. Since discharge he has cut down his smoking to 3-5 cigarettes per day and uses his nicotine patch. He denies fever, chills, jerky movements, urinary or bowel incontinence, SI/HI, hallucinations. In the ED he was hypertensive, his CIWA scores ranged from 2-19, he was given IV Lorazepam 2 mg x 1 dose, Labetalol 5 mg x 1 dose and Ondansetron 4 mg x 1 dose Allergies/Medications Allergies: Coded Allergies: No Known Allergies (11/09/15) Home Med list Amlodipine Besylate 5 MG TABLET 5 MG PO DAILY High blood pressure . Cholecalciferol (Vitamin D3) (Vitamin D) 2,000 UNIT CAPSULE 1 CAP PO DAILY SUPPLEMENT (Reported) Clonidine HCl (Catapres) 0.1 MG TABLET 0.1 MG PO TID blodd pressure Cyclobenzaprine HCl 5 MG TABLET 5 MG PO BID PRN neck pain . Escitalopram Oxalate (Lexapro) 20 MG TABLET 1 TAB PO QPM ANXIETY (Reported) Fluticasone/Salmeterol (Advair 250-50 Diskus) 1 EACH BLST.W.DEV 1 PUF INH DAILY RESP. (Reported) Folic Acid 1 MG TABLET 1 MG PO DAILY vitamin supplement . Gabapentin 300 MG CAPSULE 1 CAP PO TID ANXIETY (Reported) Gluc 2KCL/Chondr/Cecile Hy/Hy AC (Glucosamine & Chondroitin Cap) 375 MG-300 MG-175 MG-2 MG CAPSULE 1 TAB PO DAILY SUPPLEMENT (Reported) Lidocaine 5 % ADH..PATCH 1 PAT TOP DAILY Back pain Metoprolol Succ XL (Toprol XL) 100 MG TAB.ER.24H 1 TAB PO DAILY BP (Reported) Multiple Vitamin (Multivitamins) 1 EACH TABLET 1 TAB PO DAILY Supplement Naproxen 500 MG TABLET 1 TAB PO BID PAIN/INFLAMMATION (Reported) Nicotine (Nicotine Patch) 14 MG/24 HOUR PATCH.TD24 14 MG TOP DAILY SMOKING CESSATION . Omeprazole 20 MG CAPSULE.DR 40 MG PO DAILY AC ACID REFLUX . Thiamine HCl (Vitamin B-1) 50 MG TABLET 50 MG PO DAILY vitamin supplement . 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 Exam & Diagnostic Data Last 24 Hrs of Vital Signs/I&O Vital Signs Date Time Temp Pulse Resp B/P B/P Pulse O2 O2 Flow FiO2 Mean Ox Delivery Rate 12/21 1933 99.5 95 18 175/101 12/21 1933 99.5 95 18 175/101 95 Room Air 12/21 1737 99.0 85 23 169/109 12/21 1735 99.0 83 23 169/109 98 Room Air 12/21 1545 98.7 84 24 171/105 12/21 1541 83 24 171/105 96 Room Air 12/21 1455 97.6 92 18 171/119 12/21 1451 98.9 92 18 171/119 96 Room Air Intake & Output 12/21 1600 12/21 0800 12/21 0000 Intake Total Output Total Balance Patient 180 lb Weight Weight Reported by Patient Measurement Method Physical Exam General Appearance Alert, Oriented X3, Cooperative, No Acute Distress Skin No Significant Lesion Cardiovascular Regular Rate, Normal S1, Normal S2 Lungs Clear to Auscultation, Normal Air Movement Abdomen left-sided epigastric and abdominal tenderness Extremities No Edema, BUE tremors. No flapping tremors noted Last 24 Hrs of Labs/Mayco: Laboratory Tests 12/21/17 1642: Urine Opiates Screen < 100, Methadone Screen 43, Barbiturate Screen < 60, Ur Phencyclidine Scrn < 6.00, Amphetamines Screen < 100, U Benzodiazepines Scrn < 85, Urine Cocaine Screen < 50, Urine Cannabis Screen < 5.00 12/21/17 1525: Anion Gap 16, Estimated GFR > 60, BUN/Creatinine Ratio 21.4, Glucose 185 H, Calcium 8.7, Total Bilirubin 0.6, AST 93 H, ALT 100 H, Alkaline Phosphatase 70 , Troponin I < 0.01, Total Protein 7.2, Albumin 4.0, Globulin 3.2, Albumin/ Globulin Ratio 1.3, Lipase 392 H, CBC w Diff NO MAN DIFF REQ, RBC 5.18, MCV 92.7, MCH 31.8 H, MCHC 34.3, RDW 13.3, MPV 8.1, Gran % 70.1, Lymphocytes % 20.1 L, Monocytes % 9.3, Eosinophils % 0.2, Basophils % 0.3, Absolute Granulocytes 8.6 H, Absolute Lymphocytes 2.5, Absolute Monocytes 1.1 H, Absolute Eosinophils 0, Absolute Basophils 0, Serum Alcohol < 10.0 12/21/17 1453: Troponin I Cancelled Diagnostic Data CXR Results FINDINGS: The lung lea are well-expanded. There are linear areas of opacity in the left mid/lower zone laterally, consistent with scarring or atelectasis, demonstrated on prior imaging. The remaining lung lea are clear. The cardiac silhouette is normal. There are no pleural effusions or pneumothorax. The central pulmonary vasculature is normal. The hilar regions appear normal. There are no acute osseous findings. IMPRESSION: 1. The study redemonstrates linear opacities in the left mid/lower zone laterally consistent with scarring or atelectasis. 2. There are no acute cardiopulmonary findings. Assessment/Plan Assessment: Mr. Eddy is a 47-year-old M, current smoker (1/2 PPD x 20 yrs) with past medical history of alcohol use disorder, one episode of benzo/alcohol withdrawal seizures, multiple admissions for alcohol withdrawal, chronic neck pain, HTN who presents to the ED with alcohol withdrawal. Problem list: #Alcohol use disorder/withdrawal #Hypertensive - most likely 2/2 alcohol #Transaminitis - most likely 2/2 alcohol Plan: Admit to general med for further evaluation and management Serial troponins/ECG to rule out ACS We will monitor his liver functions Ativan per [facility] protocol Scheduled Ativan 2 mg q6h MVI, thiamine, folate supplement Nicotine patch Resume home meds: Gabapentin, Escitalopram, Metoprolol, Amlodipine, Cyclobenzaprine IV Protonix for epigastric discomfort Seizure precautions Psych consult Social work consult Diet: Regular DVT ppx: sc Lovenox Code: Full As Ranked By This Provider Problem List: 1. Alcohol dependence with withdrawal Qualifiers Complication of substance-induced condition: with unspecified complication Qualified Code: F10.239 - Alcohol dependence with withdrawal, unspecified Core Measures/Misc (03/25) Acute Coronary Syndrome ACS Diagnosis: No Congestive Heart Failure Congestive Heart Failure Diagnosis No Cerebrovascular Accident CVA/TIA Diagnosis: No VTE (View Protocol) VTE Risk Factors Age>40 No Mechanical VTE Prophylaxis d/t N/A MechProphylax Ordered No VTE Pharm Prophylaxis d/t NA PharmProphylax ordered Sepsis (View protocol) Sepsis Present: No If YES complete Sepsis Event Note If YES complete Sepsis Event Note Nadya Medellin MD 12/21/172045: Core Measures/Misc (03/25) Sepsis (View protocol) If YES complete Sepsis Event Note If YES complete Sepsis Event Note Resident Review Statement Resident Statement: examined this patient, discussed with consulting intern, agreed with consulting intern Other Findings: This is a 39-year-old male w/ past medical history significant for multiple admissions for alcohol detox, had one history of alcohol withdrawal seizures over 10 years ago, hypertension, OA, and anxiety, who comes in for chief complaint of alcohol detox. He was last discharged from [facility] for alcohol detox on 12/12/2017. He states that he went to his [facility] appointment after discharge but by Sunday when he got his pay check he resumed drinking his usual pint of vodka. His last drink was aroun noon on the day prior to admission. Since then he has experienced sweats, shakes, abdominal pain, nausea , dry heaves, palpitations, chest tightness, epigastric and back tenderness. He also endorses some left arm numbness. Due to constellation of symptoms he decided to come to ED. All his symptoms started abruptly today when he stopped drinking alcohol. Laboratory workup shows white count 12.3, sodium 135, chloride 94, glucose 185, AST 93, ALT 100, lipase 292. Negative troponin. U tox shows no evidence of alcohol. Assessment: This is a 39-year-old male w/ past medical history significant for alcohol use disorder, multiple admissions for alcohol detox, history of alcohol withdrawal seizure about 10 years ago, hypertension, OA, anxiety who comes in for chief complaint of alcohol detox. The CIWA scores in ED were 19, 6, 2, and 7. He is admitted to general medicine floor for further workup and treatment. Plan: 1. Alcohol withdrawal: * Scheduled Ativan 2 every 6 * Banana bag * Multivitamin * Folate * Thiamine * Social work consult * Psych consult * CIWA protocol * Continue home gabapentin 2. Hypertension: Patient's BP was up to 175/101 in ED. He has known history of hypertension. Unsure how much of his presentation is withdrawal versus essential hypertension. He got one dose of 5mg IV Labetalol in ED and his BP trended down. As we didn't want to precipitously drop his BP we gradually started his BP regimen with clonidine to be last administered if his BP remained elevated. * Continue amlodipine * Continue clonidine * Continue metoprolol (started today b/c labetalol given yesterday) 3. Hyponatremia: * Will hydrate and monitor 4. Abdominal pain: His lipase is only 392. At this time suspect that he might have alcoholic gastritis. Will give IV PPI and if he does not improve we'll proceed with further abdominal imaging. * IV PPI 5. Hyperglycemia: His glucose is 185. * Check HbA1c * Every shift Accu-Chek 6. Chest pain: Patient describes a chest pressure sensation with some arm numbness along with palpitations, abdominal pain, anxiety, and tremors. It is difficult to ascertain etiology of his symptoms given that he is actively withdrawing. * EKG and troponin 3 7. Transamanitis: Likely 2/2 etoh. * Con't trend Full code Chemical DVT prophylaxis Heart healthy diet Shanel Galvez 12/22/17 0455: Core Measures/Misc (03/25) Sepsis (View protocol) If YES complete Sepsis Event Note If YES complete Sepsis Event Note Attending MD Review Statement Attending Statement Attending MD Statement: examined this patient, discuss w/resident/PA/CUSHION MAKER, agreed w/resident/PA/CUSHION MAKER, reviewed EMR data (avail), reviewed images, amended to note Attending Assessment/Plan: CC: Alcohol detox PMH: Alcohol related seizure history 9-year-old back, HTN, chronic neck pain. Patient was recently admitted in hospital for all called detox. After successful detox he underwent outpatient detox but then relapsed on Sunday, (a week back) and started to binge drink again. He stopped yesterday at 12 now on and since then undergoing withdrawal symptoms. He also complains of epigastric pain, substernal pain, nonradiating, not associated with palpitation or dizziness, happens at rest associated with irritation in throat. He also has chronic aches and pains otherwise complete ROS unremarkable. Vitals: Temperature 98.9, pulse 92, RR 18, blood pressure 171/119, saturating 96 % on room air. On exam: A O 3, cooperative, no acute distress, neck supple, JVD normal, no lymphadenopathy, mucosa moist, no focal neurological deficit, no dependent edema , no obvious skin rashes or inflammation CVS: S1-S2, RRR. RS: Clear to auscultate bilaterally. Abdomen: Soft, NT, ND, bowel sounds present. CXR: 1. The study redemonstrates linear opacities in the left mid/lower zone laterally consistent with scarring or atelectasis. 2. There are no acute cardiopulmonary findings. Assessment and plan 47-year-old male with past medical history significant for hypertension chronic pain and all called use disorder with history of alcohol related seizure approximately 10 year back presented in ER for alcohol detox. Initially his CIWA score was high up to 19 but responded to Ativan. He was also found to have accelerated blood pressure, probably secondary to underlying blood pressure and alcohol withdrawal. We will continue all his home medications and when necessary Ativan. + Alcohol withdrawal + Accelerated blood pressure + Epigastric discomfort / chest pain: Gastritis/GERD. Rule out ACS + Transaminitis probably related to alcohol binge drinking + History of Alcohol related seizure history 9-year-old back, HTN, chronic neck pain - Admit to general medicine - Continue scheduled Ativan PO 2 milligram every 6 hours - Continue when necessary Ativan according to CIVT protocol - High-dose thiamine - PO folic acid - Check magnesium and phosphorus, today and tomorrow, replace if low - Seizure precaution - DVT prophylaxis - Adequate pain control - Continue amlodipine, clonidine, metoprolol for hypertension, patient may require diuretic is in addition for pressure control of blood pressure - Protonix 40 mg IV now for epigastric discomfort - Serial troponin and ECGs - Continue rest of his home medications - Repeat LFTs in a.m.
[2017-12-21 21:07] VITALS: BP 150/100
[2017-12-22] VITALS (10 sets, daily range): BP systolic 117–150; BP diastolic 76–100
--- NOTE | 2017-12-22 04:58 | Admission Certification ---
Admission Certification Certification Statement - As attending physician, I certify that at the time of - admission, based on clinical presentation, severity of - symptoms, need for further diagnostic testing and - therapeutic interventions, and risk of adverse outcomes - without in-hospital treatment, in my clinical assessment, - this patient requires an acute hospital stay for a minimum - of two nights or longer. I have also considered psychsocial - factors such as support system, advanced age, financial - issues, cognitive issues, and failed out-patient treatments, - past re-admission history, safety of patient, and lack of - compliance as applicable. Specific rationale supporting this admission is: alcohol detox, accelerated blood pressure
--- NOTE | 2017-12-22 08:40 | PN- Housestaff ---
Nicole STOKES,Joshua 12/22/17 0839: Subjective Follow-up For: alchohol use disorder ETOH withdrawal Subjective: patient is tremulous, anxious and nauseous Review of Systems Constitutional: Reports: see HPI. Objective Last 24 Hrs of Vital Signs/I&O Vital Signs Date Time Temp Pulse Resp B/P B/P Pulse O2 O2 Flow FiO2 Mean Ox Delivery Rate 12/22 1122 98.2 82 20 123/83 92 12/22 0841 80 146/90 12/22 0841 80 146/90 12/22 0840 80 146/90 12/22 0800 Room Air 12/22 0629 98.3 87 18 146/90 12/22 0604 98.3 87 18 146/90 95 Room Air 12/22 0000 98.9 90 18 150/100 12/21 2309 98.9 12/21 2301 90 150/100 12/21 2107 100.0 90 18 150/100 12/21 2107 94.0 90 18 150/100 12/21 2107 100.0 90 18 150/100 94 Room Air 12/21 2040 163/102 12/21 2029 99.3 97 24 163/102 98 Room Air 12/21 2021 172/101 12/21 1934 99.5 95 18 175/101 12/21 1934 99.5 95 18 175/101 95 Room Air 12/21 1737 99.0 85 23 169/109 12/21 1735 99.0 83 23 169/109 98 Room Air 12/21 1545 98.7 84 24 171/105 12/21 1541 83 24 171/105 96 Room Air 12/21 1455 97.6 92 18 171/119 12/21 1451 98.9 92 18 171/119 96 Room Air Intake & Output 12/22 1600 12/22 0800 12/22 0000 Intake Total 1000 100 Output Total 1300 Balance -300 100 Intake, IV 1000 Intake, Oral 100 Number 0 Bowel Movements Output, Urine 1300 Patient 84.368 kg Weight Physical Exam General Appearance: Alert, Oriented X3, Cooperative, No Acute Distress Cardiovascular: Regular Rate, Normal S1, Normal S2, No Murmurs Lungs: Clear to Auscultation, Normal Air Movement Abdomen: Normal Bowel Sounds, Soft, No Masses, very mild LUQ and epigastric tenderness Extremities: No Clubbing, No Cyanosis, No Edema, Normal Pulses Current Medications: Current Medications Sig/Romeo Start time Last Medication Dose Route Stop Time Status Admin Acetaminophen 1,000 MG ONCE PRN 12/21 2044 DC IV 12/21 2300 Amlodipine Besylate 5 MG DAILY 12/22 2015 AC 12/22 PO 0841 Clonidine 0.1 MG TID 12/21 2099 AC 12/22 PO 0841 Clonidine 0 .STK-MED ONE 12/21 2034 DC PO Cyanocobalamin/ 1 BAG DAILY@2200 12/21 2200 AC 12/21 Thiamine/Pyridoxine IV 12/24 0559 2302 Dextrose/Water 1,000 ML Enoxaparin Sodium 40 MG DAILY 12/22 09 AC 12/22 SC 0840 Escitalopram Oxalate 10 MG DAILY 12/22 09 AC 12/22 PO 0841 Folic Acid 1 MG DAILY 12/21 2025 AC 12/22 PO 12/23 0901 0841 Gabapentin 300 MG TID 12/21 2099 AC 12/22 PO 0841 Gabapentin 0 .STK-MED ONE 12/21 2034 DC PO Ibuprofen 400 MG .STK-MED ONE 12/21 2208 DC PO 12/21 2210 Ibuprofen 600 MG Q6P PRN 12/21 2029 AC 12/22 PO 0519 Labetalol HCl 0 .STK-MED ONE 12/21 2018 DC IV Labetalol HCl 5 MG ONCE ONE 12/22 1999 DC 12/21 IV 12/21 Lidocaine 1 PAT Q24H 12/21 2029 AC 12/21 EXT 2302 Lorazepam 1 MG Q6H 12/24 0000 AC 12/21 PO 12/24 1201 2040 Lorazepam 1.5 MG Q6 12/22 06 AC 12/22 PO 12/22 1801 1241 Lorazepam 2 MG Q6 12/21 2359 DC 12/22 PO 12/22 0000 0039 Lorazepam 0 .STK-MED ONE 12/22 2035 DC PO Lorazepam 1 MG Q1P PRN 12/21 2029 AC 12/21 PO 2042 Lorazepam 0 .STK-MED ONE 12/21 1513 DC .ROUTE Lorazepam 2 MG ONE ONE 12/21 1500 DC 12/21 IV 12/21 1501 1534 Metoprolol Succinate 100 MG DAILY 12/22 09 AC 12/22 PO 0840 Morphine Sulfate 2 MG Q4P PRN 12/21 2099 AC IV Morphine Sulfate 2 MG Q4P PRN 06/15 2030 DC IV Multivitamins 1 TAB DAILY 12/21 2025 AC 12/22 PO 0840 Nicotine 14 MG DAILY 12/22 0900 AC 12/22 TOP 0840 Omeprazole 40 MG DAILY 12/22 0700 CAN PO Ondansetron HCl 4 MG Q6P PRN 12/21 2029 AC 12/21 IV 2134 Ondansetron HCl 0 .STK-MED ONE 12/21 1537 DC .ROUTE Ondansetron HCl 4 MG ONCE ONE 12/21 1530 DC 12/21 IV 12/21 1531 1540 Pantoprazole Sodium 40 MG DAILY 12/21 2345 AC 12/22 IV 0840 Thiamine HCl 100 MG DAILY 12/21 2025 AC 12/22 PO 12/23 0901 0840 Last 24 Hrs of Lab/Mayco Results Last 24 Hrs of Labs/Mics: Laboratory Tests 12/22/17 0020: Phosphorus 3.4, Magnesium 1.1 L, Total Bilirubin 0.6, Direct Bilirubin 0.2, AST 80 H, ALT 85 H, Alkaline Phosphatase 74, Troponin I < 0.01, Total Protein 6.2 L, Albumin 3.4 L 12/21/17 1642: Urine Opiates Screen < 100, Methadone Screen 43, Barbiturate Screen < 60, Ur Phencyclidine Scrn < 6.00, Amphetamines Screen < 100, U Benzodiazepines Scrn < 85, Urine Cocaine Screen < 50, Urine Cannabis Screen < 5.00 12/21/17 1525: Anion Gap 16, Estimated GFR > 60, BUN/Creatinine Ratio 21.4, Glucose 185 H, Calcium 8.7, Total Bilirubin 0.6, AST 93 H, ALT 100 H, Alkaline Phosphatase 70 , Troponin I < 0.01, Total Protein 7.2, Albumin 4.0, Globulin 3.2, Albumin/ Globulin Ratio 1.3, Lipase 392 H, CBC w Diff NO MAN DIFF REQ, RBC 5.18, MCV 92.7, MCH 31.8 H, MCHC 34.3, RDW 13.3, MPV 8.1, Gran % 70.1, Lymphocytes % 20.1 L, Monocytes % 9.3, Eosinophils % 0.2, Basophils % 0.3, Absolute Granulocytes 8.6 H, Absolute Lymphocytes 2.5, Absolute Monocytes 1.1 H, Absolute Eosinophils 0, Absolute Basophils 0, Serum Alcohol < 10.0 12/21/17 1453: Troponin I Cancelled Assessment/Plan Assessment: 47 year old male smoker with PMH of alcohol use disorder and withdrawal seizures , HTN, and chronic pain with multiple admissions for detox presents with alcohol withdrawal. Alcohol use disorder/withdrawal: Continue Ativan taper, 1.5mg po q6h today CIWA monitoring and prn ativan, 0-7 today, 19 yesterday Social work consultation for aftercare, previously quit his IOP and has had inpt tx Continue MVT, thiamine, folate Monitor LFTs Seizure precautions Continue PO PPI Hypertension in the setting of EtOH withdrawal Continue metoprolol and norvasc Smoking: Continue nicotine replacement Anxiety: Continue lexapro and neurontin Regular diet DVT ppx-Lovenox subcutaneous Full code Problem List: 1. Alcohol dependence with withdrawal Pain Ratin Pain Location: n/a Pain Goal: Pain 4 or less Pain Plan: prn Tomorrow's Labs & Rationales: cbc, bep, lft, mag, phos Linda Chavez 12/22/17 1106: Attending MD Review Statement Attending Statement Attending MD Statement: examined this patient, discuss w/resident/PA/DIRECTOR OF BANDS, agreed w/resident/PA/DIRECTOR OF BANDS, discussed with family, reviewed EMR data (avail), discussed with nursing, discussed with case mgmt, reviewed images, amended to note Attending Assessment/Plan: Minh seen/examined bedside. Patient here for alcohol withdrawal with high CIWA on admission. Contiue ativan taper and multivitamin, Monitor bp. Ativan prn for seizures. Continue current care..
--- NOTE | 2017-12-22 17:06 | Cons- Psychiatry ---
Psychiatric Consult Date of Consult: 12/22/17 Reason for Consult: Alcohol use disorder Allergies: Coded Allergies: No Known Allergies (11/09/15) Past History Past Medical History Neurological: seizure EENT: NONE Cardiovascular: hypertension Respiratory: bronchitis Gastrointestinal: GERD Hepatic: NONE Renal: NONE Musculoskeletal: osteoarthritis, spinal stenosis Psychiatric: anxiety, Alcohol use disorder Endocrine: NONE Blood Disorders: NONE Cancer(s): NONE [employer]/Reproductive: NONE Past Surgical History Surgical History: 1 Psychosocial History Strengths/Capabilities: Motivated for treatment; recently started new job at [employer] Physical Limitations (Interventions): Unknown Psychiatric Treatment History Diagnosis: Alcohol use disorder Substance-induced mood disorder R/O anxiety, unspecified Risk Factors: chronic/serious med cond., SA/MH hospitalized, substance abuse, male Assessment/Plan Impression: CC: "I relapsed again" 47 y/o single, domiciled man, employed at [employer], with longstanding history of alcohol use disorder beginning age 24. Reports frequent cycles of relapse and sobriety, though admits the sobriety periods are shortening as he gets older. Now reports after 1 week of sobriety began drinking heavily x ~4 days, and again abruptly stopping. Developed tremulousness, malaise, and instead of returning to drinking thought to himself that he wasnted to seek help for alcohol use. After a recnet in medicine stay for EtOH was referred to [facility] but he did not follow up adequately. "That's all me. I just need to get to it". Does endorse some accompanying mild depression and generalized anxiety, denies suicidal thoughts, denies HI, no auditory or visual hallucinations. Denies substance use other than alcohol. Take lexapro and gabapentin from PCP. No current AA involvement though previously was AA involved nad had a sponsor. REports motivation for AA currently. Does not want to try and find inpatient rehab because he would not be able to keep his job at [employer]. MSE: adequately groomed CM, appears comfortable, minimally tremulous, speech wnl , mood "ok", affect mildly constricted, non-labile, TP log/linear, denies SI/HI, denies AVH, cognition: alert, oriented to name, date, place, recent/remote memory intact, naming/repetition intact, i/j fair. Vitals, labs, studies reviewed. Benzos: 12/21: 2 mg ativan 6/16: 5 mg ativan so far CIWAs: 0<--4<--0<--0 Vitals: persistently elevated bp Assessment: Alcohol use disorder, severe accompanied by moderate alcohol withdrawal. Does not evidence co-occurring severe psychiatric symptoms or imminent dangerousness. Recs: -Not in need of acute psychiatric hospitalization -Continue treating alcohol withdrawal as you are doing -SW to assist with followup - would suggest intensive commitment to as well as return to [facility]. He is not interested in inpatient rehab. -Continue lexapro as you are doing. -Would suggest starting naltrexone 50 mg PO daily for treatment of alcohol use disorder upon resolution of mild transaminitis (could be delayed until outptient if LFTs not improved substantially) -Thank you for this consult
[2017-12-23] VITALS (7 sets, daily range): BP systolic 106–144; BP diastolic 70–89
[2017-12-23 08:53] LABS: ABSOLUTE BASOPHIL COUNT 0 /CUMM (0.0-0.2); ABSOLUTE EOSINOPHIL COUNT 0.2 /CUMM (0.0-0.7); ABSOLUTE MONOCYTE COUNT 0.8 /CUMM (0.10-0.60); BASOPHIL % 0.3 % (0.0-2.0); MEAN CORPUSCULAR HGB 32.1 PG (27.0-31.0); MEAN PLATELET VOLUME 8.8 FL (7.4-10.4); PLATELET COUNT 162 /CUMM (130-400); WHITE BLOOD CELL COUNT 11.9 /CUMM (4.8-10.8)
[2017-12-23 09:04] LABS: ABSOLUTE GRANULOCYTE CT 7.5 /CUMM (1.4-6.5); ABSOLUTE LYMPH COUNT 3.4 /CUMM (1.2-3.4); EOSINOPHIL % 1.7 % (0-5); MEAN CORPUSCULAR HGB CONC 35.4 G/DL (33.0-37.0); MEAN CORPUSCULAR VOLUME 90.6 FL (80.0-94.0); RBC DISTRIBUTION WIDTH 13.6 % (11.5-14.5); RED BLOOD CELL CT 4.43 /CUMM (4.70-6.10)
[2017-12-23 09:05] LABS: HEMATOCRIT 40.1 % (42-52)
--- NOTE | 2017-12-23 12:07 | PN- Att Addend ---
Attending Addendum Attending Brief Note Minh seen/examined bedside. Patient on [facility] protocol for ativan taper and his vitals remain stable. Pyromeo noted no active suicidal ideations. Continue ativan taper. C/w thiamine, folic acid, replete magnesium as necessary. Admission Lab Results I reviewed the following labs: Laboratory Tests 12/23 0615 Chemistry Sodium (137 - 145 mmol/L) 131 L Potassium (3.5 - 5.1 mmol/L) 3.2 L Chloride (98 - 107 mmol/L) 94 L Carbon Dioxide (22 - 30 mmol/L) 27 Anion Gap (5 - 16) 10 BUN (9 - 20 mg/dL) 12 Creatinine (0.7 - 1.2 mg/dL) 0.6 L Estimated GFR (>60 ml/min) > 60 BUN/Creatinine Ratio (7 - 25 %) 20.0 Hemoglobin A1c (4.2 - 5.8 %) Pending Phosphorus (2.5 - 4.5 mg/dL) 3.1 Magnesium (1.6 - 2.3 mg/dL) 1.7 Total Bilirubin (0.2 - 1.3 mg/dL) 1.0 Direct Bilirubin (< 0.4 mg/dL) 0.1 AST (17 - 59 U/L) 35 ALT (21 - 72 U/L) 63 Alkaline Phosphatase (< 127 U/L) 97 Total Protein (6.3 - 8.2 g/dL) 6.0 L Albumin (3.5 - 5.0 g/dL) 3.3 L Hematology CBC w Diff NO MAN DIFF REQ WBC (4.8 - 10.8 /CUMM) 11.9 H RBC (4.70 - 6.10 /CUMM) 4.43 L Hgb (14.0 - 18.0 G/DL) 14.2 Hct (42 - 52 %) 40.1 L MCV (80.0 - 94.0 FL) 90.6 MCH (27.0 - 31.0 PG) 32.1 H MCHC (33.0 - 37.0 G/DL) 35.4 RDW (11.5 - 14.5 %) 13.6 Plt Count (130 - 400 /CUMM) 162 MPV (7.4 - 10.4 FL) 8.8 Gran % (42.2 - 75.2 %) 63.0 Lymphocytes % (20.5 - 51.1 %) 28.1 Monocytes % (1.7 - 9.3 %) 6.9 Eosinophils % (0 - 5 %) 1.7 Basophils % (0.0 - 2.0 %) 0.3 Absolute Granulocytes (1.4 - 6.5 /CUMM) 7.5 H Absolute Lymphocytes (1.2 - 3.4 /CUMM) 3.4 Absolute Monocytes (0.10 - 0.60 /CUMM) 0.8 H Absolute Eosinophils (0.0 - 0.7 /CUMM) 0.2 Absolute Basophils (0.0 - 0.2 /CUMM) 0 Admission Meds I reviewed the following Meds: Current Medications Sig/Romeo Start time Last Medication Dose Stop Time Status Admin Amlodipine Besylate 5 MG DAILY 12/22 2015 AC 12/23 (Norvasc) 0822 Clonidine 0.1 MG TID 12/21 2099 AC 12/23 (Catapres) 0822 Enoxaparin Sodium 40 MG DAILY 12/22 09 AC 12/23 (Lovenox) 0822 Escitalopram Oxalate 10 MG DAILY 12/22 09 AC 12/23 (Lexapro) 0822 Gabapentin 300 MG TID 12/21 2099 AC 12/23 (Neurontin) 0822 Ibuprofen 600 MG Q6P PRN 12/21 2029 AC 12/23 (Motrin) 0824 Lidocaine 1 PAT Q24H 12/21 2029 AC 12/23 (Lidoderm) 0132 Lorazepam 1 MG Q6 12/23 0814 AC 12/23 (Ativan) 1157 Lorazepam 1 MG Q1P PRN 12/21 2029 AC 12/21 (Ativan) 2042 Metoprolol Succinate 100 MG DAILY 12/22 09 AC 12/23 (Toprol Xl) 0822 Morphine Sulfate 2 MG Q4P PRN 12/21 2100 AC (MORPHINE SULFATE) Multivitamins 1 TAB DAILY 12/21 2025 AC 12/23 (Theragran Vitamins) 0822 Nicotine 14 MG DAILY 12/22 09 AC 12/23 (Nicotine Cq) 0822 Omeprazole 40 MG DAILY AC 12/23 0700 AC 12/23 (Prilosec) 0629 Ondansetron HCl 4 MG Q6P PRN 12/21 2029 AC 12/21 (Zofran) 2133
[2017-12-24] VITALS (7 sets, daily range): BP systolic 127–138; BP diastolic 79–89
--- NOTE | 2017-12-24 07:23 | PN- Housestaff ---
See Addendum Subjective Follow-up For: alchohol use disorder ETOH withdrawal Subjective: CIWA 0. No complaints or acute events overnight Review of Systems Constitutional: Reports: see HPI. Objective Last 24 Hrs of Vital Signs/I&O Vital Signs Date Time Temp Pulse Resp B/P B/P Pulse O2 O2 Flow FiO2 Mean Ox Delivery Rate 12/24 0620 98.3 92 18 127/86 95 Room Air 12/24 0208 98.8 84 18 136/80 94 Room Air 12/23 2153 98.9 91 18 130/89 96 12/23 2020 98.3 79 18 127/82 12/23 1734 98.3 79 18 127/82 95 12/23 1515 97.9 79 18 106/72 93 12/23 1417 70 106/72 12/23 1038 98.3 88 18 128/81 92 Intake & Output 12/24 1600 12/24 0800 12/24 0000 Intake Total 300 300 Output Total Balance 300 300 Intake, Oral 300 300 Physical Exam General Appearance: Alert, Oriented X3, Cooperative, No Acute Distress Cardiovascular: Regular Rate, Normal S1, Normal S2 Lungs: Clear to Auscultation, Normal Air Movement Abdomen: Normal Bowel Sounds, Soft, No Tenderness Extremities: No Edema Current Medications: Current Medications Sig/Romeo Start time Last Medication Dose Route Stop Time Status Admin Amlodipine Besylate 5 MG DAILY 12/22 2015 AC 12/23 PO 08 Clonidine 0.1 MG TID 12/21 2099 AC 12/23 PO 2020 Enoxaparin Sodium 40 MG DAILY 12/22 09 AC 12/23 SC 0822 Escitalopram Oxalate 10 MG DAILY 12/22 09 AC 12/23 PO 0822 Gabapentin 300 MG TID 12/21 2099 AC 12/23 PO 2019 Ibuprofen 600 MG Q6P PRN 12/21 2029 AC 12/23 PO 202 Lidocaine 1 PAT Q24H 12/21 2029 AC 12/23 EXT 2020 Lorazepam 1 MG 0800,1700 12/24 1700 AC PO Lorazepam 1 MG Q6H 12/24 0000 DC 12/21 PO 12/24 1201 2040 Lorazepam 1 MG Q6 12/23 0814 DC 12/24 PO 0514 Lorazepam 1 MG Q1P PRN 12/21 2030 AC 12/21 PO 2042 Metoprolol Succinate 100 MG DAILY 12/22 0900 AC 06/17 PO 0822 Morphine Sulfate 2 MG Q4P PRN 12/21 2100 AC IV Multivitamins 1 TAB DAILY 12/21 2025 AC 12/23 PO 0822 Nicotine 14 MG DAILY 12/22 09 AC 12/23 TOP 0822 Omeprazole 40 MG DAILY AC 12/23 0700 AC 12/24 PO 0514 Ondansetron HCl 4 MG Q6P PRN 12/21 2030 AC 12/21 IV 2134 Potassium Chloride 40 MEQ ONCE ONE 12/23 1929 DC 12/23 PO 12/23 Last 24 Hrs of Lab/Mayco Results Last 24 Hrs of Labs/Mics: Laboratory Tests 12/24/17 0610: Anion Gap 12, Estimated GFR > 60, BUN/Creatinine Ratio 16.7, CBC w Diff NO MAN DIFF REQ, RBC 4.12 L, MCV 90.7, MCH 32.2 H, MCHC 35.5, RDW 13.5, MPV 8.8, Gran % 59.4, Lymphocytes % 31.0, Monocytes % 5.6, Eosinophils % 3.5, Basophils % 0.5, Absolute Granulocytes 6.2, Absolute Lymphocytes 3.2, Absolute Monocytes 0.6, Absolute Eosinophils 0.4, Absolute Basophils 0.1 Assessment/Plan Assessment: Mr. Eddy is a 47-year-old M, current smoker (1/2 PPD x 20 yrs) with past medical history of alcohol use disorder, one episode of benzo/alcohol withdrawal seizures, multiple admissions for alcohol withdrawal, chronic neck pain, HTN who presents to the ED with alcohol withdrawal. Problem list: #Alcohol use disorder/withdrawal #Hypertensive - most likely 2/2 alcohol #Transaminitis - most likely 2/2 alcohol - resolved #Hyponatremia - improving Plan: Ativan per CIWA protocol Scheduled Ativan taper 1 mg q12h MVI, thiamine, folate supplement Continue Nicotine patch continue Gabapentin, Escitalopram, Metoprolol, Amlodipine, Cyclobenzaprine, omeprazole Seizure precautions Psych recommends Naltrexone but compliance an issue Appreciate Psych recommendations Appreciate Social recommendations Diet: Regular DVT ppx: sc Lovenox Code: Full Problem List: 1. Alcohol dependence with withdrawal Pain Ratin Pain Location: NA Pain Goal: Remain pain free Pain Plan: NA Tomorrow's Labs & Rationales: BEP
[2017-12-24 08:34] LABS: ABSOLUTE BASOPHIL COUNT 0.1 /CUMM (0.0-0.2); ABSOLUTE EOSINOPHIL COUNT 0.4 /CUMM (0.0-0.7); ABSOLUTE GRANULOCYTE CT 6.2 /CUMM (1.4-6.5); ABSOLUTE LYMPH COUNT 3.2 /CUMM (1.2-3.4); ABSOLUTE MONOCYTE COUNT 0.6 /CUMM (0.10-0.60); BASOPHIL % 0.5 % (0.0-2.0); EOSINOPHIL % 3.5 % (0-5); GRANULOCYTE % 59.4 % (42.2-75.2); HEMATOCRIT 37.3 % (42-52); MEAN CORPUSCULAR HGB 32.2 PG (27.0-31.0); MEAN CORPUSCULAR HGB CONC 35.5 G/DL (33.0-37.0); MEAN CORPUSCULAR VOLUME 90.7 FL (80.0-94.0); MEAN PLATELET VOLUME 8.8 FL (7.4-10.4); PLATELET COUNT 168 /CUMM (130-400); RBC DISTRIBUTION WIDTH 13.5 % (11.5-14.5); RED BLOOD CELL CT 4.12 /CUMM (4.70-6.10); WHITE BLOOD CELL COUNT 10.4 /CUMM (4.8-10.8)
--- NOTE | 2017-12-24 09:27 | Discharge Summary ---
Visit Information Visit Dates Admission Date: 12/21/17 Discharge Date: 12/26/17 Hospital Course Course Attending Physician: Shanel Galvez MD Primary Care Physician: Jorden STOKES,Dk Nelson [facility] Course: Mr. Eddy is a 47-year-old gentleman with past medical history of alcohol abuse with 2 episodes of alcohol detox, one episode of benzo/alcohol withdrawal seizures and HTN who presents to the ED with alcohol withdrawal. He was admitted to general medical floor for further evaluation and management #Alcohol use disorder/withdrawal Patient was given Ativan per [facility] protocol in addition to Scheduled Ativan that was eventually tapered. He was given MVI, thiamine, folate supplementation. #Hypertension His blood pressure was persistently elevated despite being on antihypertensives which we suspected was due to his alcohol withdrawal. He initially required IV Labetalol. We continued his home meds #Transaminitis His elevated LFT were suspected to be due to alcohol use. It eventually trended down to normal #Chronic medical conditions He was resumed on his home meds. He was given Nicotine patch for smoking cessation and a Lidoderm patch for back pain. Allergies: Coded Allergies: No Known Allergies (11/09/15) Pertinent Lab Results: 12/21/17-1516 EXAM TYPE: RAD - XRY-PORTABLE CHEST XRAY IMPRESSION: 1. The study redemonstrates linear opacities in the left mid/lower zone laterally consistent with scarring or atelectasis. 2. There are no acute cardiopulmonary findings. Disposition Summary Disposition Principal Diagnosis: Alcohol use disorder/withdrawal Uncontrolled Hypertension Transaminitis Additional Diagnosis: as above Discharge Disposition: home or self care Discharge Instructions General Discharge Information Code Status: Full Code Patient's Diet: Regular Patient's Activity: Full Follow-Up Instructions/Appts: Follow up with your PCP within 1-2 weeks of discharge Follow up with the IOP upon discharge Medications at Discharge Discharge Medications: Continue taking these medications: Metoprolol Succ XL (Toprol XL) 100 MG TAB.ER.24H 1 Tablet ORAL DAILY Comments: Last Taken: 12/25/17 Time: 815AM Escitalopram Oxalate (Lexapro) 20 MG TABLET 1 Tablet ORAL Every night Comments: Last Taken: 12/25/17 Time: 08:15 Fluticasone/Salmeterol (Advair 250-50 Diskus) 1 EACH BLST.W.DEV 1 Puff Inhale through mouth DAILY Comments: PATIENT DID NOT TAKE IN HOSPITAL Gluc 2KCL/Chondr/Cecile Hy/Hy AC (Glucosamine & Chondroitin Cap) 375 MG-300 MG-175 MG-2 MG CAPSULE 1 Tablet ORAL DAILY Comments: NOT GIVEN IN HOSPITAL Cholecalciferol (Vitamin D3) (Vitamin D) 2,000 UNIT CAPSULE 1 Capsule ORAL DAILY Qty = 60 Comments: DID NOT ADMINISTER IN HOSPITAL Multiple Vitamin (Multivitamins) 1 EACH TABLET 1 Tablet ORAL DAILY Qty = 30 Comments: Last Taken: 12/25/17 Time: 815AM Lidocaine (Lidocaine) 5 % ADH..PATCH 1 Patch On the skin DAILY Qty = 30 Comments: Last Taken: 12/24/17 Time: 9PM Thiamine HCl (Vitamin B-1) 50 MG TABLET 50 Milligram ORAL DAILY Qty = 30 Instructions: . Comments: Last Taken: 12/25/17 Time: 815AM Folic Acid (Folic Acid) 1 MG TABLET 1 Milligram ORAL DAILY Qty = 30 Instructions: . Comments: Last Taken: 12/25/17 Time: 0815AM Omeprazole (Omeprazole) 20 MG CAPSULE.DR 40 Milligram ORAL DAILY BEFORE BREAKFAST Qty = 14 Instructions: . Comments: Last Taken: 12/25/17 Time: 0630AM Nicotine (Nicotine Patch) 14 MG/24 HOUR PATCH.TD24 14 Milligram On the skin DAILY Qty = 7 Instructions: . Comments: Last Taken: 12/25/17 Time: 815AM Cyclobenzaprine HCl (Cyclobenzaprine HCl) 5 MG TABLET 5 Milligram ORAL TWICE DAILY as needed for neck pain Qty = 10 Instructions: . Comments: DID NOT ADMINISTER IN HOSPITAL Clonidine HCl (Catapres) 0.1 MG TABLET 0.1 Milligram ORAL THREE TIMES DAILY Qty = 21 Comments: Last Taken: 12/25/17 Time: 0815 Amlodipine Besylate (Amlodipine Besylate) 5 MG TABLET 5 Milligram ORAL DAILY Qty = 30 Instructions: . Comments: Last Taken:12/25/17 Time:0815 Gabapentin (Gabapentin) 300 MG CAPSULE 1 Capsule ORAL THREE TIMES DAILY Qty = 90 Comments: Last Taken: 12/25/17 Time: 0815AM Naproxen (Naproxen) 500 MG TABLET 1 Tablet ORAL TWICE DAILY as needed for PAIN Qty = 60 Comments: DID NOT ADMINISTER IN HOSPITAL Copies To: Jorden STOKES,Dk Nelson
--- NOTE | 2017-12-24 10:42 | Patient Discharge Instructions ---
Discharge Instructions General Discharge Information You were seen/treated for: Alcohol withdrawal You had these procedures: none Special Instructions: Follow up with your PCP within 1-2 weeks of discharge Follow up with the IOP upon discharge Diet Continue normal diet: Yes Activity Full Activity/No Limits: Yes Acute Coronary Syndrome Inclusion Criteria At DC or during hospital stay patient has or had the following: ACS DIAGNOSIS No Discharge Core Measures Meds if any: Prescribed or Continued at Discharge Meds if any: NOT Prescribed or Continued at Discharge Congestive Heart Failure Inclusion Criteria At DC or during hospital stay patient has or had the following: CHF DIAGNOSIS No Discharge Core Measures Meds if any: Prescribed or Continued at Discharge Meds if any: NOT Prescribed or Continued at Discharge Cerebrovascular accident Inclusion Criteria At DC or during hospital stay patient has or had the following: CVA/TIA Diagnosis No Discharge Core Measures Meds if any: Prescribed or Continued at Discharge Meds if any: NOT Prescribed or Continued at Discharge Venous thromboembolism Inclusion Criteria VTE Diagnosis No VTE Type NONE VTE Confirmed by (Test) NONE Discharge Core Measures - Per Current guidelines, there needs to be overlap - treatment for the first 5 days of Warfarin therapy. - If discharged on Warfarin prior to 5 days of - overlap therapy, the patient will need to be - assessed for post discharge needs including - *Post discharge parental anticoagulation - *Warfarin and/or parental anticoagulation education - *Follow up date to check INR post discharge At least 5 days overlap therapy as Inpatient No Meds if any: Prescribed or Continued at Discharge Note: Overlap Therapy is Warfarin and Anticoagulant Meds if any: NOT Prescribed or Continued at Discharge
[2017-12-25] VITALS: BP 127/81
[2017-12-25 02:00] VITALS: BP 138/80
[2017-12-25 04:00] VITALS: BP 138/80
[2017-12-25 05:57] VITALS: BP 140/93
[2017-12-25 06:00] VITALS: BP 138/80
--- NOTE | 2017-12-25 07:24 | PN- Housestaff ---
Subjective Follow-up For: Alcohol Withdrawl Subjective: Patient says he is ready to be discharged today as he has to go for work tomorrow, and will be following up with IOP after discharge. Also mentions chronic neck pain for which he will be seeing pain manaagment and physical therapy as outpatient. Review of Systems Constitutional: Reports: no symptoms. EENTM: Reports: no symptoms. Cardiovascular: Reports: no symptoms. Respiratory: Reports: no symptoms. Gastrointestinal: Reports: no symptoms. Genitourinary: Reports: no symptoms. Musculoskeletal: Reports: neck pain. Skin: Reports: no symptoms. Neurological/Psychological: Reports: numbness. Hematologic/Endocrine: Reports: no symptoms. Immunologic/Allergic: Reports: no symptoms. Objective Last 24 Hrs of Vital Signs/I&O Vital Signs Date Time Temp Pulse Resp B/P B/P Pulse O2 O2 Flow FiO2 Mean Ox Delivery Rate 12/25 0817 86 18 148/92 12/25 0817 86 18 148/92 12/25 0816 86 18 148/92 12/25 0600 98.6 88 20 138/80 12/25 0557 98.4 81 20 140/93 96 Room Air 12/25 0400 98.6 88 20 138/80 12/25 0200 98.6 88 20 138/80 94 Room Air 12/25 0000 89 19 127/81 12/24 2153 98.1 89 20 127/81 95 12/24 2136 89 127/81 12/24 2000 89 18 127/81 12/24 1827 98.6 81 20 131/79 95 12/24 1517 98.7 88 20 130/87 96 Intake & Output 12/25 1600 12/25 0800 12/25 0000 Intake Total 500 200 Output Total Balance 500 200 Intake, Oral 500 200 Patient 185 lb Weight Physical Exam General Appearance: Alert, Oriented X3, Cooperative, No Acute Distress Skin: No Rashes, No Breakdown Cardiovascular: Regular Rate, Normal S1, Normal S2 Lungs: Clear to Auscultation, Normal Air Movement Abdomen: Normal Bowel Sounds, Soft, No Tenderness Extremities: No Clubbing, No Cyanosis, No Edema Current Medications: Current Medications Sig/Romeo Start time Last Medication Dose Route Stop Time Status Admin Amlodipine Besylate 5 MG DAILY 12/22 2015 AC 12/25 PO 08 Clonidine 0.1 MG TID 12/21 2099 AC 12/25 PO 0817 Enoxaparin Sodium 40 MG DAILY 12/22 09 AC 12/25 SC 0818 Escitalopram Oxalate 10 MG DAILY 12/22 0900 AC 12/25 PO 0817 Gabapentin 300 MG TID 12/21 2099 AC 12/25 PO 0817 Ibuprofen 600 MG Q6P PRN 12/21 2029 AC 12/23 PO 2024 Lidocaine 1 PAT Q24H 12/21 2029 AC 12/24 EXT 2136 Lorazepam 1 MG 0800,1700 12/24 1700 DC 12/25 PO 0813 Lorazepam 1 MG Q1P PRN 12/21 2029 AC 12/21 PO 2042 Metoprolol Succinate 100 MG DAILY 12/22 09 AC 12/25 PO 0816 Morphine Sulfate 2 MG Q4P PRN 12/21 2100 AC IV Multivitamins 1 TAB DAILY 12/21 2025 AC 12/25 PO 0816 Nicotine 14 MG DAILY 12/22 09 AC 12/25 TOP 0819 Omeprazole 40 MG DAILY AC 12/23 0700 AC 12/25 PO 0626 Ondansetron HCl 4 MG Q6P PRN 12/21 2029 AC 12/21 IV 2134 Patient Medication 1 ED ONE ONE 12/24 1330 DC 12/24 Teaching ED 12/24 1331 1337 Last 24 Hrs of Lab/Mayco Results Last 24 Hrs of Labs/Mics: Laboratory Tests 12/25/17 0625: Anion Gap 10, Estimated GFR > 60, BUN/Creatinine Ratio 13.3 Assessment/Plan Assessment: Mr. Eddy is a 47-year-old M, current smoker (1/2 PPD x 20 yrs) with past medical history of alcohol use disorder, one episode of benzo/alcohol withdrawal seizures, multiple admissions for alcohol withdrawal, chronic neck pain, HTN who presents to the ED with alcohol withdrawal. Problem list: #Alcohol use disorder/withdrawal #Hypertensive - most likely 2/2 alcohol #Transaminitis - most likely 2/2 alcohol - resolved #Hyponatremia - resolved Plan: Ativan per CIWA protocol Scheduled Ativan taper 1 mg daily. Will stop after this morning dose as Overnight CIWA has been 0. MVI, thiamine, folate supplement Continue Nicotine patch continue Gabapentin, Escitalopram, Metoprolol, Amlodipine, Cyclobenzaprine, omeprazole Seizure precautions Psych recommends Naltrexone but compliance an issue Appreciate Psych recommendations Appreciate Social recommendations; outpatient IOP Diet: Regular DVT ppx: sc Lovenox Code: Full Problem List: 1. Alcohol dependence with withdrawal Pain Ratin Pain Location: Neck Pain Goal: Remain pain free Pain Plan: Gabapentin, Naproxen Tomorrow's Labs & Rationales: None
[2017-12-25 08:17] VITALS: BP 148/92
--- NOTE | 2017-12-25 11:26 | PN- Att Addend ---
Attending Addendum Attending Brief Note Patient seen and examined, overall doing better. Her CIWA scores are running low. Patient completes the Ativan taper. Vital signs are stable. Medically stable for discharge home today. Outpatient follow-up with IOP. Continue home medications and follow-up with primary care doctor as an outpatient.
== END 2017-12-25 12:00 | DRG 775 ==
LOC: ERH 14:40 → 2NA 19:51 → ERHI 19:51 → ENTRNSPT 20:46 → EDTRNSPTSTS 20:53 → EDTRNSPT 20:53 → 2NA 21:01 → CMPTRNSPT 21:11 → ENPENDDIS 12-25 09:13 → 2NA 12-25 11:11
PROVIDERS: Physician Assistant; Preventive Medicine Public Health & General Preventive Medicine; Student in an Organized Health Care Education/Training Program
DX: F10.239 Alcohol dependence with withdrawal, unspecified (principal); R74.0 Nonspecific elevation of levels of transaminase and lactic acid dehydrogenase [LDH]; Y90.0 Blood alcohol level of less than 20 mg/100 ml; E87.1 Hypo-osmolality and hyponatremia; F17.210 Nicotine dependence, cigarettes, uncomplicated; I10 Essential (primary) hypertension; F41.9 Anxiety disorder, unspecified; R73.9 Hyperglycemia, unspecified
CPT/HCPCS: 2NASP; 36415; 36592; 71045; 80307; 82436; 93005; 93010; 96374; 96375; G0480; J0131; J1650; J2405; J3490; J7060; J7508